=== PATIENT | female | born 1980 | race Caucasian/White ===

== ENCOUNTER 2016-05-14 08:01 | Emergency (ER) | payer OTHER ==
[~2016-05-14] VITALS: Ht 165.1 cm; Wt 149.6 kg
[~2016-05-14 08:01] MED LIST: ALBU18HF INH; ALBU8.5H2 INHALATION; BENZ-12 PO; CEPH500C PO; DIHY1SPR NS; DILT60TA PO; FLEC100T2 PO; HYDR25TA4 PO; IBUP800T28 PO; LEVO88TA4 PO; LORA-303 PO; LURA60TA PO; MULT-1018 PO; NYST1POW23 TOPICAL; OXYC1TAB24 PO; POTA20TA16 PO; SOMA350 PO; VERA180T5 PO
[2016-05-14 08:08] VITALS: BP 139/98; PULSE 81; RESP 20; O2SAT 99
[2016-05-14 08:58] VITALS: BP 120/67; PULSE 84; RESP 22; O2SAT 97
--- NOTE | 2016-05-14 09:03 | ED.REPORT ---
HPI-Chest Pain 40 and Over Date of Service May 14, 2016 ED Provider: Eriberto Cooper MD History of Present Illness: There is no template for palpitations, so this template was used 36 year old female with a history of Afib on Flecainide and Diltiazem, HTN and SVT who presents to the ED due to a sudden onset of palpitations this morning at 0600 when she woke up. With the palpitations she reports associated chest heaviness, SOB, dizziness, lightheadedness, mild headache and diaphoresis. She has a home pulse ox which showed a heart rate of 138. Her heart rate improved after taking her normal dose of Flecainide this morning after her symptoms lasted for approximately 1 hour. Pt denies taking any recent stimulant including caffeine, alcohol and drug use. Pt is currently on Prednisone for bronchitis. She is not on anticoagulants. Pt denies edema. 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 Baltazar Nursing Notes Stated Complaint: HIGH HR/SOB Chief Complaint: Dysrhythmia/Cardiac Nursing Notes Reviewed: Yes ([employer] not reconciled) Allergies: Coded Allergies: azithromycin (Verified Allergy, Severe, causes a-fib, 07/14/15) White (Verified Allergy, Intermediate, Rash, 10/24/14) citric acid (Verified Allergy, Intermediate, Rash, 10/24/14) hydrocodone bitartrate (Verified Allergy, Mild, GI, 10/24/14) Scheduled Albuterol HFA (Proair HFA) 8.5 Gm Hfa.aer.ad 2 PUFFS INHALATION Q4H Cephalexin (Cephalexin) 500 Mg Capsule 500 MG PO QID Flecainide Acetate (Flecainide Acetate) 100 Mg Tablet 100 MG PO BID Hydrochlorothiazide (Hydrochlorothiazide) 25 Mg Tablet 25 MG PO DAILY Levothyroxine (Levothyroxine) 88 Mcg Tablet 88 MCG PO DAILY Lurasidone (Latuda) 60 Mg Tablet 60 MG PO HS Multivitamin (Multi Vitamin Daily) 1 Each Tablet 1 EACH PO DAILY Nystatin (Nystatin) 1 Each Powder.ea. 1 EACH TOPICAL BID Potassium Chloride (Potassium Chloride) 20 Meq Tab.er.prt 20 MEQ PO DAILY TAKE WITH FOOD Verapamil ER (Verapamil ER) 180 Mg Tablet.er 180 MG PO DAILY Scheduled PRN Albuterol Sulfate (Ventolin HFA Inhaler) 200 Puff/18 Gm Inhaler 1-2 PUFF INH Q4 PRN PRN shortness of breath Benzonatate (Tessalon Perle) 100 Mg Capsule 100 MG PO TID PRN PRN For Cough Carisoprodol (Carisoprodol) 350 Mg Tab 350 MG PO TID PRN PRN muscle spasms Diltiazem (Cardizem) 60 Mg Tablet 60 MG PO PRN PRN PRN a-fib Ibuprofen (Ibuprofen) 800 Mg Tablet 800 MG PO TID PRN PRN For Pain Lorazepam (Ativan) 1 Mg Tablet 1 MG PO TID PRN PRN For Anxiety oxyCODONE-Acetaminophen 5-325 mg (oxyCODONE-Acetaminophen 5-325 mg) 1 Each Tablet 1 TAB PO Q6H PRN PRN For Pain oxyCODONE-Acetaminophen 5-325 mg (oxyCODONE-Acetaminophen 5-325 mg) 1 Each Tablet 1-2 TAB PO Q6H PRN PRN For Pain Miscellaneous Medications Dihydroergotamine Mesylate (Migranal) 1 Ml [place].pump 1 ML NS General Time Seen by MD: 08:55 Chief Complaint Chest pressure, Other (palpitations) Hx Obtained From: Patient, Spouse Arrived By: Walk-in Sudden in Onset?: Yes Onset Occurred: 1 - 4 hours ago Symptom Duration: 1 - 4 hours Location: : Substernal Quality: Painful Radiation: : Does not radiate Severity: Current: No pain currently Severity: Maximum: Mild Associated with: Reports: Diaphoresis, Palpitations, Shortness of Breath Relieved by: Prescription meds Similar Sx Previous: Yes Risk Factors )( CAD Risk Stratification Risk factors reviewed )( TAD Risk Stratification Risk factors reviewed )( PE Risk Stratification Risk factors reviewed Past Medical History Past Medical History Notes: Med list PCP May 2016: Abilify 35 mg daily Ativan 1 mg 3 times a day. Benadryl 25 mg 1-2 tabs when necessary Celebrex 200 mg 1 tablet daily Depo-Provera IM Diltiazem 30 mg 1 tab when necessary and daily Duloxetine 30 mg delayed release 1 tab 2 times a day Flecainide 100 mg tabs 1 tab twice a day Flomax 0.4 mg daily Gabapentin 600 mg 3 times a day Hydrochlorothiazide 25 mg daily Neurontin 600 mg twice a day Pantoprazole 40 mg daily Percocet 09/05/2024 one tab every 6 hours as needed Potassium 20 mEq 2x daily Soma 350 mg 1 tablet 3 times a day when necessary Sumatriptan 100 mg for migraine. Synthroid 88 g 1 tab daily Trazodone 100 mg 1 tab 2 times a day Verapamil extended release 180 mg tab daily Past Medical History Fibromyalgia Bipolar Anxiety Kidney Stones History of esophageal stricture requiring dilation 10+ years ago Chronic back pain Hypothyroid Asthma Paroxysmal Afib 05/2013 - on daily flecainide, not anticoagulated History of SVT May 2010 Reports: Cancer, Hypertension Past Surgical History Abscess removed from uterus Adenoidectomy Ear tubes Reports: , Cholecystectomy, Tonsillectomy Family History History of heart disease (grandfather, quadruple bypass) Smoking History Former Smoker Social History Alcohol Use: Denies alcohol use Drug Use: In recovery Other Social History: Good social support, Ambulatory Status Independent Review of Systems Basic Review of Systems Eyes: Vision NL, No discharge ENT: Hearing NL, No pain, No nasal congestion, No pharyngeal pain Constitutional: Denies: Fever Respiratory: Reports: Shortness of breath, Denies: Non-productive cough Cardiovascular: Reports: Chest pain, Palpitations, Denies: Edema GI: Denies: Abdominal pain, Diarrhea, Nausea, Vomiting Musculoskeletal: Denies: Back pain, Extremity pain Skin: Reports Diaphoresis, Denies Rash Neurologic: Reports: Dizziness, Headache, Lightheaded, Denies: Change LOC Complete sys rev & neg: except as marked. Physical Exam Initial Vital Signs Vital Signs (First) Date Time Temp Pulse Resp B/P Pulse Ox O2 Delivery O2 Flow Rate FiO2 05/14/16 08:08 36.1 81 20 139/98 99 05/14/16 08:58 Room Air Initial VS: Reviewed, Vital signs normal Head / Eyes: Atraumatic, Normocephalic, PERRL ENT: Mucous membranes moist, Conjunctiva normal, No scleral icterus Neck: Supple, Non-tender, Full range of motion Extremities: Vascular intact, Neuro intact, No swelling, No tenderness Skin: Warm, Dry, No cyanosis Neurologic: Alert, Oriented, Nonfocal Psychiatric: Mood/affect normal, Behavior normal, Normal thought content General/Constitutional: Awake, Alert Appearance / Presentation: Positive: Obese Respiratory / Chest: Breath sounds NL, Breath sounds = bilat, No respiratory distress, No rales, No rhonchi, No wheezing, No stridor, No chest tenderness Cardiovascular: Heart rate NL, Regular rhythm, Heart sounds NL, No murmurs, Peripheral circulation NL Abdomen: Soft, Non-tender Interpretation & Diagnostics Lab Results Interpretation Result Diagram: 05/14/16 0945 05/14/16 0945 Test 05/14/16 09:45 White Blood Count 15.2th/mm3 (3.8-10.1) Red Blood Count 5.03mil/mm3 (3.90-5.20) Hemoglobin 14.0g/dL (12.0-15.6) Hematocrit 42.2% (35.0-46.0) Mean Corpuscular Volume 83.9fL (81-100) Mean Corpuscular Hemoglobin 27.8pg (27.0-35.0) Mean Corpuscular Hemoglobin Concent 33.2% (32.0-37.0) Red Cell Distribution Width 13.6% (12.3-15.4) Platelet Count 220bil/L (150-400) Neutrophils (%) (Auto) 66.0% (40-74) Lymphocytes (%) (Auto) 21.8% (14-46) Monocytes (%) (Auto) 9.3% (4-12) Eosinophils (%) (Auto) 0.7% (0-5) Basophils (%) (Auto) 0.3% (0-3) Sodium Level 139mEq/L (134-144) Potassium Level 3.5mEq/L (3.5-5.2) Chloride Level 105mEq/L (97-108) Carbon Dioxide Level 21mmol/L (18-29) Blood Urea Nitrogen 9mg/dL (6-20) Creatinine 0.65mg/dL (0.57-1.00) Estimat Glomerular Filtration Rate 148mL/min (>59) Glucose Level 88mg/dL (60-99) Calcium Level 8.8mg/dL (8.5-10.1) Magnesium Level 2.3mg/dL (1.6-2.6) Total Bilirubin 0.2mg/dL (0.0-1.2) Aspartate Amino Transf (AST/SGOT) 12U/L (0-50) Alanine Aminotransferase (ALT/SGPT) 21U/L (0-32) Alkaline Phosphatase 124U/L (25-150) Troponin T < 0.010ug/L (0.0-0.011) Total Protein 6.2g/dL (6.4-8.4) Albumin 3.8g/dL (3.4-5.0) Thyroid Stimulating Hormone (TSH) 3.090uIU/mL (0.450-4.500) Hold Rahman Top Tube Received (Received) Lab Results Interpretation: CBC leukocytosis (no clinical findings of infection are present, patient on prednisone) CMP normal TSH normal General Lab Results Interp 1: Labs reviewed ECG Interpretation ECG Interpretation: No QRS widening. Normal Qt. No worsening from previous 07/14/15. Time: 08:44 Interpreted by: ED physician Normal ECG Interpretation: Normal rate (78), Normal sinus rhythm X-Ray Chest Interpretation Chest Xray Interpretation: IMPRESSION: Low lung volumes with mild patchy atelectasis. Dictated by: Anselmo Gomez M.D. on 05/14/2016 at 11:28 View: Portable, 1 view Interpretation / Wet Read by: Interpret - Radiologist Re-Eval/Medical Decision Med Decision/Clinical Course This is a 36-year-old female with a history of paroxysmal atrial fibrillation and SVT on daily flecainide and verapamil presents with an episode of severe palpitations and a measured heart rate of 138 at home. Symptoms last about an hour she had near syncopal these are similar to what she has had a prior atrophic relation. She has taken her normal dose of flecainide, she has taken her normal dose of verapamil-she is also been on prednisone for a mild bronchitis recently, but has not taken the extra dose of diltiazem she has been told to take if she has symptoms as he was not sure if she should or should not in the setting of her prednisone use. She feels better on arrival to ED, and had converted to a sinus rhythm just before she arrived, although she still felt fatigued. She is not febrile, she is not toxic, her vitals are normal. She had no dysrhythmic events during her ED. She is obese but otherwise has a normal exam. No pneumonia or congestive heart failure was appreciated on a chest x- ray. Blood work is normal. Ptosis, but this would be expected on steroids-and there is no evidence of pneumonia or othe other similarly severe pathology. Patient to go ahead and receive her extra dose of diltiazem as a preventative. No dysrhythmic events. Symptoms resolved while in the ED. The patient is being discharged with routine instructions and precautions. No indications for change in her medications at this time, but have advised to go and take the extra dose of diltiazem tomorrow very stiff. Follow-up PCP, just cardiology appointment in another month and a half, and a single episode of atrial fibrillation (which seems most likely here) and not finding indication that pain are an expedited appointment as necessary this time. Patient is discharged much improved condition Source of Hx: Old records Time of Eval: 10:01 Re-Evaluation/Progress Note: Pt resting comfortably. She has taken her verapamil today. Time of Eval: 11:00 Re-Evaluation/Progress Note: Pt remains in NSR throughout stay in ED. Updated pt of labs, ECG and imaging results. Discussed plan for discharge and follow up. All questions addressed. Counseled Regarding: Diagnosis, Lab results, Need for follow-up, When/why to return to ED Discharge & Departure Primary Impression: Dysrhythmia Arrhythmia type: unspecified cardiac arrhythmia Qualified Code: I49.9 - Cardiac arrhythmia, unspecified Disposition: Home Discharge Condition All VS Reviewed: Yes Condition: Improved 1. Your symptoms and description are certainly suspicious for an episode of atrial fibrillation today. 2. You are back in normal sinus rhythm in the ED. 3. Your blood tests were normal. 4. Continue your flecainide. 5. Continue your daily verapamil. 6. You received your extra dose of diltiazem in the ED today, and I recommend taking one more dose tomorrow to try and prevent a recurrance. 7. Activities as tolerated 8. Return if new or worsening symptoms Referrals: Tre Baltazar MD (PCP) Galileo Voss MD Scribe Attestation Portions of this note were transcribed by Lakeisha Perez. I, (Dr. Cooper) personally performed the history, physical exam and medical decision-making; I reviewed and confirmed the accuracy of the information in the transcribed note. Signed by: Lakeisha Perez. 05/14/2016, 1134 copies to: Tre Baltazar MD; Galileo Voss MD, Matthew F MD May 14, 2016 09:02 Lakeisha Perez May 14, 2016 09:33
[2016-05-14 10:01] LABS: BASOPHILS % (AUTO) 0.3 % (0-3); EOSINOPHILS % (AUTO) 0.7 % (0-5); MONOCYTES % (AUTO) 9.3 % (4-12); Mean Corpuscular Hemoglobin 27.8 pg (27.0-35.0); Mean Corpuscular Volume 83.9 fL (81-100); Platelet Count 220 bil/L (150-400)
[2016-05-14 10:31] LABS: Magnesium 2.3 mg/dL (1.6-2.6)
[2016-05-14 10:35] LABS: TROPONIN T < 0.010 ug/L (0.0-0.011)
[2016-05-14 11:28] VITALS: BP 127/81; PULSE 77; RESP 18; O2SAT 99
--- NOTE | 2016-05-14 11:30 | DRSVH ---
PROCEDURE: X-RAY CHEST ONE VIEW, PORTABLE ([id number]) INDICATIONS: CP TECHNIQUE: One view of the chest was acquired. COMPARISON: [facility], CR, XR CHEST 2VW, 07/14/2015, 14:05. FINDINGS: Surgical changes and devices: None. Lungs and pleura: No pleural effusions or pneumothorax. Mild patchy atelectasis in the lung bases. L ow lung volumes. Mediastinum: Mediastinal contours appear normal. Heart size is normal. Bones and chest wall: No suspicious bony lesions. Overlying soft tissues appear unremarkable. IMPRESSION: Low lung volumes with mild patchy atelectasis. Dictated by: Anselmo Gomez M.D. on 05/14/2016 at 11:28 Approved by: Anselmo Gomez M.D. on 05/14/2016 at 11:28
== END 2016-05-14 11:30 | disposition home or self-care (01) ==
LOC: SED 08:01
DX: I48.0 Paroxysmal atrial fibrillation (principal); R51 Headache; R61 Generalized hyperhidrosis; J45.909 Unspecified asthma, uncomplicated; I10 Essential (primary) hypertension; M79.7 Fibromyalgia; E03.9 Hypothyroidism, unspecified; F31.9 Bipolar disorder, unspecified; Z87.891 Personal history of nicotine dependence; Z88.1 Allergy status to other antibiotic agents; Z88.2 Allergy status to sulfonamides; Z91.018 Allergy to other foods; Z91.09 Other allergy status, other than to drugs and biological substances

== ENCOUNTER 2016-07-18 21:28 | Emergency (ER) | payer OTHER ==
[~2016-07-18] VITALS: Ht 165.1 cm; Wt 161.8 kg
[2016-07-18 21:38] VITALS: BP 131/74; PULSE 84; RESP 24; O2SAT 97
--- NOTE | 2016-07-18 22:04 | ED.REPORT ---
HPI-Abd Pain F Under 40 Date of Service Jul 18, 2016 ED Provider: Eleanor Wallace MD Patient is a 36 year old female with a history of kidney stones, atrial fibrillation, hypertension, and SVT who presents to the ED complaining of bilateral flank pain that began 4 days ago. Patient reports a "pulling sensation " in her kidney when she urinates, but she denies any burning with urination. Patient was seen at Urgent Care last night, with a normal urinalysis. She was referred to the ED but returned home instead after she encountered a 3 hour wait for the ED. Patient states that today she developed nausea and upper abdominal pain. Her pain feels like biliary cholic, but she is s/p cholecystectomy. Patient last had a CT scan over a year ago, which did show left nephrolithiasis. She also admits to decreased appetite and increased thirst. Her urine has been cloudy and dark but she denies decreased urination. The patient denies a history of diabetes mellitus, but reports a positive family history. The patient recently gained 25lbs after several medication changes. Patient denies hematuria or fever Nursing Notes Stated Complaint: BILATERAL SIDE PAIN Chief Complaint: Female Abdominal Pain Nursing Notes Reviewed: Yes Allergies: Coded Allergies: azithromycin (Verified Allergy, Severe, causes a-fib, 07/14/15) White (Verified Allergy, Intermediate, Rash, 10/24/14) citric acid (Verified Allergy, Intermediate, Rash, 10/24/14) hydrocodone bitartrate (Verified Allergy, Mild, GI, 10/24/14) Scheduled Albuterol HFA (Proair HFA) 8.5 Gm Hfa.aer.ad 2 PUFFS INHALATION Q4H Cephalexin (Cephalexin) 500 Mg Capsule 500 MG PO QID Flecainide Acetate (Flecainide Acetate) 100 Mg Tablet 100 MG PO BID Hydrochlorothiazide (Hydrochlorothiazide) 25 Mg Tablet 25 MG PO DAILY Levothyroxine (Levothyroxine) 88 Mcg Tablet 88 MCG PO DAILY Lurasidone (Latuda) 60 Mg Tablet 60 MG PO HS Multivitamin (Multi Vitamin Daily) 1 Each Tablet 1 EACH PO DAILY Nystatin (Nystatin) 1 Each Powder.ea. 1 EACH TOPICAL BID Potassium Chloride (Potassium Chloride) 20 Meq Tab.er.prt 20 MEQ PO DAILY TAKE WITH FOOD Verapamil ER (Verapamil ER) 180 Mg Tablet.er 180 MG PO DAILY Scheduled PRN Albuterol Sulfate (Ventolin HFA Inhaler) 200 Puff/18 Gm Inhaler 1-2 PUFF INH Q4 PRN PRN shortness of breath Benzonatate (Tessalon Perle) 100 Mg Capsule 100 MG PO TID PRN PRN For Cough Carisoprodol (Carisoprodol) 350 Mg Tab 350 MG PO TID PRN PRN muscle spasms Diltiazem (Cardizem) 60 Mg Tablet 60 MG PO PRN PRN PRN a-fib Hyoscyamine SL (Levsin SL) 0.125 Mg Tab.subl 0.125 MG SL TID PRN PRN For Pain Ibuprofen (Ibuprofen) 800 Mg Tablet 800 MG PO TID PRN PRN For Pain Lorazepam (Ativan) 1 Mg Tablet 1 MG PO TID PRN PRN For Anxiety oxyCODONE-Acetaminophen 5-325 mg (oxyCODONE-Acetaminophen 5-325 mg) 1 Each Tablet 1 TAB PO Q6H PRN PRN For Pain oxyCODONE-Acetaminophen 5-325 mg (oxyCODONE-Acetaminophen 5-325 mg) 1 Each Tablet 1-2 TAB PO Q6H PRN PRN For Pain Miscellaneous Medications Dihydroergotamine Mesylate (Migranal) 1 Ml [place].pump 1 ML NS General Time Seen by MD: 21:59 Chief Complaint Flank pain right, Flank pain left Hx Obtained From: Patient Arrived By: Walk-in Sudden in Onset?: No Onset Occurred: 4 days ago Symptom Duration: Since onset Progression since Onset: Gradually worsening Location: : Flank left: Flank right Quality: Painful Radiation: : Abdomen upper Severity: Current: Moderate Severity: Maximum: Severe Recent Healthcare: Recent doctor visit Similar Sx Previous: Yes Past Medical History Past Medical History Fibromyalgia Bipolar Anxiety Kidney Stones History of esophageal stricture requiring dilation 10+ years ago Chronic back pain Hypothyroid Asthma Paroxysmal Afib 05/2013 - on daily flecainide, not anticoagulated History of SVT May 2010 Reports: Cancer, Hypertension Past Surgical History Abscess removed from uterus Adenoidectomy Ear tubes Reports: , Cholecystectomy, Tonsillectomy Family History History of heart disease (grandfather, quadruple bypass) Smoking History Former Smoker Social History Alcohol Use: Denies alcohol use Drug Use: In recovery Other Social History: Good social support, , Local resident Ambulatory Status Independent Review of Systems Review of Systems Note: + decreased appetite, increased thirst, weight gain Constitutional: Denies: Fever GI: Reports: Abdominal pain, Nausea, Denies: Vomiting Female: Reports: Dysuria (but denies burning), Flank pain, Denies: Hematuria, Urination decreased Complete sys rev & neg: except as marked. Physical Exam Initial Vital Signs Vital Signs (First) Date Time Temp Pulse Resp B/P Pulse Ox O2 Delivery O2 Flow Rate FiO2 07/18/16 21:38 36.5 84 24 131/74 97 Room Air Initial VS: Reviewed Head / Eyes: Atraumatic, Normocephalic, PERRL ENT: Conjunctiva normal, No scleral icterus Neck: Supple, Full range of motion Extremities: Vascular intact, Neuro intact, No swelling Skin: Warm, Dry, No cyanosis Neurologic: Alert, Oriented, Nonfocal Psychiatric: Mood/affect normal, Behavior normal, Normal thought content General/Constitutional: Awake, Alert Appearance / Presentation: Positive: Obese, morbidly Respiratory / Chest: Breath sounds NL, Breath sounds = bilat, No respiratory distress, No rales, No rhonchi, No wheezing Cardiovascular: Heart rate NL, Regular rhythm, Heart sounds NL, No murmurs Abdomen: Soft, No guarding, No rebound Tenderness/Guarding/Rebound: Positive: Tender diffuse (mild) Back: No midline vertebral tend Flank / Spine / Paraspinal: Positive: Flank tender L, Flank tender R Interpretation & Diagnostics Lab Results Interpretation Result Diagram: 07/18/16222807/18/162228 Test 07/18/16 22:15 07/18/16 22:17 07/18/16 22:29 Hold Urine Received (Received) Urine Color Yellow (YELLOW) Urine Appearance Clear (CLEAR,HAZY) Urine pH 6.0 (5.0-8.0) Urine Specific [place] 1.030 (1.003-1.035) Urine Protein Negativemg/dL (NEG,TRACE) Urine Glucose (UA) Negativemg/dL (NEGATIVE) Urine Ketones Negativemg/dL (NEGATIVE) Urine Occult Blood Negative (NEGATIVE) Urine Nitrite Negative (NEGATIVE) Urine Bilirubin Negative (NEGATIVE) Urine Urobilinogen Normalmg/dL (NORMAL) Urine Leukocyte Esterase Negative (NEGATIVE) Urine RBC 0-2/hpf (0-2) Urine WBC 0-5/hpf (0-5) Urine Epithelial Cells Moderate/hpf (NONE-MOD) Urine Crystals Amorphous urates (NONE Urine Bacteria Few/hpf (NONE-FEW) Urine Hyaline Casts None/lpf (NONE) Urine Granular Casts None seen (NONE SEEN) Urine Waxy Casts None seen (NONE SEEN) Urine Red Blood Cell Casts None seen (NONE SEEN) Urine White Blood Cell Casts None seen (NONE SEEN) Urine Mucus Present (None Seen) Urine Trichomonas None seen (NONE SEEN) Urine Yeast None (NONE SEEN) Urinalysis Comment None Urine Culture Reflexed Not indicated White Blood Count 8.0th/mm3 (3.8-10.1) Red Blood Count 4.77mil/mm3 (3.90-5.20) Hemoglobin 13.1g/dL (12.0-15.6) Hematocrit 40.1% (35.0-46.0) Mean Corpuscular Volume 84.1fL (81-100) Mean Corpuscular Hemoglobin 27.5pg (27.0-35.0) Mean Corpuscular Hemoglobin Concent 32.7% (32.0-37.0) Red Cell Distribution Width 13.8% (12.3-15.4) Platelet Count 208bil/L (150-400) Neutrophils (%) (Auto) 48.6% (40-74) Lymphocytes (%) (Auto) 34.1% (14-46) Monocytes (%) (Auto) 11.4% (4-12) Eosinophils (%) (Auto) 3.8% (0-5) Basophils (%) (Auto) 0.5% (0-3) Sodium Level 143mEq/L (134-144) Potassium Level 3.9mEq/L (3.5-5.2) Chloride Level 108mEq/L (97-108) Carbon Dioxide Level 20mmol/L (18-29) Blood Urea Nitrogen 12mg/dL (6-20) Creatinine 0.68mg/dL (0.57-1.00) Estimat Glomerular Filtration Rate 140mL/min (>59) Glucose Level 91mg/dL (60-99) Calcium Level 8.7mg/dL (8.5-10.1) Magnesium Level 2.2mg/dL (1.6-2.6) Total Bilirubin 0.2mg/dL (0.0-1.2) Aspartate Amino Transf (AST/SGOT) 20U/L (0-50) Alanine Aminotransferase (ALT/SGPT) 27U/L (0-32) Alkaline Phosphatase 124U/L (25-150) Total Protein 6.6g/dL (6.4-8.4) Albumin 4.0g/dL (3.4-5.0) Lipase 45U/L (13-60) Hold Rahman Top Tube Received (Received) CT Abd / Pelvis Interpretation CONCLUSION: Left nephrolithiasis without evidence of hydronephrosis. There is a 1 mm calcification in the left hemipelvis towards its uncertain whether this is mrely phlebolith or a distal ureteral calculus but there is no hydronephrosis. Radiologist: Chris Harman MD 07/18/2016 - 10:53:23 PM PDT Study type: Abdominal CT no contrast Interpretation / Wet Read by: Interpret - Radiologist Re-Eval/Medical Decision Med Decision/Clinical Course 36-year-old female with past medical history of hypertension, fibromyalgia, chronic back pain here with flank pain radiating to her groin. Differential diagnosis includes but is not limited to pyelonephritis versus nephrolithiasis versus urinary tract infection versus musculoskeletal pain. CBC, CMP, urinalysis are all unremarkable. CT abdomen and pelvis shows left nephrolithiasis without any evidence of obstruction. Patient was able to tolerate by mouth in the emergency department, was feeling much better, and was discharged with [place] and Zofran to go home with. She is aware and amenable to discharge at this time with very strict return precautions. Source of Hx: Old records Re-Evaluation/Progress : Time of Eval: 00:15 Patient Status: Condition improved Re-Evaluation/Progress Note: Rechecked the patient, to discuss the results of her CT scan. It appears that she has a kidney stone that is about to pass. Patient confirms that her allergy to Vicodin is nausea and vomiting, not a true allergic reaction. Patient understands and agrees with the plan to be discharged home. Discharge instructions and follow-up discussed. All questions were addressed. Return to the ED warnings given. Counseled Regarding: Diagnosis, Lab results, Need for follow-up, When/why to return to ED Discharge & Departure Primary Impression: Left ureteral calculus Additional Impression: Renal colic Disposition: Home Discharge Condition All VS Reviewed: Yes Condition: Stable Patient Instructions: Renal Colic (ED) Additional Instructions: Your CT scan showed that you have a kidney stone that is in the process of passing out of your kidney and into your ureter. Take [place] as directed for pain. Do not drink alcohol, drive, or take acetaminophen while on this medication. Take Zofran as needed for nausea. Take Levsin as directed for cramping pain Follow-up with your doctor in the next week. Return to the emergency department if your experience worsening pain, fever, shortness of breath, chest pain, or any other concerning symptoms. Your blood pressure was elevated today in the emergency department. Please be sure to follow up with your primary care physician to have this rechecked, as you may require regular blood pressure medications for management. Referrals: Tre Baltazar MD (PCP) Scribe Attestation Portions of this note were transcribed by Mayra Weiss. Dr. Rodrigo Corea personally performed the history, physical exam and medical decision-making; I reviewed and confirmed the accuracy of the information in the transcribed note. Signed by: Amy Wilcox, 07/19/2016 0032 copies to: Tre Baltazar MD, Rebecca A MD Jul 18, 2016 22:03 Mayra Weiss Jul 18, 2016 22:11 Portions of this note were transcribed by Mayra Weiss. Dr. Rodrigo Corea personally performed the history, physical exam and medical decision-making; I reviewed and confirmed the accuracy of the information in the transcribed note. Signed by: Amy Wilcox, 07/18/2016 2000 copies to: Tre Baltazar MD, Rebecca A MD Jul 18, 2016 22:03 Mayra Weiss Jul 18, 2016 22:11
[2016-07-18] MEDS ORDERED: 0.9% Sodium Chloride 1,000 ML IV ONE (22:12)
[2016-07-18] MEDS ORDERED: Ondansetron 2 mg/mL 2 mL Inj IVPUSH ONE (22:15)
[2016-07-18 22:25] LABS: APPEARANCE,URINE CLEAR (CLEAR,HAZY); COLOR,URINE YELLOW (YELLOW); OCCULT BLOOD,URINE NEGATIVE (NEGATIVE); UROBILINOGEN,URINE NORMAL (NORMAL)
[2016-07-18 22:35] LABS: BASOPHILS % (AUTO) 0.5 % (0-3); EOSINOPHILS % (AUTO) 3.8 % (0-5); MONOCYTES % (AUTO) 11.4 % (4-12); Mean Corpuscular Hemoglobin 27.5 pg (27.0-35.0); Mean Corpuscular Volume 84.1 fL (81-100); NEUTROPHILS % (AUTO) 48.6 % (40-74); Platelet Count 208 bil/L (150-400)
[2016-07-18 23:01] LABS: Magnesium 2.2 mg/dL (1.6-2.6)
[2016-07-18] MEDS ORDERED: MetoCLOpramide 5 mg/mL 2 mL Inj IVPUSH PRN (23:25)
[2016-07-19] MEDS ORDERED: _HYDROcodone/APAP 5-325 mg Tablet PO PRN (00:15)
[2016-07-19] MEDS ORDERED: HYDROcodone-APAP 5-325 mg Tablet PO ONE (00:15)
[2016-07-19] MEDS ORDERED: _Ondansetron ODT 4 mg Tablet PO PRN (00:15)
[2016-07-19] MEDS ORDERED: HYOS0.1281 SL (00:27)
[2016-07-19 00:46] VITALS: BP 157/80; PULSE 89; RESP 22; O2SAT 97
--- NOTE | 2016-07-19 09:28 | DRSVH ---
PROCEDURE: CT KUB ([id number]) INDICATIONS: flank pain TECHNIQUE: Noncontrast 5 mm thick sections acquired from the diaphragms to the symphysis. 5 mm thick coronal an d sagittal reformats were then performed. For radiation dose reduction, the following was used: aut omated exposure control, adjustment of mA and/or kV according to patient size. COMPARISON: Located Within [facility], CT, CT KUB, 11/21/2015, 13:02. Located Within [facility], CT, CT KU B, 08/29/2015, 12:14. Located Within [facility], CT, ABD/PELVIS W/CON (PNL), 11/12/2014, 23:11. [facility], CT, KUB - CT (PNL), 10/27/2014, 9:08. Located Within [facility], CT, ABD/PELVIS W/CON (P NL), 05/26/2014, 11:01. Located Within [facility], CT, KUB - CT (PNL), 02/02/2014, 6:49. [facility], CT, KUB - CT (PNL), 12/11/2013, 5:35. Located Within [facility], CT, KUB - CT (PNL), 07/03/2013, 8:58. Located [facility], CT, KUB - CT (PNL), 05/21/2013, 18:24. Located Within [facility], CR, AB D ACUTE SERIES, 05/16/2013, 19:56. Located Within [facility], CT, KUB - CT (PNL), 04/21/2013, 5:08. CT, ABD/PELVIS W/CON (PNL), 05/23/2010, 2:14. CT, ABD/PELVIS W/CON (PNL), 04/26/2009, 22:15. [facility] , CT, KUB - CT (PNL), 10/13/2008, 12:35. Located Within [facility], CT, CT KUB, 016, 9:37. FINDINGS: Image quality: Excellent. Lung bases: Lung bases are clear. Heart size is normal. Urinary system: Both kidneys are normal in size. 3 x 4 mm nonobstructing left renal stone is noted. No hydronephrosis or perinephric fat stranding. Both ureters appear non-dilated throughout their exp ected courses. 1 mm phlebolith adjacent to the posterior margin of the urinary bladder which is later al to the course of the left ureter. As as expected, the phlebolith is stable compared to prior exami nations. Bladder wall thickness is normal; no calcified bladder stones. Other solid organs: Liver and spleen are normal in size. Gallbladder is surgically absent. Pancrea s is normal in contours. No adrenal nodules. Peritoneum and bowel: Unenhanced bowel loops demonstrate normal wall thickness and caliber. No free fluid or air. The appendix is normal. Nodes and vessels: No retroperitoneal or mesenteric adenopathy by size criteria. Aorta and inferior vena cava are normal in caliber. Abdominal wall: No ventral hernias. Pelvis: No free pelvic fluid. No inguinal hernias or adenopathy. Bones: No suspicious bony lesions. No vertebral body compression fractures. IMPRESSION: 1. 3 x 4 mm nonobstructing left renal stone. 2. No hydronephrosis. 3. Status post cholecystectomy. Dictated by: Sandhya Rolon MD, PhD on 07/19/2016 at 9:17 Approved by: Sandhya Rolon MD, PhD on 07/19/2016 at 9:26
[2016-10-24] MEDS ORDERED: WARF5TAB PO (11:23)
[2016-10-24] MEDS ORDERED: WARF10TA PO (11:23)
== END 2016-07-19 00:47 | disposition home or self-care (01) ==
LOC: SED 21:28
DX: N20.1 Calculus of ureter (principal); N23 Unspecified renal colic; R11.0 Nausea; I11.9 Hypertensive heart disease without heart failure; I48.0 Paroxysmal atrial fibrillation; J45.909 Unspecified asthma, uncomplicated; M79.7 Fibromyalgia; F31.9 Bipolar disorder, unspecified; E03.9 Hypothyroidism, unspecified; Z87.891 Personal history of nicotine dependence; Z88.1 Allergy status to other antibiotic agents; Z88.5 Allergy status to narcotic agent; Z88.8 Allergy status to other drugs, medicaments and biological substances; Z91.018 Allergy to other foods
CPT/HCPCS: 36415; 74176; 80053; 81000; 81025; 83690; 83735; 85025; 96361; 96374; 96375; 99285; J1885; J2405; J2765; J7030

== ENCOUNTER 2016-08-06 22:48 | Emergency (ER) | payer OTHER ==
[~2016-08-06] VITALS: Ht 165.1 cm; Wt 163.8 kg
[~2016-08-06 22:48] MED LIST changes: +HYOS0.1281 SL
[2016-08-06 22:51] VITALS: BP 170/89; PULSE 88; RESP 20; O2SAT 98
--- NOTE | 2016-08-06 23:54 | ED.REPORT ---
HPI-Psychiatric Illness Date of Service Aug 06, 2016 ED Provider: Darinel Enriquez MD Patient is an obese 36 year old female with a history of fibromyalgia, bipolar disorder, depression, and prior psychiatric admissions for suicidal ideations who presents to the ED due to increasing depression for the past 2 weeks, with suicidal ideations for the past week. The patient states that she would take an overdose to commit suicide, which she has attempted previously. The patient denies taking any medications to harm herself tonight. The patient has a psychiatrist that manages her medications. However, her long time counselor retired in April and she has not yet found a new counselor. Patient admits to using CBD oil but denies any illicit drug use. She denies drinking alcohol. Patient was last admitted to [facility] in April 2012 for suicidal ideations and plan for medication overdose. She has previously tried to commit suicide in 2008 by a clonazepam and oxycodone overdose. Patient denies any homicidal ideations or hallucinations. Patient reports pain associated with her chronic back pain. Nursing Notes Stated Complaint: SUICIDAL THOUGHTS Chief Complaint: Psychiatric Complaint Nursing Notes Reviewed: Yes Allergies: Coded Allergies: azithromycin (Verified Allergy, Severe, causes a-fib, 08/06/16) White (Verified Allergy, Intermediate, Rash, 08/06/16) citric acid (Verified Allergy, Intermediate, Rash, 08/06/16) hydrocodone bitartrate (Verified Allergy, Mild, GI, 08/06/16) Scheduled Albuterol HFA (Proair HFA) 8.5 Gm Hfa.aer.ad 2 PUFFS INHALATION Q4H Cephalexin (Cephalexin) 500 Mg Capsule 500 MG PO QID Flecainide Acetate (Flecainide Acetate) 100 Mg Tablet 100 MG PO BID Hydrochlorothiazide (Hydrochlorothiazide) 25 Mg Tablet 25 MG PO DAILY Levothyroxine (Levothyroxine) 88 Mcg Tablet 88 MCG PO DAILY Lurasidone (Latuda) 60 Mg Tablet 60 MG PO HS Multivitamin (Multi Vitamin Daily) 1 Each Tablet 1 EACH PO DAILY Nystatin (Nystatin) 1 Each Powder.ea. 1 EACH TOPICAL BID Potassium Chloride (Potassium Chloride) 20 Meq Tab.er.prt 20 MEQ PO DAILY TAKE WITH FOOD Verapamil ER (Verapamil ER) 180 Mg Tablet.er 180 MG PO DAILY Scheduled PRN Albuterol Sulfate (Ventolin HFA Inhaler) 200 Puff/18 Gm Inhaler 1-2 PUFF INH Q4 PRN PRN shortness of breath Benzonatate (Tessalon Perle) 100 Mg Capsule 100 MG PO TID PRN PRN For Cough Carisoprodol (Carisoprodol) 350 Mg Tab 350 MG PO TID PRN PRN muscle spasms Diltiazem (Cardizem) 60 Mg Tablet 60 MG PO PRN PRN PRN a-fib Hydroxyzine HCl (HydrOXYzine Hcl) 50 Mg Tablet 50 MG PO HS PRN PRN sleep Hyoscyamine SL (Levsin SL) 0.125 Mg Tab.subl 0.125 MG SL TID PRN PRN For Pain Ibuprofen (Ibuprofen) 800 Mg Tablet 800 MG PO TID PRN PRN For Pain Lorazepam (Ativan) 1 Mg Tablet 1 MG PO TID PRN PRN For Anxiety oxyCODONE-Acetaminophen 5-325 mg (oxyCODONE-Acetaminophen 5-325 mg) 1 Each Tablet 1 TAB PO Q6H PRN PRN For Pain oxyCODONE-Acetaminophen 5-325 mg (oxyCODONE-Acetaminophen 5-325 mg) 1 Each Tablet 1-2 TAB PO Q6H PRN PRN For Pain Miscellaneous Medications Dihydroergotamine Mesylate (Migranal) 1 Ml [place].pump 1 ML NS General Time Seen by MD: 23:52 Chief Complaint Depressed, Suicidal ideation Hx Obtained From: Patient Arrived By: Walk-in Onset Occurred: 1 week ago Symptom Duration: Since onset Progression Since Onset: Gradually worsening Severity: Current: No pain currently Severity: Maximum: No pain Recent Healthcare: No recent doctor visit, No recent hospitalization Similar Sx Previous: Yes Risk-Psychiatric Illness Suicide Risk Stratification Suicide Risk Factors - Adult: : Previous attempt: Prior psych admissionNo: Alcohol use, Substance abuse RF Statements: Risk factors reviewed Past Medical History Past Medical History Fibromyalgia Bipolar Depression Prior psychiatric admissions for suicidal ideations and prior medication overdose Anxiety Kidney Stones History of esophageal stricture requiring dilation 10+ years ago Chronic back pain Hypothyroid Asthma Paroxysmal Afib 05/2013 - on daily flecainide, not anticoagulated History of SVT May 2010 Reports: Cancer, Hypertension Past Surgical History Abscess removed from uterus Adenoidectomy Ear tubes Reports: , Cholecystectomy, Tonsillectomy Family History History of heart disease (grandfather, quadruple bypass) Smoking History Former Smoker Social History Alcohol Use: Denies alcohol use Drug Use: In recovery Other Social History: Good social support, , Local resident Ambulatory Status Independent Review of Systems Psychiatric: Reports: Depression, Suicidal ideation, Denies: Hallucinations, auditory, Hallucinations, visual, Homicidal ideation Complete sys rev & neg: except as marked. Musculoskeletal: Reports: Back pain, Denies: Extremity pain Physical Exam Initial Vital Signs Vital Signs (First) Date Time Temp Pulse Resp B/P Pulse Ox O2 Delivery O2 Flow Rate FiO2 08/06/16 22:51 36.3 88 20 170/89 98 Room Air Initial VS: Reviewed Head / Eyes: Atraumatic, Normocephalic, PERRL ENT: Conjunctiva normal, No scleral icterus Neck: Supple, Full range of motion Respiratory: Breath sounds normal, Clear to auscultation, No respiratory distress Cardiovascular: Regular rate & rhythm, Heart sounds normal Extremities: Vascular intact, Neuro intact, No swelling Skin: Warm, Dry, No cyanosis General/Constitutional: Awake, Alert, No acute distress Appearance / Presentation: Positive: Obese, morbidly Neurologic: Oriented X3, Speech NL, No motor deficits, No sensory deficits Psychiatric: No hallucinations Abnormal Mood/Affect: Positive: Depressed, Fearful Abnormal Thinking / Perception: Positive: Suicidal, with plan Abdomen: Soft (obese), Non-tender, No guarding, No rebound Back: No midline vertebral tend Flank / Spine / Paraspinal: Positive: Lumbar paraspinal tend... Interpretation & Diagnostics Lab Results Interpretation Result Diagram: 08/07/16 0040 08/07/16 0040 Test 08/07/16 00:00 08/07/16 00:40 Urine Color Yellow (YELLOW) Urine Appearance Cloudy (CLEAR,HAZY) Urine pH 7.0 (5.0-8.0) Urine Specific [place] 1.015 (1.003-1.035) Urine Protein Negativemg/dL (NEG,TRACE) Urine Glucose (UA) Negativemg/dL (NEGATIVE) Urine Ketones Negativemg/dL (NEGATIVE) Urine Occult Blood Negative (NEGATIVE) Urine Nitrite Negative (NEGATIVE) Urine Bilirubin Negative (NEGATIVE) Urine Urobilinogen Normalmg/dL (NORMAL) Urine Leukocyte Esterase Negative (NEGATIVE) Urine RBC 0-2/hpf (0-2) Urine WBC 0-5/hpf (0-5) Urine Epithelial Cells Occasional/hpf (NONE-MOD) Urine Crystals None seen (NONE SEEN) Urine Bacteria Few/hpf (NONE-FEW) Urine Hyaline Casts None/lpf (NONE) Urine Granular Casts None seen (NONE SEEN) Urine Waxy Casts None seen (NONE SEEN) Urine Red Blood Cell Casts None seen (NONE SEEN) Urine White Blood Cell Casts None seen (NONE SEEN) Urine Mucus None seen (None Seen) Urine Trichomonas None seen (NONE SEEN) Urine Yeast None (NONE SEEN) Urinalysis Comment Amorphous sediment Urine Culture Reflexed Not indicated White Blood Count 8.7th/mm3 (3.8-10.1) Red Blood Count 4.70mil/mm3 (3.90-5.20) Hemoglobin 12.8g/dL (12.0-15.6) Hematocrit 39.0% (35.0-46.0) Mean Corpuscular Volume 83.0fL (81-100) Mean Corpuscular Hemoglobin 27.2pg (27.0-35.0) Mean Corpuscular Hemoglobin Concent 32.8% (32.0-37.0) Red Cell Distribution Width 14.0% (12.3-15.4) Platelet Count 203bil/L (150-400) Neutrophils (%) (Auto) 51.4% (40-74) Lymphocytes (%) (Auto) 31.6% (14-46) Monocytes (%) (Auto) 11.4% (4-12) Eosinophils (%) (Auto) 4.2% (0-5) Basophils (%) (Auto) 0.6% (0-3) Sodium Level 142mEq/L (134-144) Potassium Level 3.5mEq/L (3.5-5.2) Chloride Level 107mEq/L (97-108) Carbon Dioxide Level 20mmol/L (18-29) Blood Urea Nitrogen 16mg/dL (6-20) Creatinine 0.75mg/dL (0.57-1.00) Estimat Glomerular Filtration Rate 125mL/min (>59) Glucose Level 111mg/dL (60-99) Calcium Level 9.0mg/dL (8.5-10.1) Total Bilirubin 0.2mg/dL (0.0-1.2) Aspartate Amino Transf (AST/SGOT) 13U/L (0-50) Alanine Aminotransferase (ALT/SGPT) 16U/L (0-32) Alkaline Phosphatase 113U/L (25-150) Total Protein 6.6g/dL (6.4-8.4) Albumin 3.9g/dL (3.4-5.0) Thyroid Stimulating Hormone (TSH) 6.230uIU/mL (0.450-4.500) Re-Eval/Medical Decision Med Decision/Clinical Course 36-year-old with chronic depression presents with suicidal ideation, worsening over the past two weeks. No indication for involuntary hospitalization and no possibility of voluntary hospitalization presently. She is agreeable to remain safe tonight and to seek reevaluation if feeling suicidal this morning. Discharged in stable condition. Hydroxyzine provided for sleep. Source of Hx: Old records Re-Evaluation/Progress : Time of Eval: 01:21 Patient Status: Condition improved Re-Evaluation/Progress Note: Rechecked the patient. Discussed the results of her labs. Patient was informed that she will not be evaluated until the morning, as there is no night INHALATION THERAPIST. Patient states that she will to stay safe if discharged home and that she would return in the morning for addiction social worker. She will be discharged with medication to help her sleep. Her is comfortable with this plan and will make sure that the patient stays safe until tomorrow. She can return to the ED tomorrow morning for INHALATION THERAPIST evaluation. Patient understands and agrees with the plan to be discharged home. Discharge instructions and follow-up discussed. All questions were addressed. Return to the ED warnings given. Counseled Regarding: Diagnosis, Lab results, Need for follow-up, When/why to return to ED Discharge & Departure Impression: Primary Impression: Depression Depression Type: major depressive disorder Major depression recurrence: recurrent Active/Remission status: currently active Major depression episode severity: moderate Qualified Code: F33.1 - Major depressive disorder, recurrent, moderate Additional Impression: Suicidal ideations )( Condition at Discharge: No danger to self, No danger to others, No suicidal ideation, No homicidal ideation Disposition: Home Discharge Condition All VS Reviewed: Yes Condition: Stable Patient Instructions: Major Depression (DC) Additional Instructions: You have promised to remain safe tonight. Return tomorrow at about nine for further evaluation and social service availability. Follow-up also with your prescriber. Follow-up also with your doctor. Return if any immediate issues, particularly if you are feeling unsafe, or other new issues arise. Referrals: Tre Baltazar MD (PCP) Scribe Attestation Portions of this note were transcribed by Mayra Weiss. I, Dr. Enriquez personally performed the history, physical exam and medical decision-making; I reviewed and confirmed the accuracy of the information in the transcribed note. Signed by: Amy Wilcox, 08/07/2016 0150 copies to: Tre Baltazar MD, Christopher W MD Aug 06, 2016 23:54 Mayra Weiss Aug 07, 2016 00:03
[2016-08-07 00:48] LABS: APPEARANCE,URINE CLOUDY (CLEAR,HAZY); COLOR,URINE YELLOW (YELLOW); OCCULT BLOOD,URINE NEGATIVE (NEGATIVE); UROBILINOGEN,URINE NORMAL (NORMAL)
[2016-08-07 00:57] LABS: BASOPHILS % (AUTO) 0.6 % (0-3); EOSINOPHILS % (AUTO) 4.2 % (0-5); MONOCYTES % (AUTO) 11.4 % (4-12); Mean Corpuscular Hemoglobin 27.2 pg (27.0-35.0); NEUTROPHILS % (AUTO) 51.4 % (40-74); Platelet Count 203 bil/L (150-400)
[2016-08-07] MEDS ORDERED: HYDR50TA76 PO (01:25)
[2016-08-07 01:53] VITALS: BP 115/68; PULSE 76; RESP 18; O2SAT 97
[2016-08-07] MEDS ORDERED: HYDR-656 PO ×2 (19:14→19:16)
[2016-10-24] MEDS ORDERED: WARF10TA PO (11:23)
[2016-10-24] MEDS ORDERED: WARF5TAB PO (11:23)
== END 2016-08-07 01:58 | disposition home or self-care (01) ==
LOC: SED 22:48
DX: F33.1 Major depressive disorder, recurrent, moderate (principal); R45.851 Suicidal ideations; I11.9 Hypertensive heart disease without heart failure; I48.0 Paroxysmal atrial fibrillation; F31.9 Bipolar disorder, unspecified; M79.7 Fibromyalgia; J45.909 Unspecified asthma, uncomplicated; E03.9 Hypothyroidism, unspecified; Z87.891 Personal history of nicotine dependence; Z88.1 Allergy status to other antibiotic agents; Z88.5 Allergy status to narcotic agent; Z88.8 Allergy status to other drugs, medicaments and biological substances; Z91.018 Allergy to other foods
CPT/HCPCS: 36415; 80053; 81000; 81002; 81025; 82075; 84443; 85025; 99284; Q0177

== ENCOUNTER 2016-08-07 15:41 | Emergency (ER) | payer OTHER ==
[~2016-08-07] VITALS: Ht 165.1 cm; Wt 163.5 kg
[~2016-08-07 15:41] MED LIST changes: +HYDR50TA76 PO
[2016-08-07 15:58] VITALS: BP 125/80; PULSE 75; RESP 20; O2SAT 96
--- NOTE | 2016-08-07 16:41 | ED.REPORT ---
HPI-Psychiatric Illness Date of Service Aug 07, 2016 ED Provider: Myron Campos PA-C 89 female with a history of bipolar disorder, depression and psychiatric admissions presents with chief complaint of suicidal ideation. She wishes to be connected with services. She states this is been present for approximately one week. She can not identify a precipitating event. Her plan would be to overdose on pills, which she has done before. She states that she has had " more attempts that I can count, hands and feet." Denies drug and alcohol use. Patient reports that her therapist retired in April and she has been unable to find a replacement therapist that she is happy with. She also has a M.D. who prescribes her medications was been out of town for the last 2 and half weeks. She states that she currently has access to her medications and has been taking them. She was seen in this department last night, however there was no NAILER OPERATOR available to consult with. She was discharged to home with a safety plan and asked to return today. Ports that today she feels slightly better than she did yesterday. She rates her suicidality 7 or 8 out of 10. She states that yesterday it was 9 out of 10. She presents with her . Nursing Notes Stated Complaint: SELF HARM Chief Complaint: Psychiatric Complaint Nursing Notes Reviewed: Yes Allergies: Coded Allergies: azithromycin (Verified Allergy, Severe, causes a-fib, 08/06/16) White (Verified Allergy, Intermediate, Rash, 08/06/16) citric acid (Verified Allergy, Intermediate, Rash, 08/06/16) hydrocodone bitartrate (Verified Allergy, Mild, GI, 08/06/16) Scheduled Albuterol HFA (Proair HFA) 8.5 Gm Hfa.aer.ad 2 PUFFS INHALATION Q4H Cephalexin (Cephalexin) 500 Mg Capsule 500 MG PO QID Flecainide Acetate (Flecainide Acetate) 100 Mg Tablet 100 MG PO BID Hydrochlorothiazide (Hydrochlorothiazide) 25 Mg Tablet 25 MG PO DAILY Levothyroxine (Levothyroxine) 88 Mcg Tablet 88 MCG PO DAILY Lurasidone (Latuda) 60 Mg Tablet 60 MG PO HS Multivitamin (Multi Vitamin Daily) 1 Each Tablet 1 EACH PO DAILY Nystatin (Nystatin) 1 Each Powder.ea. 1 EACH TOPICAL BID Potassium Chloride (Potassium Chloride) 20 Meq Tab.er.prt 20 MEQ PO DAILY TAKE WITH FOOD Verapamil ER (Verapamil ER) 180 Mg Tablet.er 180 MG PO DAILY Scheduled PRN Albuterol Sulfate (Ventolin HFA Inhaler) 200 Puff/18 Gm Inhaler 1-2 PUFF INH Q4 PRN PRN shortness of breath Benzonatate (Tessalon Perle) 100 Mg Capsule 100 MG PO TID PRN PRN For Cough Carisoprodol (Carisoprodol) 350 Mg Tab 350 MG PO TID PRN PRN muscle spasms Diltiazem (Cardizem) 60 Mg Tablet 60 MG PO PRN PRN PRN a-fib Hyoscyamine SL (Levsin SL) 0.125 Mg Tab.subl 0.125 MG SL TID PRN PRN For Pain Ibuprofen (Ibuprofen) 800 Mg Tablet 800 MG PO TID PRN PRN For Pain Lorazepam (Ativan) 1 Mg Tablet 1 MG PO TID PRN PRN For Anxiety hydrOXYzine Hcl (HydrOXYzine Hcl) 25 Mg Tablet 25-50 MG PO HS PRN PRN For Insomnia oxyCODONE-Acetaminophen 5-325 mg (oxyCODONE-Acetaminophen 5-325 mg) 1 Each Tablet 1 TAB PO Q6H PRN PRN For Pain oxyCODONE-Acetaminophen 5-325 mg (oxyCODONE-Acetaminophen 5-325 mg) 1 Each Tablet 1-2 TAB PO Q6H PRN PRN For Pain Miscellaneous Medications Dihydroergotamine Mesylate (Migranal) 1 Ml [place].pump 1 ML NS General Time Seen by MD: 16:19 Chief Complaint Suicidal ideation Risk-Psychiatric Illness Suicide Risk Stratification Suicide Risk Factors - Adult: : Previous attempt: Prior psych admissionNo: Alcohol use, Substance abuse RF Statements: Risk factors reviewed Past Medical History Past Medical History Fibromyalgia Bipolar Depression Prior psychiatric admissions for suicidal ideations and prior medication overdose Anxiety Kidney Stones History of esophageal stricture requiring dilation 10+ years ago Chronic back pain Hypothyroid Asthma Paroxysmal Afib 05/2013 - on daily flecainide, not anticoagulated History of SVT May 2010 Reports: Cancer, Hypertension Past Surgical History Abscess removed from uterus Adenoidectomy Ear tubes Reports: , Cholecystectomy, Tonsillectomy Family History History of heart disease (grandfather, quadruple bypass) Smoking History Former Smoker Social History Alcohol Use: Denies alcohol use Drug Use: In recovery Other Social History: Good social support, , Local resident Ambulatory Status Independent Review of Systems General: Denies fever, chills, malaise. HEENT: Denies congestion, headache, sore throat. Respiratory: Denies dyspnea, cough, shortness of breath, wheezing. Cardiovascular: Denies chest pain, palpitations. Gastrointestinal: Denies vomiting, diarrhea, abdominal pain. Genitourinary: Denies frequency, urgency, dysuria, hematuria. Otherwise as noted in HPI. Physical Exam General: Well appearing, well developed, obese, mild distress. Tearful. Head: Atraumatic, normocephalic. Eyes: No scleral icterus or injection. No discharge. Vision grossly intact. ENT: Voice clear, hearing grossly intact. Respiratory: Regular rate and rhythm. Breath sounds present, clear to auscultation and equal bilaterally. No respiratory distress. No increased work of breathing, speaks in complete sentences. Cardiovascular: Regular rate and rhythm, without murmur, gallop or rub. No pedal edema. Gastrointestinal: Abdomen flat and non-tender without guarding or rebound. Bowel sounds normoactive. Skin: Warm and dry. Neurological: Grossly nonfocal. Psychological: Alert and oriented. Speech appropriate, linear and logical. Initial Vital Signs Vital Signs (First) Date Time Temp Pulse Resp B/P Pulse Ox O2 Delivery O2 Flow Rate FiO2 08/07/16 15:58 36.2 75 20 125/80 96 Room Air Initial VS: Vital signs normal Interpretation & Diagnostics Lab Results Interpretation Test 08/07/16 16:20 Hold Urine Received (Received) Re-Eval/Medical Decision Med Decision/Clinical Course 36-year-old female struggling with depression since she lost the services of her therapist several months ago presents with suicidal ideation. She reports having a plan, history of suicide attempts (the most recent 6 years ago) and history of hospitalizations. She is here with her . She was seen in this department last night seeking services, unfortunately there is no NAILER OPERATOR for her speak with. She was discharged to home with a safety plan and returns tonight hoping to speak to social work. She reports that her suicidal ideation actually improved since yesterday. She credits getting good sleep and the Vistaril she was given in the department. Physical examination reveals no medical instability. She has a meeting with him Juan José Fortune, who develops a safety plan with her, contacts [facility] on her behalf and connects her with crisis care. She has an appointment to be seen by her psychiatrist on Saturday. All involved to believe she is stable and safe to be discharged home. Patient and her understand and agree with the plan. Discharged home with prescription for Vistaril, instructions for psychiatry follow-up, and she return precautions. Discharge & Departure Impression: Primary Impression: Suicidal ideations Additional Impression: Depression Depression Type: unspecified Qualified Code: F32.9 - Major depressive disorder, single episode, unspecified )( Condition at Discharge: No danger to self, No danger to others, No homicidal ideation Disposition: Home Discharge Condition All VS Reviewed: Yes Condition: Stable Additional Instructions: Evaluation for suicidal ideation in the emergency department. This sounds as though he has developed an appropriate plan with ENT, our executive secretary social welfare. He has contacted [facility] on your behalf. He also provided you with contact information for crisis assistance. Please not hesitate to use the resources. I will write a prescription for hydroxyzine (Vistaril) 25 mg to assist you with sleep, but to a lesser degree than last night. Follow-up with your prescribing physician on Saturday as planned. Returns to the emergency department at any time if you feel unsafe, or a compulsion to act upon suicidal ideation or thoughts of harming yourself. Referrals: Tre Baltazar MD (PCP) EDSupervising Provider for APC: Geoffrey Marquis DO copies to: Tre Baltazar MD, Seth PA-C Aug 07, 2016 16:41
[2016-08-07] MEDS ORDERED: HYDR-656 PO ×2 (19:14→19:16)
[2016-08-07 20:06] VITALS: BP 117/68; PULSE 73; RESP 20; O2SAT 96
[2016-08-07 20:09] VITALS: BP 117/68; PULSE 73; RESP 20; O2SAT 96
[2016-10-24] MEDS ORDERED: WARF10TA PO (11:23)
[2016-10-24] MEDS ORDERED: WARF5TAB PO (11:23)
== END 2016-08-07 20:10 | disposition home or self-care (01) ==
LOC: SED 15:41
DX: R45.851 Suicidal ideations (principal); F32.9 Major depressive disorder, single episode, unspecified; I11.9 Hypertensive heart disease without heart failure; I48.0 Paroxysmal atrial fibrillation; J45.909 Unspecified asthma, uncomplicated; M79.7 Fibromyalgia; F31.9 Bipolar disorder, unspecified; E03.9 Hypothyroidism, unspecified; Z87.891 Personal history of nicotine dependence; Z88.1 Allergy status to other antibiotic agents; Z88.5 Allergy status to narcotic agent; Z88.8 Allergy status to other drugs, medicaments and biological substances; Z91.018 Allergy to other foods

== ENCOUNTER 2016-08-21 22:10 | Emergency (ER) | payer OTHER ==
[~2016-08-21] VITALS: Ht 165.1 cm; Wt 165.0 kg
[~2016-08-21 22:10] MED LIST changes: +HYDR-656 PO; -HYDR50TA76 PO
[2016-08-21 22:23] VITALS: BP 138/86; PULSE 86; RESP 28; O2SAT 97
--- NOTE | 2016-08-21 22:32 | ED.REPORT ---
HPI-General Illness Date of Service Aug 21, 2016 ED Provider: Dr. Darinel Enriquez M.D. A 36 year old female with a medical history including asthma, paroxysmal atrial fibrillation, hypertension, and anxiety presents to the ED with shortness of breath onset one week ago, without an identifiable precipitating event. Associated symptoms include wheezing and cough. The patient denies other symptoms. She has been using her inhaler regularly, which has provided relief until today. The patient also used her nebulizer x2 today, with short-term relief. Nursing Notes Stated Complaint: SHORT OF BREATH Chief Complaint: Respiratory Complaints Nursing Notes Reviewed: Yes Allergies: Coded Allergies: azithromycin (Verified Allergy, Severe, causes a-fib, 08/06/16) White (Verified Allergy, Intermediate, Rash, 08/06/16) citric acid (Verified Allergy, Intermediate, Rash, 08/06/16) hydrocodone bitartrate (Verified Allergy, Mild, GI, 08/06/16) Scheduled Albuterol HFA (Proair HFA) 8.5 Gm Hfa.aer.ad 2 PUFFS INHALATION Q4H Cephalexin (Cephalexin) 500 Mg Capsule 500 MG PO QID Flecainide Acetate (Flecainide Acetate) 100 Mg Tablet 100 MG PO BID Hydrochlorothiazide (Hydrochlorothiazide) 25 Mg Tablet 25 MG PO DAILY Levothyroxine (Levothyroxine) 88 Mcg Tablet 88 MCG PO DAILY Lurasidone (Latuda) 60 Mg Tablet 60 MG PO HS Multivitamin (Multi Vitamin Daily) 1 Each Tablet 1 EACH PO DAILY Nystatin (Nystatin) 1 Each Powder.ea. 1 EACH TOPICAL BID Potassium Chloride (Potassium Chloride) 20 Meq Tab.er.prt 20 MEQ PO DAILY TAKE WITH FOOD Prednisone (PredniSONE) 20 Mg Tablet 60 MG PO DAILY Verapamil ER (Verapamil ER) 180 Mg Tablet.er 180 MG PO DAILY Scheduled PRN Albuterol Neb Soln (Albuterol Neb Soln) 2.5 Mg/3 Ml Vial.neb 2.5 MG INHALATION Q4H PRN PRN wheeze Albuterol Sulfate (Ventolin HFA Inhaler) 200 Puff/18 Gm Inhaler 1-2 PUFF INH Q4 PRN PRN shortness of breath Benzonatate (Tessalon Perle) 100 Mg Capsule 100 MG PO TID PRN PRN For Cough Carisoprodol (Carisoprodol) 350 Mg Tab 350 MG PO TID PRN PRN muscle spasms Diltiazem (Cardizem) 60 Mg Tablet 60 MG PO PRN PRN PRN a-fib Hyoscyamine SL (Levsin SL) 0.125 Mg Tab.subl 0.125 MG SL TID PRN PRN For Pain Ibuprofen (Ibuprofen) 800 Mg Tablet 800 MG PO TID PRN PRN For Pain Lorazepam (Ativan) 1 Mg Tablet 1 MG PO TID PRN PRN For Anxiety hydrOXYzine Hcl (HydrOXYzine Hcl) 25 Mg Tablet 25-50 MG PO HS PRN PRN For Insomnia oxyCODONE-Acetaminophen 5-325 mg (oxyCODONE-Acetaminophen 5-325 mg) 1 Each Tablet 1 TAB PO Q6H PRN PRN For Pain oxyCODONE-Acetaminophen 5-325 mg (oxyCODONE-Acetaminophen 5-325 mg) 1 Each Tablet 1-2 TAB PO Q6H PRN PRN For Pain Miscellaneous Medications Dihydroergotamine Mesylate (Migranal) 1 Ml [place].pump 1 ML NS General Time Seen by MD: 22:31 Chief Complaint Breathing problem Hx Obtained From: Patient Arrived By: Walk-in Sudden in Onset?: No Onset Occurred: 1 week ago Symptom Duration: Since onset Severity: Current: No pain currently Severity: Maximum: No pain Associated with: Reports: Cough Additional Notes: Wheeze Pertinent Negative: Pt denies other symptoms Relieved by: Prescription meds (Short-term) Context Related History: Reports Asthma, Reports Depression, Reports Psychiatric history Recent Healthcare: No recent doctor visit Similar Sx Previous: Yes Past Medical History Past Medical History Fibromyalgia Bipolar Depression Prior psychiatric admissions for suicidal ideations and prior medication overdose Anxiety Kidney Stones History of esophageal stricture requiring dilation 10+ years ago Chronic back pain Hypothyroid Asthma Paroxysmal Afib 05/2013 - on daily flecainide, not anticoagulated History of SVT May 2010 Reports: Cancer, Hypertension Past Surgical History Abscess removed from uterus Adenoidectomy Ear tubes Reports: , Cholecystectomy, Tonsillectomy Family History History of heart disease (grandfather, quadruple bypass) Smoking History Former Smoker Social History Alcohol Use: Denies alcohol use Drug Use: In recovery Other Social History: Good social support, , Local resident Ambulatory Status Independent Review of Systems Full Review of Systems Constitutional: Denies: Fever Respiratory: Reports: Non-productive cough, Shortness of breath, Wheezing GI: Denies: Diarrhea, Vomiting Complete sys rev & neg: except as marked. Physical Exam Vital Signs Vital Signs Date Time Temp Pulse Resp B/P Pulse Ox O2 Delivery O2 Flow Rate FiO2 08/22/16 02:09 93 25 129/41 96 Room Air 08/22/16 01:41 91 22 141/62 96 Room Air 08/22/16 00:39 91 22 98 Room Air 08/21/16 22:57 84 24 94 Room Air 08/21/16 22:23 36.9 86 28 138/86 97 Room Air Initial VS: Reviewed Head / Eyes: Atraumatic, Normocephalic ENT: Conjunctiva normal, No scleral icterus Extremities: Vascular intact, Neuro intact, No swelling Skin: Warm, Dry, No cyanosis Neurologic: Alert, Oriented, Nonfocal Psychiatric: Mood/affect normal, Behavior normal, Normal thought content General/Constitutional: Awake, Alert Appearance / Presentation: Positive: Obese, morbidly Wheezing / Retractions: Positive: Wheezing moderate (Diffuse) Driven bronchospastic cough Cardiovascular: Heart rate NL, Regular rhythm, Heart sounds NL Abdomen: Soft, Non-tender Interpretation & Diagnostics Lab Results Interpretation Result Diagram: 08/21/16 2350 08/21/16 2350 Test 08/21/16 23:50 White Blood Count 8.5th/mm3 (3.8-10.1) Red Blood Count 4.76mil/mm3 (3.90-5.20) Hemoglobin 12.9g/dL (12.0-15.6) Hematocrit 40.3% (35.0-46.0) Mean Corpuscular Volume 84.7fL (81-100) Mean Corpuscular Hemoglobin 27.1pg (27.0-35.0) Mean Corpuscular Hemoglobin Concent 32.0% (32.0-37.0) Red Cell Distribution Width 14.5% (12.3-15.4) Platelet Count 193bil/L (150-400) Neutrophils (%) (Auto) 43.5% (40-74) Lymphocytes (%) (Auto) 38.9% (14-46) Monocytes (%) (Auto) 12.2% (4-12) Eosinophils (%) (Auto) 4.0% (0-5) Basophils (%) (Auto) 0.5% (0-3) Prothrombin Time 10.1sec (8.1-12.5) Prothromb Time International Ratio 0.95ratio Activated Partial Thromboplast Time 24.7sec (22.8-33.0) Sodium Level 142mEq/L (134-144) Potassium Level 3.1mEq/L (3.5-5.2) Chloride Level 105mEq/L (97-108) Carbon Dioxide Level 18mmol/L (18-29) Blood Urea Nitrogen 12mg/dL (6-20) Creatinine 0.81mg/dL (0.57-1.00) Estimat Glomerular Filtration Rate 115mL/min (>59) Glucose Level 152mg/dL (60-99) Calcium Level 9.0mg/dL (8.5-10.1) Magnesium Level 2.1mg/dL (1.6-2.6) Total Bilirubin 0.2mg/dL (0.0-1.2) Aspartate Amino Transf (AST/SGOT) 17U/L (0-50) Alanine Aminotransferase (ALT/SGPT) 17U/L (0-32) Alkaline Phosphatase 114U/L (25-150) Pro-B-Type Natriuretic Peptide 74.56pg/mL (0-130) Total Protein 6.8g/dL (6.4-8.4) Albumin 3.8g/dL (3.4-5.0) Procalcitonin 0.04ng/mL (0.00-0.08) Hold Rahman Top Tube Received (Received) X-Ray Chest Interpretation Chest Xray Interpretation: Extra markings due to body habitus Nothing acute View: Portable, 1 view Interpretation / Wet Read by: Wet read ED physician Re-Eval/Medical Decision Med Decision/Clinical Course 36-year-old female with a known history of asthma presents with exacerbation. Trigger may just be seasonal allergies. Improved here after multiple nebs and IV steroids. Home with prednisone, continue nebs, and plan for follow-up with PCP. X-ray shows no evidence of pneumonia, and no indication for antibiotics. Source of Hx: Old records Time of Eval: 01:02 Patient Status: Condition improved Re-Evaluation/Progress Note: Patient is feeling jittery from the medication but her breathing has improved. Time of Eval: 01:56 Patient Status: Condition improved Re-Evaluation/Progress Note: Discussed with patient x-ray and lab results, diagnosis, and plan for discharge. Follow-up and return to the ER instructions given. Patient agrees with plan for care and all questions were addressed. Counseled Regarding: Diagnosis, Lab results, Need for follow-up, When/why to return to ED Discharge & Departure Shift Change Sign-Out Response to Therapy: Improved Primary Impression: Asthma Asthma severity: moderate persistent Asthma complication type: with acute exacerbation Qualified Code: J45.41 - Moderate persistent asthma with (acute) exacerbation Disposition: Home Discharge Condition All VS Reviewed: Yes Condition: Improved Patient Instructions: Asthma (ED) Additional Instructions: Again prednisone three tablets daily for five days. Follow-up with your doctor in the office. Continue your nebulizer every 3-4 hours as needed. Return if worsening despite treatment. Referrals: Tre Baltazar MD (PCP) Scribe Attestation Portions of this note were transcribed by Elma Francis. I, Dr. Enriquez, personally performed the history, physical exam, and medical decision-making; I reviewed and confirmed the accuracy of the information in the transcribed note. Signed by: Amy Lawton, 08/22/2016, 03:30 copies to: Tre Baltazar MD, Christopher W MD Aug 21, 2016 22:32 ELMA FRANCIS Aug 21, 2016 22:43
[2016-08-21] MEDS ORDERED: 0.9% Sodium Chloride 1,000 ML IV ONE (22:39)
[2016-08-21] MEDS ORDERED: Albuterol-Ipratropium 3 mL Inhalation Solution NEB ONE (22:40)
[2016-08-21] MEDS ORDERED: MethylprednisoLONE Sodium Succinate 62.5 mg/mL 2 mL Inj IVPUSH ONE (22:40)
[2016-08-21] MEDS ORDERED: Albuterol 2.5 mg/3 mL Inhalation Solution NEB ONE (22:40)
[2016-08-21 22:57] VITALS: PULSE 84; RESP 24; O2SAT 94
[2016-08-22 00:03] LABS: BASOPHILS % (AUTO) 0.5 % (0-3); MONOCYTES % (AUTO) 12.2 % (4-12); Mean Corpuscular Hemoglobin 27.1 pg (27.0-35.0); Mean Corpuscular Volume 84.7 fL (81-100); NEUTROPHILS % (AUTO) 43.5 % (40-74); Platelet Count 193 bil/L (150-400)
[2016-08-22] MEDS ORDERED: Albuterol 2.5 mg/3 mL Inhalation Solution NEB ONE (00:20)
[2016-08-22] MEDS ORDERED: Albuterol-Ipratropium 3 mL Inhalation Solution NEB ONE (00:20)
[2016-08-22 00:23] LABS: INR 0.95 ratio
[2016-08-22 00:39] VITALS: PULSE 91; RESP 22; O2SAT 98
[2016-08-22 00:59] LABS: Magnesium 2.1 mg/dL (1.6-2.6)
[2016-08-22 01:41] VITALS: BP 141/62; PULSE 91; RESP 22; O2SAT 96
[2016-08-22] MEDS ORDERED: PRE20 PO (01:55)
[2016-08-22] MEDS ORDERED: ALBU2.5V4 INHALATION (01:59)
[2016-08-22 02:09] VITALS: BP 129/41; PULSE 93; RESP 25; O2SAT 96
--- NOTE | 2016-08-22 08:33 | DRSVH ---
PROCEDURE: X-RAY CHEST ONE VIEW, PORTABLE ([id number]) INDICATIONS: sob, cough TECHNIQUE: One view of the chest was acquired. COMPARISON: [facility], CR, XR CHEST 1VW (PORTABLE), 05/14/2016, 9:31. [facility], CR, XR CHEST 2VW, 07/14/2015, 14:05. FINDINGS: Surgical changes and devices: None. Lungs and pleura: No pleural effusions or pneumothorax. Lungs are clear considering reduced inspira tory volume and large body habitus. Mediastinum: Mediastinal contours appear normal. Heart size is at the upper limits of normal. Bones and chest wall: No suspicious bony lesions. Overlying soft tissues appear unremarkable. IMPRESSION: Reduced inspiration, large body habitus, no definite acute disease. A deep inspiratory P A and lateral chest plain film would be helpful for more accurate assessment of the lungs if clinical ly warranted. Dictated by: Denny Diez M.D. on 08/22/2016 at 8:30 Approved by: Denny Diez M.D. on 08/22/2016 at 8:32
[2016-08-23] MEDS ORDERED: GABA-504 PO (02:32)
[2016-08-23] MEDS ORDERED: proair HFA INHALATION (02:32)
[2016-08-23] MEDS ORDERED: BACL10TA PO (02:32)
[2016-08-23] MEDS ORDERED: SUMA100T2 PO (02:32)
[2016-08-23] MEDS ORDERED: POTA20TA16 PO (02:32)
[2016-08-23] MEDS ORDERED: TOPI200T7 PO (02:32)
[2016-08-23] MEDS ORDERED: GABA800T2 PO (02:32)
[2016-08-23] MEDS ORDERED: VERAPAMIL HCL PO (02:32)
[2016-08-23] MEDS ORDERED: depo (02:32)
[2016-08-23] MEDS ORDERED: FLEC100T2 PO (02:32)
[2016-08-23] MEDS ORDERED: Pantoprazole Sodium PO (02:32)
[2016-08-23] MEDS ORDERED: ONDA-54 PO (02:32)
[2016-08-23] MEDS ORDERED: LURA80TA3 PO (02:32)
[2016-08-23] MEDS ORDERED: HYDR25TA4 PO (02:32)
[2016-08-23] MEDS ORDERED: nystop (02:32)
[2016-08-23] MEDS ORDERED: LEVO88TA63 PO (02:32)
[2016-08-23] MEDS ORDERED: NAPR220C11 PO (02:39)
[2016-08-23] MEDS ORDERED: cannabis oil (02:39)
[2016-08-23] MEDS ORDERED: ASPI-973 PO (02:39)
[2016-08-23] MEDS ORDERED: hydroxyzine PO ×2 (02:39)
[2016-08-23] MEDS ORDERED: DIPH25CA6 PO (02:39)
[2016-08-23] MEDS ORDERED: KLO1T PO (02:47)
[2016-08-23] MEDS ORDERED: OXYC1TAB24 PO (02:47)
[2016-08-23] MEDS ORDERED: PRE20 PO ×2 (02:51→13:59)
[2016-08-23] MEDS ORDERED: DIHY1SPR NS (02:51)
[2016-08-23] MEDS ORDERED: VERA240T97 PO (08:37)
[2016-08-23] MEDS ORDERED: HYDR50TA76 PO (08:37)
[2016-08-23] MEDS ORDERED: ALBU8.5H2 INHALATION (08:37)
[2016-08-23] MEDS ORDERED: MEDR150D9 IM (08:37)
[2016-08-23] MEDS ORDERED: HYDR-656 PO (08:37)
[2016-08-23] MEDS ORDERED: PANT20TA2 PO (08:40)
[2016-08-23] MEDS ORDERED: NYST1POW23 TOP (08:42)
[2016-08-23] MEDS ORDERED: GABA600T2 PO (13:59)
[2016-08-23] MEDS ORDERED: ALBU2.5V4 INHALATION (13:59)
[2016-08-23] MEDS ORDERED: SOMA350 PO (14:11)
[2016-08-23] MEDS ORDERED: RISP1TAB3 PO (14:12)
[2016-08-23] MEDS ORDERED: RISP2TAB3 PO (14:12)
[2016-08-23] MEDS ORDERED: ZONI100C6 PO (14:18)
[2016-10-24] MEDS ORDERED: WARF10TA PO (11:23)
[2016-10-24] MEDS ORDERED: WARF5TAB PO (11:23)
== END 2016-08-22 02:09 | disposition home or self-care (01) ==
LOC: SED 22:10
DX: J45.41 Moderate persistent asthma with (acute) exacerbation (principal); I10 Essential (primary) hypertension; E03.9 Hypothyroidism, unspecified; G89.29 Other chronic pain; Z87.891 Personal history of nicotine dependence; Z88.1 Allergy status to other antibiotic agents; Z88.5 Allergy status to narcotic agent; Z91.018 Allergy to other foods
CPT/HCPCS: 36415; 71010; 80053; 83735; 83880; 84145; 85025; 85610; 85730; 94644; 94645; 96361; 96374; 99285; J2930; J7030; J7613; J7620

== ENCOUNTER 2016-08-22 19:34 | Inpatient (IN) | payer OTHER ==
[~2016-08-22] VITALS: Ht 165.1 cm; Wt 168.4 kg
[~2016-08-22 19:34] MED LIST changes: +ALBU2.5V4 INHALATION; +PRE20 PO
[2016-08-22 19:44] VITALS: BP 153/90; PULSE 102; RESP 20; O2SAT 95
[2016-08-22 20:30] LABS: BASOPHILS % (AUTO) 0.1 % (0-3); EOSINOPHILS % (AUTO) 0 % (0-5); Mean Corpuscular Hemoglobin 27.3 pg (27.0-35.0); Mean Corpuscular Volume 84.8 fL (81-100); NEUTROPHILS % (AUTO) 77.2 % (40-74); Platelet Count 209 bil/L (150-400)
[2016-08-22 21:02] VITALS: BP 112/61; PULSE 95; O2SAT 97
--- NOTE | 2016-08-22 21:11 | ED.REPORT ---
HPI-General Illness Date of Service Aug 22, 2016 ED Provider: Geoffrey Marquis DO 36 y/o female with a hx of atrial fibrillation, hyperthyroidism, HTN, asthma, endometriosis, depression, anxiety and suicide ideation presents to the ED complaining of wheezing, onset this morning. Associated sx include, SOB, dizziness and lightheadedness. PT reports these sx are similar to the asthma attacks she has had before. She used a nebulizer and then measured her oxygen, which was 91. She reports feeling better since arriving at the ED. She also reported to the ED last night for SOB and was given prednisone, which seemed to improve her sx. Nursing Notes Stated Complaint: LOW BLOOD PRESSURE,TROUBLE BREATHING Chief Complaint: General Complaint Nursing Notes Reviewed: Yes Allergies: Coded Allergies: azithromycin (Verified Allergy, Severe, causes a-fib, 08/22/16) White (Verified Allergy, Intermediate, Rash, 08/22/16) citric acid (Verified Allergy, Intermediate, Rash, 08/22/16) hydrocodone bitartrate (Verified Allergy, Mild, GI, 08/22/16) Scheduled Albuterol HFA (Proair HFA) 8.5 Gm Hfa.aer.ad 2 PUFFS INHALATION Q4H Cephalexin (Cephalexin) 500 Mg Capsule 500 MG PO QID Flecainide Acetate (Flecainide Acetate) 100 Mg Tablet 100 MG PO BID Hydrochlorothiazide (Hydrochlorothiazide) 25 Mg Tablet 25 MG PO DAILY Levothyroxine (Levothyroxine) 88 Mcg Tablet 88 MCG PO DAILY Lurasidone (Latuda) 60 Mg Tablet 60 MG PO HS Multivitamin (Multi Vitamin Daily) 1 Each Tablet 1 EACH PO DAILY Nystatin (Nystatin) 1 Each Powder.ea. 1 EACH TOPICAL BID Potassium Chloride (Potassium Chloride) 20 Meq Tab.er.prt 20 MEQ PO DAILY TAKE WITH FOOD Prednisone (PredniSONE) 20 Mg Tablet 60 MG PO DAILY Verapamil ER (Verapamil ER) 180 Mg Tablet.er 180 MG PO DAILY Scheduled PRN Albuterol Neb Soln (Albuterol Neb Soln) 2.5 Mg/3 Ml Vial.neb 2.5 MG INHALATION Q4H PRN PRN wheeze Albuterol Sulfate (Ventolin HFA Inhaler) 200 Puff/18 Gm Inhaler 1-2 PUFF INH Q4 PRN PRN shortness of breath Benzonatate (Tessalon Perle) 100 Mg Capsule 100 MG PO TID PRN PRN For Cough Carisoprodol (Carisoprodol) 350 Mg Tab 350 MG PO TID PRN PRN muscle spasms Diltiazem (Cardizem) 60 Mg Tablet 60 MG PO PRN PRN PRN a-fib Hyoscyamine SL (Levsin SL) 0.125 Mg Tab.subl 0.125 MG SL TID PRN PRN For Pain Ibuprofen (Ibuprofen) 800 Mg Tablet 800 MG PO TID PRN PRN For Pain Lorazepam (Ativan) 1 Mg Tablet 1 MG PO TID PRN PRN For Anxiety hydrOXYzine Hcl (HydrOXYzine Hcl) 25 Mg Tablet 25-50 MG PO HS PRN PRN For Insomnia oxyCODONE-Acetaminophen 5-325 mg (oxyCODONE-Acetaminophen 5-325 mg) 1 Each Tablet 1 TAB PO Q6H PRN PRN For Pain oxyCODONE-Acetaminophen 5-325 mg (oxyCODONE-Acetaminophen 5-325 mg) 1 Each Tablet 1-2 TAB PO Q6H PRN PRN For Pain Miscellaneous Medications Dihydroergotamine Mesylate (Migranal) 1 Ml [place].pump 1 ML NS General Time Seen by MD: 21:09 Chief Complaint Breathing problem Hx Obtained From: Patient Arrived By: Walk-in Sudden in Onset?: Yes Onset Occurred: 21 - 23 hours ago Symptom Duration: Since onset Severity: Current: No pain currently Severity: Maximum: No pain Recent Healthcare: Recent doctor visit Similar Sx Previous: Yes Past Medical History Past Medical History Fibromyalgia Bipolar Depression Prior psychiatric admissions for suicidal ideations and prior medication overdose Anxiety Kidney Stones History of esophageal stricture requiring dilation 10+ years ago Chronic back pain Hypothyroid Asthma Paroxysmal Afib 05/2013 - on daily flecainide, not anticoagulated History of SVT May 2010 Reports: Cancer, Hypertension Past Surgical History Abscess removed from uterus Adenoidectomy Ear tubes Reports: , Cholecystectomy, Tonsillectomy Family History History of heart disease (grandfather, quadruple bypass) Smoking History Former Smoker Social History Alcohol Use: Denies alcohol use Drug Use: In recovery Other Social History: Good social support, , Local resident Ambulatory Status Independent Review of Systems Full Review of Systems Respiratory: Reports: Shortness of breath, Wheezing Cardiovascular: Denies: Chest pain Neurologic: Reports: Dizziness, Lightheaded Complete sys rev & neg: except as marked. Physical Exam Vital Signs Vital Signs Date Time Temp Pulse Resp B/P Pulse Ox O2 Delivery O2 Flow Rate FiO2 08/22/16 22:44 92 117/65 95 Room Air 08/22/16 21:02 95 112/61 97 Room Air 08/22/16 19:44 36.4 102 20 153/90 95 Room Air Initial VS: Reviewed, Vital signs normal Head / Eyes: Atraumatic, Normocephalic ENT: Mucous membranes moist, Conjunctiva normal, No scleral icterus Neck: Supple, Full range of motion Cardiovascular: Regular rate & rhythm, Heart sounds normal, Intact distal pulses Abdomen / GI: Soft Extremities: Vascular intact, Neuro intact, No swelling, No tenderness Skin: Warm, Dry, No cyanosis Neurologic: Alert, Oriented, Nonfocal Psychiatric: Mood/affect normal, Behavior normal, Normal thought content General/Constitutional: Awake, Alert, Cooperative, Not toxic appearing Distress / Hydration: Positive: Distress mild Appearance / Presentation: Positive: Obese Respiratory / Chest: Atraumatic, Breath sounds NL, Breath sounds = bilat, No respiratory distress, No rales, No rhonchi, No wheezing, No retractions Back: Atraumatic, Full range of motion Interpretation & Diagnostics Lab Results Interpretation Result Diagram: 08/22/16202008/22/162020 Test 08/22/16 20:21 08/22/16 21:21 08/22/16 21:46 White Blood Count 16.3th/mm3 (3.8-10.1) Red Blood Count 4.79mil/mm3 (3.90-5.20) Hemoglobin 13.1g/dL (12.0-15.6) Hematocrit 40.6% (35.0-46.0) Mean Corpuscular Volume 84.8fL (81-100) Mean Corpuscular Hemoglobin 27.3pg (27.0-35.0) Mean Corpuscular Hemoglobin Concent 32.3% (32.0-37.0) Red Cell Distribution Width 14.5% (12.3-15.4) Platelet Count 209bil/L (150-400) Neutrophils (%) (Auto) 77.2% (40-74) Lymphocytes (%) (Auto) 11.2% (14-46) Monocytes (%) (Auto) 10.0% (4-12) Eosinophils (%) (Auto) 0% (0-5) Basophils (%) (Auto) 0.1% (0-3) D-Dimer 1.95mg/L FEU (<0.50) Sodium Level 138mEq/L (134-144) Potassium Level 3.8mEq/L (3.5-5.2) Chloride Level 104mEq/L (97-108) Carbon Dioxide Level 15mmol/L (18-29) Blood Urea Nitrogen 11mg/dL (6-20) Creatinine 0.85mg/dL (0.57-1.00) Estimat Glomerular Filtration Rate 108mL/min (>59) Glucose Level 243mg/dL (60-99) Calcium Level 9.5mg/dL (8.5-10.1) Total Bilirubin 0.2mg/dL (0.0-1.2) Aspartate Amino Transf (AST/SGOT) 17U/L (0-50) Alanine Aminotransferase (ALT/SGPT) 17U/L (0-32) Alkaline Phosphatase 118U/L (25-150) Troponin T 0.010ug/L (0.0-0.011) Total Protein 7.4g/dL (6.4-8.4) Albumin 4.2g/dL (3.4-5.0) Hold Rahman Top Tube Received (Received) Hold Urine Received (Received) ECG Interpretation ECG Interpretation: Non specific ST changes Time: 21:27 Interpreted by: ED physician Normal ECG Interpretation: Normal rate (94) Re-Eval/Medical Decision Med Decision/Clinical Course Dyspnea on exertion of unclear etiology currently awaiting results of CT pulmonary angiogram. Care transferred to Dr. Enriquez Source of Hx: Old records Counseled Regarding: Diagnosis, Lab results Discharge & Departure Shift Change Sign-Out Patient Care Transferred: Yes Discussed Complaint(s): Yes Laboratory Evaluation: Lab evaluation discussed Imaging Studies: Done, await radiologist Primary Impression: Asthma Referrals: Tre Baltazar MD (PCP) Care Transferred to: Dr. Enriquez. Care Transferred at: 23:55 Scribe Attestation Portions of this note were transcribed by Milly King and Lakeisha Perez. I, personally performed the history, physical exam and medical decision-making;I reviewed and confirmed the accuracy of the information in the transcribed note. Signed by Milly King and Amy Artis. 08/22/16 [id number] copies to: Tre Baltazar MD, Timothy S DO Aug 22, 2016 21:11 Milly King Aug 22, 2016 21:28
[2016-08-22 22:44] VITALS: BP 117/65; PULSE 92; O2SAT 95
[2016-08-22] MEDS ORDERED: 0.9% Sodium Chloride 1,000 ML IV ONE (22:55)
[2016-08-22] MEDS ORDERED: Albuterol-Ipratropium 3 mL Inhalation Solution NEB ONE (23:50)
[2016-08-23] VITALS (12 sets, daily range): BP systolic 117–136; BP diastolic 60–75; PULSE 71–92; RESP 16–26; O2SAT 94–99
[2016-08-23] MEDS ORDERED: Heparin 25K Unit/500mL 0.45 NS 25,000 UNIT in IV Premix 1 EACH IV ONE (00:05)
[2016-08-23] MEDS ORDERED: Heparin 5,000 Unit/mL Inj IVPUSH ONE (00:05)
[2016-08-23] MEDS ORDERED: Alum-Mag Hydrox-Simeth 30 mL Suspension PO PRN (00:25)
[2016-08-23] MEDS ORDERED: Ondansetron 2 mg/mL 2 mL Inj IVPUSH PRN (00:25)
[2016-08-23] MEDS ORDERED: Polyethylene Glycol (PEG) 17 Gm Powder PO PRN (00:25)
[2016-08-23] MEDS ORDERED: LURA80TA3 PO (02:32)
[2016-08-23] MEDS ORDERED: LEVO88TA63 PO (02:32)
[2016-08-23] MEDS ORDERED: GABA800T2 PO (02:32)
[2016-08-23] MEDS ORDERED: TOPI200T7 PO (02:32)
[2016-08-23] MEDS ORDERED: FLEC100T2 PO (02:32)
[2016-08-23] MEDS ORDERED: proair HFA INHALATION (02:32)
[2016-08-23] MEDS ORDERED: POTA20TA16 PO (02:32)
[2016-08-23] MEDS ORDERED: HYDR25TA4 PO (02:32)
[2016-08-23] MEDS ORDERED: Pantoprazole Sodium PO (02:32)
[2016-08-23] MEDS ORDERED: GABA-504 PO (02:32)
[2016-08-23] MEDS ORDERED: SUMA100T2 PO (02:32)
[2016-08-23] MEDS ORDERED: VERAPAMIL HCL PO (02:32)
[2016-08-23] MEDS ORDERED: depo (02:32)
[2016-08-23] MEDS ORDERED: BACL10TA PO (02:32)
[2016-08-23] MEDS ORDERED: nystop (02:32)
[2016-08-23] MEDS ORDERED: ONDA-54 PO (02:32)
[2016-08-23] MEDS ORDERED: DIPH25CA6 PO (02:39)
[2016-08-23] MEDS ORDERED: ASPI-973 PO (02:39)
[2016-08-23] MEDS ORDERED: NAPR220C11 PO (02:39)
[2016-08-23] MEDS ORDERED: cannabis oil (02:39)
[2016-08-23] MEDS ORDERED: hydroxyzine PO ×2 (02:39)
[2016-08-23] MEDS ORDERED: OXYC1TAB24 PO (02:47)
[2016-08-23] MEDS ORDERED: KLO1T PO (02:47)
[2016-08-23] MEDS ORDERED: DIHY1SPR NS (02:51)
[2016-08-23] MEDS ORDERED: PRE20 PO ×2 (02:51→13:59)
[2016-08-23] MEDS ORDERED: HYDROXYZINE 50 MG PO PRN (03:30)
[2016-08-23] MEDS ORDERED: Heparin 1,000 Units/mL 10 mL DVT/PE Bolus Inj IVPUSH PRN (03:30)
[2016-08-23] MEDS ORDERED: Heparin 25K Unit/500mL 0.45 NS 25,000 UNIT in IV Premix 1 EACH IV SCH (03:30)
[2016-08-23] MEDS ORDERED: diphenhydrAMINE 25 mg Capsule PO PRN (03:30)
[2016-08-23] MEDS ORDERED: HYDROXYZINE 25 MG PO PRN (03:30)
--- NOTE | 2016-08-23 03:54 | PCM.HPMED ---
Subjective Date of Service Aug 23, 2016 Primary Provider: Admitting Physician: Indy Borjas DO Primary Care Physician: Tre Baltazar MD Attending Physician: Indy Borjas DO Admit Status: From the Emergency Department Chief Complaint: Shortness of breath History of Present Illness: Mrs. Cynthia Brown is a 36 year old woman with a complex medication history of numerous diagnoses including atrial fibrillation not on long-term anticoagulation, fibromyalgia, bipolar depression with history of suicidal ideation and attempts via overdose, history of tobacco use, hypothyroidism, HTN , and morbid obesity, that presented to [facility] with a one day history of increasing shortness of breath that had been present over recent week leading to admission, with associated dizziness, and lightheadedness. She was admitted for evaluation and treatment of bilateral pulmonary emboli of bilateral lower lobes. Hospital day one. She was seen in the ED 08/21 for suspected asthma exacerbation, with sx of SOB , and her sx were reported to be improved following steroid administration and nebulizer treatments. She reports she returned home, and throughout the day of admission, she became progressively short of breath, and unable to ambulate without developing severe dyspnea. Associated symptoms include bilateral lower extremity swelling, with the right leg more so than the left, but she is unsure if any erythema had developed she is unable to visualize her legs. She reports extreme difficulty ambulating even short distances as little as 5 feet secondary to her acute respiratory failure. She shares that she has been short of breath over the most recent month, but has been able to function without difficulty until the day prior to and the day of admission. She reports intermittent tobacco use, is not on long-term anticoagulation for atrial fibrillation, she denies any recent surgeries, but has been more stationary since development of her shortness of breath approximately one month ago. She denies any history of DVT or PE, admits to Depo-Provera as control use, and denies any personal or family history of autoimmune disorders. She denies any family history of clotting disorders. In the ED, temperature 36.4, pulse 102, respiratory rate 20, blood pressure 153/ 90, 95% on room air. Initial lab revealed white count 16.3, hemoglobin 13.1, platelets 209; glucose 243, troponin 0.010, pro calcitonin 0.04. CTA revealed pulmonary emboli in the bilateral lower lobar pulmonary arterial branches. PE protocol heparin drip was initiated and continued upon transfer to the floor. Patient was transferred to [facility] in stable condition. Review of Systems: Complete ROS obtained; pertinent positives and negatives as noted in HPI Allergies Coded Allergies: azithromycin (Verified Allergy, Severe, causes a-fib, 08/22/16) White (Verified Allergy, Intermediate, Rash, 08/22/16) citric acid (Verified Allergy, Intermediate, Rash, 08/22/16) hydrocodone bitartrate (Verified Allergy, Mild, GI, 08/22/16) Home Medications Extensive list obtained by ED documentation Scheduled Albuterol HFA (Proair HFA) 8.5 Gm Hfa.aer.ad 2 PUFFS INHALATION Q4H Cephalexin (Cephalexin) 500 Mg Capsule 500 MG PO QID Flecainide Acetate (Flecainide Acetate) 100 Mg Tablet 100 MG PO BID Hydrochlorothiazide (Hydrochlorothiazide) 25 Mg Tablet 25 MG PO DAILY Levothyroxine (Levothyroxine) 88 Mcg Tablet 88 MCG PO DAILY Lurasidone (Latuda) 60 Mg Tablet 60 MG PO HS Multivitamin (Multi Vitamin Daily) 1 Each Tablet 1 EACH PO DAILY Nystatin (Nystatin) 1 Each Powder.ea. 1 EACH TOPICAL BID Potassium Chloride (Potassium Chloride) 20 Meq Tab.er.prt 20 MEQ PO DAILY TAKE WITH FOOD Prednisone (PredniSONE) 20 Mg Tablet 60 MG PO DAILY Verapamil ER (Verapamil ER) 180 Mg Tablet.er 180 MG PO DAILY Scheduled PRN Albuterol Neb Soln (Albuterol Neb Soln) 2.5 Mg/3 Ml Vial.neb 2.5 MG INHALATION Q4H PRN PRN wheeze Albuterol Sulfate (Ventolin HFA Inhaler) 200 Puff/18 Gm Inhaler 1-2 PUFF INH Q4 PRN PRN shortness of breath Benzonatate (Tessalon Perle) 100 Mg Capsule 100 MG PO TID PRN PRN For Cough Carisoprodol (Carisoprodol) 350 Mg Tab 350 MG PO TID PRN PRN muscle spasms Diltiazem (Cardizem) 60 Mg Tablet 60 MG PO PRN PRN PRN a-fib Hyoscyamine SL (Levsin SL) 0.125 Mg Tab.subl 0.125 MG SL TID PRN PRN For Pain Ibuprofen (Ibuprofen) 800 Mg Tablet 800 MG PO TID PRN PRN For Pain Lorazepam (Ativan) 1 Mg Tablet 1 MG PO TID PRN PRN For Anxiety hydrOXYzine Hcl (HydrOXYzine Hcl) 25 Mg Tablet 25-50 MG PO HS PRN PRN For Insomnia oxyCODONE-Acetaminophen 5-325 mg (oxyCODONE-Acetaminophen 5-325 mg) 1 Each Tablet 1 TAB PO Q6H PRN PRN For Pain oxyCODONE-Acetaminophen 5-325 mg (oxyCODONE-Acetaminophen 5-325 mg) 1 Each Tablet 1-2 TAB PO Q6H PRN PRN For Pain The time of admission, patient requesting Latuda. PMH Fibromyalgia Bipolar Depression Prior psychiatric admissions for suicidal ideations and prior medication overdose of clonazepam and oxycodone Anxiety Kidney Stones History of esophageal stricture requiring dilation 10+ years ago Chronic back pain Hypothyroid Asthma Paroxysmal Afib 05/2013 - on daily flecainide, not anticoagulated History of SVT May 2010 Reports: Cancer, Hypertension Surgical History -Cholecystectomy 2004 - section -Abscess removal from uterus Family History Reports: Diabetes father; denies any family history of cardiac disease, pulmonary disease, autoimmune disorders, or clotting disorders Social History Occupation: disabled Hx Alcohol Use: Yes (VERY OCCAISIONAL ) Hx Substance Use: No Hx Tobacco Use: No Smoking Status: Former Smoker (quit approximately 3 months ago; previously 1 pack per day) Living Arrangement: with Family (; local) Exam Vital Signs Vital Sign - Last Date Time Temp Pulse Resp B/P Pulse Ox O2 Delivery O2 Flow Rate FiO2 08/23/16 02:12 83 24 135/69 97 Room Air 08/22/16 19:44 36.4 Intake and Output 08/22/16 08/22/16 08/23/16 Cumulative From/Thru 15:00 23:00 07:00 08/22/16 19:44 - 08/23/16 02:13 Intake Total 1000 ml 1000 ml Balance 1000 ml 1000 ml Intake IV Total 1000 ml 1000 ml Exam General: AAOx3; pleasant and cooperative; no acute distress HEENT: Atraumatic, sclerae anicteric, EOMI, mucous membranes moist Neck: Full range of motion, including tender chest, without pain Cardiac: Regular rate and rhythm at time of examination, no fibrillation or murmurs appreciated Resp: Adequate airflow all kaur, decreased sounds at bases secondary to body habitus, no wheeze appreciated Abdomen: Obese, soft, nontender Extremities: Bilateral lower extremities with mild dependent edema, mild tenderness R>L; no erythema noted Skin: Warm and dry MSK: Able to mobilize all 4 extremities against gravity Neuro: Cranial nerves II through XII grossly intact, facial expressions symmetric, speech without slur Psych: Appropriate mood, affect, and responses to questioning Lab and Diagnostics Result Diagram: 08/22/16202008/22/162020 Assessment & Plan Mrs. Cynthia Brown is a 36 year old woman with a complex medication history of numerous diagnoses including atrial fibrillation not on long-term anticoagulation, fibromyalgia, bipolar depression with history of suicidal ideation and attempts via overdose, hypothyroidism, history of tobacco use, HTN , and morbid obesity, that presented to [facility] with a one day history of increasing shortness of breath that had been present over recent week leading to admission, with associated dizziness, and lightheadedness. She was admitted for evaluation and treatment of bilateral pulmonary emboli of bilateral lower lobes. Hospital day one. Bilateral lower lobar pulmonary artery emboli, acute, present on admission. Under therapy -CTA 08/22/16 revealed pulmonary emboli in the bilateral lower lobar pulmonary artery branches; final report is pending -Reports recent decreased mobility secondary to shortness of breath, intermittent tobacco use, use of Depo-Provera; denies any history of DVT/PE; denies any family history of autoimmune disorders or clotting disorders; denies any recent surgeries -Heparin drip initiated in ED; continued -Saturating well on room air -ECHO in am BLLE swelling and pain, acute, present on admission. Under evaluation -Patient reports right greater than left lower extremity swelling and tenderness -DDx: Development of heart failure, DVT, dependent edema from decreased mobility -Bilateral lower extremity venous ultrasound to be completed -Complete echo to evaluate for heart failure History of suicidal ideation in the setting of severe depression and bipolar disorder, chornic. Presumed stable -No current symptoms; patient is reported to be stable -Mental health evaluation completed 08/07/16 described a severely depressed patient with suicidal thoughts, with plan to overdose, but without intent and contracts for safety. -Per previous documentation, patient had suicide attempt approximately 6 years ago -PLATFORM ATTENDANT consultation for follow-up has been placed -Resume home psych meds when med rec completed Atrial fibrillation, likely paroxysmal, chronic. Presumed stable -Not on terminal superintendent anticoagulation at time of admission -Tele -Continue home medications when med rec completed -Discuss options for senior living anticoagulation Morbid obesity, chronic. Ongoing -Dietary consultation -Specialized bed -Continued counseling Hypothyroidism, chronic. Presumed stable -If inadequately medicated, may attribute to heart arrhythmias which can make her prone to clot development -Continue home thyroid medication at this time -Free T4 and TSH in a.m. Back pain, chronic. Presumed stable -Likely secondary to extreme body habitus -Continue home meds when verified -PT eval for gait stability Please verify which pharmacy is utilized by the patient in the morning. Pharmacy contacted night team and was unable to verify many of the prescriptions. Prescriptions were placed on hold, with the exception of Latuda , which was given at the patient's request. - DVT: PE protocol heparin gtt - Diet: Heart healthy - GI: Not indicated - PRN fever/pain/antiemetic/bowel - Code status: FULL CODE Patient status: Due to severity of presenting symptoms, risk of adverse events, and likely course of care, anticipated LOS > 2 midnights; pt admitted as INPT to [facility] Pain Evaluation: Adequate Pain Control GI Prophylaxis: Not indicated VTE Prophylaxis: Other (PE heparin gtt) Resuscitation Status: CPR: Attempt Resuscitation Attending Statement The patient was seen and examined together with house staff on 08/23/16 and I agree with the history, exam and plan as outlined in the note above. Eloise Bueno DO Aug 23, 2016 02:49 Indy Borjas DO Aug 23, 2016 05:10
--- NOTE | 2016-08-23 04:22 | NUR ---
Admit: Pt admitted to [facility]. health history completed via pt interview. Med rec completed from pt home med list. Vitals stable. Sp02 90s on Ra, No s/s of resp distress at rest- pt does have dyspnea/ wheezing on exertion. Pt placed on SOCIAL SERVICE COORDINATOR to monitor sp02 ( hx of SRI with non compliance CPAP) Heparin gtt infusing per DVT/ PE protocol. next ptt ordered for 0600. Care ongoing.
[2016-08-23 05:47] LABS: BASOPHILS % (AUTO) 0.3 % (0-3); EOSINOPHILS % (AUTO) 0.2 % (0-5); MONOCYTES % (AUTO) 9.8 % (4-12); Mean Corpuscular Hemoglobin 27.2 pg (27.0-35.0); Mean Corpuscular Volume 85.8 fL (81-100); NEUTROPHILS % (AUTO) 57.8 % (40-74); Platelet Count 180 bil/L (150-400)
[2016-08-23 06:18] LABS: Magnesium 2.1 mg/dL (1.6-2.6); Phosphorus 3.5 mg/dL (2.5-4.9)
[2016-08-23] MEDS: Pantoprazole 20 mg ER24 Tablet PO SCH ×2 (07:46→20:09)
[2016-08-23] MEDS ORDERED: VERAPAMIL HCL 240 MG PO SCH (08:30)
--- NOTE | 2016-08-23 08:35 | DRSVH ---
PROCEDURE: X-RAY CHEST, TWO VIEWS ([id number]) INDICATIONS: cough, wheezes TECHNIQUE: 2 views of the chest were acquired. COMPARISON: [facility], CR, XR CHEST 2VW, 07/14/2015, 14:05. FINDINGS: Surgical changes and devices: None. Lungs and pleura: No pleural effusions or pneumothorax. There is mild pulmonary edema redemonstrate d. No focal consolidation. Mediastinum: Mediastinal contours are unchanged. Heart size is enlarged. Bones and chest wall: No suspicious bony abnormalities. Soft tissues appear unremarkable. IMPRESSION: 1. Mild pulmonary edema redemonstrated without focal consolidation. Dictated by: Ammon Llanos M.D. on 08/23/2016 at 8:31 Approved by: Ammon Llanos M.D. on 08/23/2016 at 8:33
[2016-08-23] MEDS ORDERED: MEDR150D9 IM (08:37)
[2016-08-23] MEDS ORDERED: HYDR-656 PO (08:37)
[2016-08-23] MEDS ORDERED: VERA240T97 PO (08:37)
[2016-08-23] MEDS ORDERED: HYDR50TA76 PO (08:37)
[2016-08-23] MEDS ORDERED: ALBU8.5H2 INHALATION (08:37)
--- NOTE | 2016-08-23 08:38 | DRSVH ---
PROCEDURE: CT ANGIO CHEST PULMONARY EMBOLISM ([id number]) INDICATIONS: dyspnea elevated ddimer TECHNIQUE: After the administration of intravenous contrast, 2 mm thick sections acquired from the pulmonary api jose elias to the posterior costophrenic angles. 3-dimensional maximum intensity projection (MIP) coronal a nd sagittal reformats were then acquired through the thorax. For radiation dose reduction, the follo wing was used: automated exposure control, adjustment of mA and/or kV according to patient size. COMPARISON: None. FINDINGS: Image quality: Suboptimal opacification of central pulmonary arteries. Pulmonary arteries: Pulmonary arteries are normal in size. There are filling defects in upper and lo wer lobe lobar arteries and segmental arteries consistent with pulmonary embolism. Lungs and pleura: Lungs are clear. No pleural effusions or pneumothorax. Central and peripheral ai rways are patent. Mediastinum: Heart size is normal, without pericardial effusion. No mediastinal or hilar adenopathy . Thoracic aorta is normal in caliber and enhancement. Esophagus is normal in caliber, without hiat al hernia. Bones and chest wall: No suspicious bony lesions. Ribs and thoracic spine appear intact throughout. Thyroid gland is normal. No axillary or supraclavicular adenopathy. Abdomen: The gallbladder is surgically absent. Visualized upper abdominal solid organs appear normal in the early arterial phase of enhancement. IMPRESSION: Bilateral central pulmonary emboli. No significant discrepancy with the retail shift supervisor radiology preliminary report. Dictated by: Yobani Holland M.D. on 08/23/2016 at 8:33 Approved by: Yobani Holland M.D. on 08/23/2016 at 8:36
[2016-08-23] MEDS ORDERED: PANT20TA2 PO (08:40)
[2016-08-23] MEDS ORDERED: NYST1POW23 TOP (08:42)
--- NOTE | 2016-08-23 10:17 | NUR ---
Social Work: Initial Assessment D: Per EMR review, pt is a 36 year old female admitted for bilateral PE. Pt is [facility] insurance with no LTC or VA benefits. PCP is Tre Baltazar MD. NOK is Shmuel Brown, spouse, . Advanced directives not completed- declined info from KITCHEN STEWARDESS. Readmit score not entered at this time. KITCHEN STEWARDESS met with pt and spouse at bedside, per Case Management consult from admissions MD. Sw role explained. Pt was in the ER for suicidal thoughts on 08/07/2016 and was discharged home with an outpatient follow up appointment/resources. Pt states to this KITCHEN STEWARDESS that she has not been having suicidal thoughts since her discharge and has been seeing a therapist named Talita Su at [facility]. Pt intends to continue seeing her therapist after discharge as her services have been very helpful. Pt and spouse both deny any needs at discharge and willingly participated in further assessment. Pt and spouse live at home in [place] with their adolecent children. pt is I with ADLs at baseline, drives and has never had or Skilled rehab. Pt lives in a two story home with several steps to enter and a flight of internal stairs. Pt has no concerns about navigating stairs. Pt's spouse will transport home. A: Pt who is I at baseline. P: Anticipate pt to discharge home with her spouse to transport; no sw needs identified. Pt will continue to see her outpatient therapist and declined any current suicidal ideation. COY Seo Addendum: 08/23/16 at 1024 by MIKALA JEAN Amended: Links added.
--- NOTE | 2016-08-23 10:36 | PCM.PNMED ---
Subjective Date of Service Aug 23, 2016 Subjective 36 year old woman with atrial fibrillation, fibromyalgia, bipolar depression, hypothyroidism, HTN, and morbid obesity, presentedwith a one day history of increasing shortness of breath due to bilateral pulmonary emboli She reports less dyspnea today. He would ambulate to bathroom. No chest pain. She frustrated by not receiving her other complex chronic medication schedule at time of admission. Exam Vital Signs Vital Sign - Last Date Time Temp Pulse Resp B/P Pulse Ox O2 Delivery O2 Flow Rate FiO2 08/23/16 07:36 37.1 80 24 129/74 99 Room Air Intake and Output 08/22/16 08/22/16 08/23/16 Cumulative From/Thru 15:00 23:00 07:00 08/22/16 19:44 - 08/23/16 05:10 Intake Total 1690 ml 1690 ml Output Total 250 ml 250 ml Balance 1440 ml 1440 ml Intake Oral 440 ml 440 ml IV Total 1250 ml 1250 ml Output Urine Total 250 ml 250 ml Exam General: Morbidly obese woman in no acute distress HEENT: sclerae anicteric, oral mucosa moist Neck: No nodes difficult to assess JVD Chest: clear to auscultation Cardiac: S1S2, no murmur Abdomen: BS normal, non-tender Extremities: No edema Neuro: A&O, cranial nerves symmetric, motor strength 5/5, coordination normal IVs and Medications Medications Reviewed: Medications were reviewed in detail Lab and Diagnostics Result Diagram: 08/23/16 0508/23/16 0540 X-Rays, CTs and MRIs PROCEDURE: CT ANGIO CHEST PULMONARY EMBOLISM ([id number]) IMPRESSION: Bilateral central pulmonary emboli. No significant discrepancy with the central sterile supply technician radiology preliminary report. Dictated by: Yobani Holland M.D. on 08/23/2016 at 8:33 PROCEDURE: US VENOUS LEG DUPLEX BILATERAL IMPRESSION: No deep venous thrombosis in the lower extremities Dictatedy: Yobani Holland M.D. on 08/23/2016 at 10:41 . Cardiac Echo Impressions Echocardiogram Report Name: ELVIA FERGUSON Study Date: 08/23/2016 H Interpretation Summary Normal both left and right ventricle size and function. Mild mitral regurgitation. Mild tricuspid regurgitation. The right ventricular systolic pressure is estimated at 44 mmHg assuming a right atrial pressure of 15 mm Hg. Comparison is made with the echocardiogram of 08-07-2011, the pulmonary artery pressure has increased. . Assessment & Plan # Bilateral lower lobar pulmonary artery emboli, acute, present on admission. CTA 08/22/16 revealed pulmonary emboli in the bilateral lower lobar pulmonary artery branches. Reports recent decreased mobility secondary to shortness of breath, intermittent tobacco use, use of Depo-Provera; denies any family history of autoimmune disorders or clotting disorders; denies any recent surgeries - Heparin drip initiated in ED; switch to therapeutic Lovenox - Saturating well on room air - Continue therapeutic Lovenox plan to bridge with home Lovenox therapy - Explore insurance coverage for [facility] in a.m. # BLLE swelling and pain, acute, present on admission. - No DVT current study # History of suicidal ideation in the setting of severe depression and bipolar disorder, chornic. Presumed stable -No current symptoms; patient is reported to be stable -Mental health evaluation completed 08/07/16 described a severely depressed patient with suicidal thoughts, with plan to overdose, but without intent and contracts for safety. -Per previous documentation, patient had suicide attempt approximately 6 years ago -TRANSMISSION REPAIRER consultation for follow-up has been placed -Resume home psych meds when med rec completed # Atrial fibrillation, likely paroxysmal, chronic. Presumed stable -Continue flecainide -Discuss options for laborer marine terminal anticoagulation #Morbid obesity, chronic. Ongoing -Dietary consultation - Bariatric nursing care # Hypothyroidism, chronic. TSH is normal -Continue home thyroid medication at this time #. Back pain, chronic. Presumed stable -Continue home meds when verified -PT eval for gait stability - DVT: Therapeutic treatment - Diet: Heart healthy - GI: Not indicated - PRN fever/pain/antiemetic/bowel - Code status: FULL CODE Patient status: Due to severity of presenting symptoms, risk of adverse events, and likely course of care, anticipated LOS > 2 midnights; pt admitted as INPT to [facility] GI Prophylaxis: Not indicated VTE Prophylaxis: Other (PE heparin gtt) Resuscitation Status: CPR: Attempt Resuscitation Time spent 40 min Cliff Garrett MD Aug 23, 2016 10:36
--- NOTE | 2016-08-23 10:43 | DRSVH ---
PROCEDURE: US VENOUS LEG DUPLEX BILATERAL INDICATIONS: inc swelling and pain R > L leg TECHNIQUE: Real-time imaging, as well as color and pulse Doppler interrogation, were performed of the deep veins of both legs from the inguinal ligament to the popliteal fossa. COMPARISON: [facility], CT, CT ANGIO CHEST PE, 08/22/2016, 23:37. FINDINGS: The deep veins are normally compressible, and free of intraluminal thrombus. Color and pu lse Doppler demonstrate normal phasic intravascular flow. There is normal augmentation response to d istal compression maneuver. IMPRESSION: No deep venous thrombosis in the lower extremities. Dictated by: Yobani Holland M.D. on 08/23/2016 at 10:41 Approved by: Yobani Holland M.D. on 08/23/2016 at 10:42
[2016-08-23 11:05] LABS: INR 1.07 ratio
--- NOTE | 2016-08-23 11:18 | PCM.CONPHA ---
Subjective Date of Service: Aug 23, 2016 Shortness of breath Reason for Pharmacy Consult: Anticoagulation Management Objective Vital Signs Date Time Temp Pulse Resp B/P Pulse Ox O2 Delivery O2 Flow Rate FiO2 08/23/16 07:36 37.1 80 24 129/74 99 Room Air 08/23/16 07:30 84 08/23/16 05:31 84 08/23/16 02:12 83 24 135/69 97 Room Air 08/23/16 01:54 87 26 126/60 94 Room Air 08/23/16 00:17 92 24 128/63 95 Room Air 08/23/16 00:01 72 16 96 Room Air 08/22/16 22:44 92 117/65 95 Room Air 08/22/16 21:02 95 112/61 97 Room Air 08/22/16 19:44 36.4 102 20 153/90 95 Room Air Weight (Kilograms): 168.400 Height (Feet): 5 Height (Inches): 5.00 Test 08/22/16 20:21 08/22/16 21:21 08/22/16 21:46 08/23/16 05:40 D-Dimer 1.95mg/L FEU (<0.50) Troponin T 0.010ug/L (0.0-0.011) Hold Rahman Top Tube Received (Received) Hold Urine Received (Received) White Blood Count 13.6th/mm3 (3.8-10.1) Red Blood Count 4.37mil/mm3 (3.90-5.20) Hemoglobin 11.9g/dL (12.0-15.6) Hematocrit 37.5% (35.0-46.0) Mean Corpuscular Volume 85.8fL (81-100) Mean Corpuscular Hemoglobin 27.2pg (27.0-35.0) Mean Corpuscular Hemoglobin Concent 31.7% (32.0-37.0) Red Cell Distribution Width 14.5% (12.3-15.4) Platelet Count 180bil/L (150-400) Neutrophils (%) (Auto) 57.8% (40-74) Lymphocytes (%) (Auto) 30.6% (14-46) Monocytes (%) (Auto) 9.8% (4-12) Eosinophils (%) (Auto) 0.2% (0-5) Basophils (%) (Auto) 0.3% (0-3) Activated Partial Thromboplast Time 143.1sec (22.8-33.0) Sodium Level 145mEq/L (134-144) Potassium Level 3.6mEq/L (3.5-5.2) Chloride Level 112mEq/L (97-108) Carbon Dioxide Level 17mmol/L (18-29) Blood Urea Nitrogen 10mg/dL (6-20) Creatinine 0.65mg/dL (0.57-1.00) Estimat Glomerular Filtration Rate 148mL/min (>59) Glucose Level 132mg/dL (60-99) Calcium Level 8.7mg/dL (8.5-10.1) Phosphorus Level 3.5mg/dL (2.5-4.9) Magnesium Level 2.1mg/dL (1.6-2.6) Total Bilirubin 0.2mg/dL (0.0-1.2) Aspartate Amino Transf (AST/SGOT) 12U/L (0-50) Alanine Aminotransferase (ALT/SGPT) 15U/L (0-32) Alkaline Phosphatase 96U/L (25-150) Total Protein 6.4g/dL (6.4-8.4) Albumin 3.6g/dL (3.4-5.0) Thyroid Stimulating Hormone (TSH) 1.570uIU/mL (0.450-4.500) Free Thyroxine 0.84ng/dL (0.82-1.77) Assessment/Plan Assessment/Plan Warfarin dosing per pharmacy Indication: new onset DVT INR goal: 2-3 Home warfarin dose: not applicable Pertinent information: - Currently anticoagulated on heparin drip. To discontinue 30 min prior to first dose of Lovenox. - To receive Lovenox 160 mg (divided into 2 syringes) Q12hrs. 1 mg/kg for therapeutic anticoagulation with no dose capping for weight. Start with warfarin 10 mg PO once today at 1700. Serial INRs have been ordered x7. Pharmacy to continue to monitor and dose warfarin daily. Thank you, Crystal Loyola Pharmacist Crystal Loyola Aug 23, 2016 11:18
--- NOTE | 2016-08-23 11:48 | DRSVH ---
[facility] [address] [place] [address] Echocardiogram Report Name: ELVIA FERGUSON KStudy Date: 08/23/2016 Height : 65 in Hospital Exam Location: [facility] Weight : 371 lb Gender: Female BSA: 2 .6 m2 : 1980 Age: 36 yrs BP: 12 9/74 mmHg Reason For Study: LEG SWELLING Ordering Physician: HOSPITALIST [facility] Performed By: Kendal Wiseman Referring Physician: DR. MOORE, DR. Megan ZENDEJAS Interpretation Summary Normal both left and right ventricle size and function. Mild mitral regurgitation. Mild tricuspid regurgitation. The right ventricular systolic pressure is estimated at 44 mmHg assuming a right atrial pressure of 15 mm Hg. Comparison is made with the echocardiogram of 08-07-2011, the pulmonary artery pressure has increased. Procedure: A two-dimensional transthoracic echocardiogram with color flow and Doppler was performed. The study quality was technically adequate. Comparison is made with the echocardiogram of 08-07-2011. The patient was in normal sinus rhythm during the exam. Left Ventricle: The left ventricle is normal in size, wall thickness, and systolic function without any focal wall motion abnormalities. The ejection fraction is estimated to be 60-65%. Spectral Doppler of the mitral valve shows a normal E/A wave ratio. Right Ventricle: The right ventricle is normal in size and function. Atria: Both atria are normal in size. There is no Doppler evidence for an atrial septal defect. Mitral Valve: The mitral valve is grossly normal. There is mild mitral regurgitation. Aortic Valve: The aortic valve is not well visualized. The aortic valve opens well. No aortic regurgitation is present. Tricuspid Valve: The tricuspid valve leaflets are thin and pliable. There is mild tricuspid regurgitation. The right ventricular systolic pressure is estimated at 44 mmHg assuming a right atrial pressure of 15 mm Hg. Pulmonic Valve: The pulmonic valve is not well seen, but is grossly normal. There is a trace or physiologic amount of pulmonic regurgitation. Great Vessels: The aortic root is normal size. The dimensions of the ascending aorta are normal. The pulmonary artery is not well visualized, but is probably normal size. The IVC is dilated (diameter is greater than 2.1 cm) and it collapses less than 50% with a sniff. This suggests a high right atrial pressure of 15 mm Hg. Pericardium/ Pleura There is no pericardial effusion. There is no pleural effusion. MMode/2D Measurements & Calculations LVIDd: 5.3 cm LA dimension: 4.0 cm RA long axis LVOT diam: 2.0 cm LVIDs: 3.6 cm AoV Opening FS: 31.5 % LA A2 area: 17.3 cm RA area EPSS: 0.89 cm LA A4 area: 19.4 cm Ao root diam IVSd: 0.80 cm LA length (vol) : 18.4 cm LVPWd: 0.84 cm RA vol Aortic Jxn LA vol: 51.1 ml : 55.7 ml LA vol index RA asc Aorta Diam : 21.7 mm/ RVDd major Ao Arch Diam IVC diam: 2.4 cm : 6.3 cm (distal): 2.6 cm LV amaya. diameter/BSA LV sys. diameter/BSA (cm/m^2): 2.0 (cm/m^2): 1.4 Doppler Measurements & Calculations Ao V2 max MV E max henrik MV E/A: 1.8 TR max henrik : 163.6 cm/sec : 170.0 cm/sec Med Peak E' Henrik : 268.9 cm/sec Ao max PG MV A max henrik TR max P.9 mmHg : 10.7 mmHg : 94.4 cm/sec E/E' med: 16.3 PA V2 max Ao mean PG MV P1/2t Lat Peak E' Henrik : 106.8 cm/sec : 74.7 msec PA mean P.5 mmHg LVOT Max Henrik E/E' lat: 11.0 PA Accel Time : 135.3 cm/sec MVA(VTI): 1.9 cm E/e' average: 13.6 : 0.11 sec MR ERO: 0.27 cm2 Pulm A Revs Dur ROSE MARY(I,D): 2.4 cm sev ratio MV A dur: 0.13 sec MV V2 mean MV P1/2t max henrik Ao V2 mean LV V1 max PG : 106.5 cm/sec : 117.2 cm/sec MV mean PG MVA(P1/2t) Ao V2 VTI: 32.5 cm LV V1 VTI: 25.2 cm : 2.9 cm2 ROSE MARY(V,D): 2.5 cm2 MV V2 VTI MV dec time : 0.25 sec MR flow rate PA V2 mean ROSE MARY indexed to BSA Pulm A Revs Dur - MV : 135.5 cm3/sec : 75.8 cm/sec (cm^2/m^2): 0.92 A Dur: -0.02 msec MR PISA radius Electronically signed by: Vicenta Whiting on Reading Physician:08/23/2016 11:47 AM
--- NOTE | 2016-08-23 13:39 | NUR ---
Evaluation completed. Please go to "Notes" then click on "Assessments and Notes" (bottom left corner of screen). Then select appropriate discipline tab on top of screen.
[2016-08-23] MEDS ORDERED: ALBU2.5V4 INHALATION (13:59)
[2016-08-23] MEDS ORDERED: GABA600T2 PO (13:59)
[2016-08-23] MEDS ORDERED: SOMA350 PO (14:11)
[2016-08-23] MEDS ORDERED: RISP2TAB3 PO (14:12)
[2016-08-23] MEDS ORDERED: RISP1TAB3 PO (14:12)
[2016-08-23] MEDS ORDERED: ZONI100C6 PO (14:18)
[2016-08-23] MEDS: oxyCODONE-Acetamin 5-325 mg Tablet PO PRN (15:39)
[2016-08-23] MEDS ORDERED: hydrOXYzine Pamoate 25 mg Capsule PO PRN (15:50)
[2016-08-23] MEDS: Verapamil SR 240 mg ER12 Tablet PO SCH (17:49)
--- NOTE | 2016-08-23 17:54 | NUR ---
Resp/Pain/Activity Patient a/o x 3, c/o back and right leg pain, meds x1 given with good effect. Patient oob to bathroom with sba humberto fair. Dyspnea at rest and with activity. Patient taking diet well. VSS, tele SR. Echo and venous doppler done this shift. Family at bedside to assist with ADL's. Patient requesting home meds be restarted, paged and meds ordered. Heparin gtt @ 14 unit/kg/hr. Next PTT at 1830. Coumadin info, Lovenox info and subcut injection given to patient. Verbal teaching started on Coumadin and first dose given. Will cont poc.
[2016-08-23] MEDS: diphenhydrAMINE 25 mg Capsule PO PRN (20:07)
[2016-08-23] MEDS: ENOXAPARIN SUBQ SCH ×2 (20:13)
[2016-08-23] MEDS ORDERED: risperiDONE 2 mg Tablet PO SCH (21:00)
[2016-08-24] MEDS: diphenhydrAMINE 25 mg Capsule PO PRN ×2 (02:00→13:36)
[2016-08-24] MEDS: oxyCODONE-Acetamin 5-325 mg Tablet PO PRN ×2 (02:00→13:36)
[2016-08-24 03:14] VITALS: BP 128/71; PULSE 73; RESP 20; O2SAT 96
[2016-08-24 03:31] VITALS: PULSE 70
--- NOTE | 2016-08-24 04:39 | NUR ---
Lovenox teaching/ pain/ respiratory: Heparin gtt d/c 30 mins prior to Lovenox administration. Reviewed with pt medication, Pt states she already received a information packet on medication. Demonstrated to pt and how to administer Lovenox. Pt c/o 11/12 generalized back pain. PRN oxycodone given in addition to Benadryl per pt request. Pt sleeping throughout majority of the night VSS. Sp02 maintained on RA( monitored via OUTPATIENT CLERK)
[2016-08-24 06:46] LABS: INR 1.03 ratio
[2016-08-24 08:00] VITALS: PULSE 69
[2016-08-24 08:44] VITALS: BP 119/68; PULSE 71; RESP 18; O2SAT 98
[2016-08-24] MEDS: Verapamil SR 240 mg ER12 Tablet PO SCH (08:49)
[2016-08-24] MEDS: Pantoprazole 20 mg ER24 Tablet PO SCH (08:49)
[2016-08-24] MEDS: ENOXAPARIN SUBQ SCH ×2 (08:51)
--- NOTE | 2016-08-24 11:08 | NUR ---
Social Work: Discharge D: Pt discussed in am rounds. Clinically pt is ready for discharge pending the status of her insurance coverage for an anticoagulant. provided FABRICATION DEPARTMENT SUPERVISOR with three prescriptions to run for coverage (Lovenoz, Eliquis, and Pradaxa). FABRICATION DEPARTMENT SUPERVISOR faxed these to the pt's preferred pharmacy, [facility] in [place] along with her insurance information/facesheet. FABRICATION DEPARTMENT SUPERVISOR spoke with [facility] who ran these prescriptions; the pt has no copay for any of them. FABRICATION DEPARTMENT SUPERVISOR updated MD to this. A: Pt who is I at baseline. P: Anticipate pt to discharge home with spouse to transport once orders are finalized. COY Seo
[2016-08-24] MEDS ORDERED: APIX5TAB PO (12:58)
--- NOTE | 2016-08-24 13:06 | PCM.DIMED ---
Discharge Instructions Date of Service Aug 24, 2016 Dates of Hospitalization Aug 23, 2016 at 00:49 Discharge Diagnosis Discharge Diagnosis bilateral pulmonary embolism, unprovoked; acute dyspnea; leg swelling Medication Instructions The blood thinning medicine apixaban (Eliquis) has been transmitted to your pharmacy. Diet No restrictions Activity Other (as tolerated while shortness of breath improves gradually) Patient Instructions You have had a history of some bleeding in her stools, and are now on a blood thinning medicine. Signs of GI bleeding including jet black colored stools as well as red blood with bowel movements. If you experience black stool or copious red blood, you should be evaluated in the emergency room. We recommend that you remain on the blood thinner for at least 3 months before an interruption to proceed with colonoscopy, if possible. The interruption of blood thinner should be as brief as possible. You should contact the office of Dr. Vilchis at [facility] and inform them of your new medication, and discus a possible delay in your planned colonoscopy. Follow-up plan Home Follow-up Provider: Tre Baltazar MD Follow-up with PCP in: 1 week (posthospitalization follow-up appointment) Cliff Garrett MD Aug 24, 2016 13:06
[2016-08-24 13:15] VITALS: BP 154/70; PULSE 82; RESP 17; O2SAT 98
--- NOTE | 2016-08-24 15:29 | NUR ---
Discharge Patient left via IMCU NURSE in a wheelchair and in a stable condition. IV DC'd intact, tele removed, all personal belongings with patient. New medication of Eliquis discussed -- 2 tablets, BID for one week followed by one tablet BID, patient verbalized understanding. Patient received lovenox sub Q this AM, consulted pharmacy -- patient needs to only take evening dose (2 tablets) and start the two tablets BID tomorrow -- patient and verbalized understanding. All other medications continued with next due doses written and discussed -- patient and verbalized understanding. Follow up with PCP scheduled for 09/07.
--- NOTE | 2016-08-25 18:39 | PCM.DC.MED ---
Discharge Summary Date of Service Aug 24, 2016 Dates of Hospitalization Date of Hospital Admission Aug 23, 2016 at 00:49 Date of Discharge: Aug 24, 2016 Providers: Admitting Physician: Indy Borjas DO Primary Care Physician: Tre Baltazar MD Attending Physician: Indy Borjas DO Diagnosis at Time of Discharge Diagnosis at Time of Discharge bilateral pulmonary embolism, unprovoked; acute dyspnea; leg swelling Procedures XRay, CTs & MRIs PROCEDURE: CT ANGIO CHEST PULMONARY EMBOLISM ([id number]) IMPRESSION: Bilateral central pulmonary emboli. No significant discrepancy with the patternmaker apprentice wood radiology preliminary report. Dictated by: Yobani Holland M.D. on 08/23/2016 at 8:33 PROCEDURE: US VENOUS LEG DUPLEX BILATERAL IMPRESSION: No deep venous thrombosis in the lower extremities Dictatedy: Yobani Holland M.D. on 08/23/2016 at 10:41 . Cardiac Echo Impression Echocardiogram Report Name: CYNTHIA FERGUSON Study Date: 0 08/23/2016 H Interpretation Summary Normal both left and right ventricle size and function. Mild mitral regurgitation. Mild tricuspid regurgitation. The right ventricular systolic pressure is estimated at 44 mmHg assuming a right atrial pressure of 15 mm Hg. Comparison is made with the echocardiogram of 08-07-2011, the pulmonary artery pressure has increased. . Brief History History of Present Illness (per admission note): Mrs. Cynthia Freguson is a 36 year old woman with a complex medication history of numerous diagnoses including atrial fibrillation not on long-term anticoagulation, fibromyalgia, bipolar depression with history of suicidal ideation and attempts via overdose, history of tobacco use, hypothyroidism, HTN , and morbid obesity, that presented to [facility] with a one day history of increasing shortness of breath that had been present over recent week leading to admission, with associated dizziness, and lightheadedness. She was admitted for evaluation and treatment of bilateral pulmonary emboli of bilateral lower lobes. Hospital day one. She was seen in the ED 08/21 for suspected asthma exacerbation, with sx of SOB , and her sx were reported to be improved following steroid administration and nebulizer treatments. She reports she returned home, and throughout the day of admission, she became progressively short of breath, and unable to ambulate without developing severe dyspnea. Associated symptoms include bilateral lower extremity swelling, with the right leg more so than the left, but she is unsure if any erythema had developed she is unable to visualize her legs. She reports extreme difficulty ambulating even short distances as little as 5 feet secondary to her acute respiratory failure. She shares that she has been short of breath over the most recent month, but has been able to function without difficulty until the day prior to and the day of admission. . Hospital Course # Bilateral lower lobar pulmonary artery emboli, acute, present on admission. CTA 08/22/16 revealed pulmonary emboli in the bilateral lower lobar pulmonary artery branches. Reports recent decreased mobility secondary to shortness of breath, intermittent tobacco use, use of Depo-Provera; denies any family history of autoimmune disorders or clotting disorders; denies any recent surgeries. Heparin drip initiated in ED; switch to therapeutic Lovenox. No evidence of hypoxia or right heart strain. She has exertional dyspnea, likely related to pulmonary embolism. - Insurance coverage for apixaban (Eliquis) - does not require 5 days of antithrombin therapy - okay to start home # BLLE swelling and pain, acute, present on admission. - No DVT on current study # History of suicidal ideation in the setting of severe depression and bipolar disorder, chornic. Presumed stable -No current symptoms; patient is reported to be stable # Atrial fibrillation, likely paroxysmal, chronic. Presumed stable. -Continue flecainide - [id number] has now increased to 4 #Morbid obesity, chronic. Ongoing # Hypothyroidism, chronic. TSH is normal -Continue home thyroid medication at this time #. Back pain, chronic. Presumed stable -Continue home meds . . Exam Vital Signs (Last) Date Time Temp Pulse Resp B/P Pulse Ox O2 Delivery O2 Flow Rate FiO2 08/24/16 08:44 36.8 71 18 119/68 98 Room Air Exam General: Morbidly obese woman in no acute distress HEENT: sclerae anicteric, oral mucosa moist Neck: No nodes difficult to assess JVD Chest: clear to auscultation Cardiac: S1S2, no murmur Abdomen: BS normal, non-tender Extremities: No edema Neuro: A&O, cranial nerves symmetric, motor strength 5/5, coordination normal Test 08/22/16 20:21 08/22/16 21:21 08/22/16 21:46 08/23/16 05:40 D-Dimer 1.95mg/L FEU (<0.50) Troponin T 0.010ug/L (0.0-0.011) Hold Rahman Top Tube Received (Received) Hold Urine Received (Received) White Blood Count 13.6th/mm3 (3.8-10.1) Red Blood Count 4.37mil/mm3 (3.90-5.20) Mean Corpuscular Volume 85.8fL (81-100) Mean Corpuscular Hemoglobin 27.2pg (27.0-35.0) Mean Corpuscular Hemoglobin Concent 31.7% (32.0-37.0) Red Cell Distribution Width 14.5% (12.3-15.4) Platelet Count 180bil/L (150-400) Neutrophils (%) (Auto) 57.8% (40-74) Lymphocytes (%) (Auto) 30.6% (14-46) Monocytes (%) (Auto) 9.8% (4-12) Eosinophils (%) (Auto) 0.2% (0-5) Basophils (%) (Auto) 0.3% (0-3) Sodium Level 145mEq/L (134-144) Potassium Level 3.6mEq/L (3.5-5.2) Chloride Level 112mEq/L (97-108) Carbon Dioxide Level 17mmol/L (18-29) Blood Urea Nitrogen 10mg/dL (6-20) Creatinine 0.65mg/dL (0.57-1.00) Estimat Glomerular Filtration Rate 148mL/min (>59) Glucose Level 132mg/dL (60-99) Calcium Level 8.7mg/dL (8.5-10.1) Phosphorus Level 3.5mg/dL (2.5-4.9) Magnesium Level 2.1mg/dL (1.6-2.6) Total Bilirubin 0.2mg/dL (0.0-1.2) Aspartate Amino Transf (AST/SGOT) 12U/L (0-50) Alanine Aminotransferase (ALT/SGPT) 15U/L (0-32) Alkaline Phosphatase 96U/L (25-150) Total Protein 6.4g/dL (6.4-8.4) Albumin 3.6g/dL (3.4-5.0) Thyroid Stimulating Hormone (TSH) 1.570uIU/mL (0.450-4.500) Free Thyroxine 0.84ng/dL (0.82-1.77) Test 08/24/16 05:45 08/24/16 12:05 Hemoglobin 12.7g/dL (12.0-15.6) Hematocrit 40.0% (35.0-46.0) Prothrombin Time 11.0sec (8.1-12.5) Prothromb Time International Ratio 1.03ratio Discharge Medications Discharge Medications Albuterol HFA (Proair HFA) 8.5 Gm Hfa.aer.ad 2 PUFFS INHALATION Q4H (Reported) Aspirin (Aspirin) 81 Mg Tablet 81 MG PO DAILY (Reported) Baclofen (Baclofen) 10 Mg Tablet 10-20 MG PO TID (Reported) Flecainide Acetate (Flecainide Acetate) 100 Mg Tablet 100 MG PO Q12H (Reported) Gabapentin (Gabapentin) 600 Mg Tablet 1,200 MG PO TID (Reported) Hydrochlorothiazide (Hydrochlorothiazide) 25 Mg Tablet 25 MG PO DAILY (Reported ) Hydroxyzine HCl (HydrOXYzine Hcl) 50 Mg Tablet 50 MG PO HS (Reported) Levothyroxine Sodium (Levo-T) 88 Mcg Tablet 88 MCG PO DAILY (Reported) Lurasidone (Latuda) 80 Mg Tablet 80 MG PO HS (Reported) Medroxyprogesterone Acetate (Depo-Provera) 150 Mg/1 Ml Syringe 150 MG IM [id number] (Reported) Nystatin (Nystatin) 1 Each Powder.ea. 1 APPLIC TOP BID (Reported) Pantoprazole DR (Pantoprazole DR) 20 Mg Tablet.dr 20 MG PO DAILY (Reported) Potassium Chloride (Potassium Chloride) 20 Meq Tab.er.prt 20 MEQ PO BID ( Reported) TAKE WITH FOOD Prednisone (PredniSONE) 20 Mg Tablet 60 MG PO DAILY (Reported) take x5 days Topiramate (Topiramate) 200 Mg Tablet 200 MG PO BID (Reported) Verapamil ER (Verapamil ER) 240 Mg Tber 240 MG PO DAILY (Reported) As needed Albuterol Neb Soln (Albuterol Neb Soln) 2.5 Mg/3 Ml Vial.neb 2.5 MG INHALATION Q4H PRN PRN For Wheezing (Reported) Apixaban (Eliquis) 5 Mg Tablet 5 MG PO DIRECTED PRN PRN pulmonary embolism 2 pills twice per day for 7 days, then 1 pill twice per day Prescribed by: RICARDO BECKFORD MD Clonazepam (Clonazepam) 1 Mg Tablet 1-2 MG PO DAILY PRN PRN For Anxiety or Agitation (Reported) Dihydroergotamine Mesylate (Migranal) 1 Ml Sweet Briar.pump 1 ML NS q15 mins x2 BID PRN PRN mirgane (Reported) Naproxen Sodium (Aleve) 220 Mg Capsule 220 MG PO PRN "as needed" (Reported) Ondansetron (Ondansetron) 8 Mg Tablet 8 MG PO TID PRN PRN For Nausea (Reported) Sumatriptan Succinate (Sumatriptan Succinate) 100 Mg Tablet 100 MG PO DIRECTED PRN PRN migrane (Reported) one tablet with onset of migrane, may repeat in 2 hrs. max dose 2 tabs in 24hrs diphenhydrAMINE HCl (Benadryl) 25 Mg Capsule 25-50 MG PO PRN "as needed" ( Reported) hydrOXYzine Hcl (HydrOXYzine Hcl) 25 Mg Tablet 25 MG PO Q6H PRN PRN For Anxiety or Agitation (Reported) oxyCODONE-Acetaminophen 5-325 mg (oxyCODONE-Acetaminophen 5-325 mg) 1 Each Tablet 1 TAB PO Q4H PRN PRN For Pain (Reported) Miscellaneous Medications ([cannabis oil]) 10 MG (Reported) Additional med instructions The blood thinning medicine apixaban (Eliquis) has been transmitted to your pharmacy. Followup Plan Follow-up plan Home Discharge Diet: No restrictions Discharge Activity: Other (as tolerated while shortness of breath improves gradually) Patient Instructions You have had a history of some bleeding in her stools, and are now on a blood thinning medicine. Signs of GI bleeding including jet black colored stools as well as red blood with bowel movements. If you experience black stool or copious red blood, you should be evaluated in the emergency room. We recommend that you remain on the blood thinner for at least 3 months before an interruption to proceed with colonoscopy, if possible. The interruption of blood thinner should be as brief as possible. You should contact the office of Dr. Vilchis at [facility] and inform them of your new medication, and discus a possible delay in your planned colonoscopy. Follow-up Provider: Tre Baltazar MD Follow-up with PCP in: 1 week (posthospitalization follow-up appointment) Time spent 35 minutes copies to: Tre Baltazar MD, Jeffrey W MD Aug 24, 2016 13:07
[2016-10-24] MEDS ORDERED: WARF10TA PO (11:23)
[2016-10-24] MEDS ORDERED: WARF5TAB PO (11:23)
== END 2016-08-24 15:35 | disposition home or self-care (01) | DRG 176 ==
LOC: SED 19:34 → PCC 08-23 00:49
PROVIDERS: ADMIT Internal Medicine; ATTEND Internal Medicine
DX: I26.99 Other pulmonary embolism without acute cor pulmonale (principal); Z68.44 Body mass index [BMI] 60.0-69.9, adult; J45.909 Unspecified asthma, uncomplicated; I10 Essential (primary) hypertension; E03.9 Hypothyroidism, unspecified; I48.0 Paroxysmal atrial fibrillation; F31.9 Bipolar disorder, unspecified; M79.7 Fibromyalgia; G89.29 Other chronic pain; E66.01 Morbid (severe) obesity due to excess calories; Z87.891 Personal history of nicotine dependence; Z91.5 Personal history of self-harm; Z79.51 Long term (current) use of inhaled steroids; Z79.82 Long term (current) use of aspirin

== ENCOUNTER 2016-08-28 14:00 | Emergency (ER) | payer OTHER ==
[~2016-08-28 14:00] MED LIST changes: -ALBU18HF INH; +APIX5TAB PO; +ASPI-973 PO; +BACL10TA PO; -BENZ-12 PO; -CEPH500C PO; -DILT60TA PO; +DIPH25CA6 PO; +GABA600T2 PO; +HYDR50TA76 PO; -HYOS0.1281 SL; -IBUP800T28 PO; +KLO1T PO; -LEVO88TA4 PO; +LEVO88TA63 PO; -LORA-303 PO; -LURA60TA PO; +LURA80TA3 PO; +MEDR150D9 IM; -MULT-1018 PO; +NAPR220C11 PO; +NYST1POW23 TOP; -NYST1POW23 TOPICAL; +ONDA-54 PO; +PANT20TA2 PO; -SOMA350 PO; +SUMA100T2 PO; +TOPI200T7 PO; -VERA180T5 PO; +VERA240T97 PO; +cannabis oil
[2016-08-28 14:03] VITALS: BP 147/74; PULSE 84; RESP 24; O2SAT 95
[2016-08-28 15:22] LABS: BASOPHILS % (AUTO) 0.5 % (0-3); MONOCYTES % (AUTO) 12.1 % (4-12); Mean Corpuscular Volume 83.8 fL (81-100); Platelet Count 187 bil/L (150-400)
--- NOTE | 2016-08-28 15:41 | ED.REPORT ---
HPI- Female Date of Service Aug 28, 2016 ED Provider: Marcello Nicholas MD Patient is a 36-year-old woman with, given medical history, most recently discharged from the hospital for treatment of bilateral pulmonary embolisms. She was heparinized while she was here, transferred onto [facility]. She was discharged 4 days ago, and states today she noticed kelly blood in her urine, and was instructed by her primary care doctor go the ER. She has had sustained lightheadedness and dizziness since her presentation for pulmonary emboli, along with dyspnea, no chest pain, no nausea vomiting or diarrhea, states she is not straining to go to the bathroom, denies that she is having periods and states she is on Depo-Provera. She conveys that she feels like she is going to pass out whenever she bends forward, and due to her abdominal girth has to bend over in order to wipe herself after having bowel movement or urinating. She was having blood on toilet paper prior to the pulmonary embolism events and was scheduled to have a colonoscopy performed, which is subsequently been postponed. She denies any black stools or clots. She additionally mentions that she has been having a cough, and this morning she coughed up a black ball of something that was foul tasting. At home she states she notices that her oxygen saturation decreases particularly when she is walking. On triage they ambulated her while taking her pulse ox and saw that it dropped down to 88%. Nursing Notes Stated Complaint: blood in urine Chief Complaint: General Complaint Nursing Notes Reviewed: Yes Allergies: Coded Allergies: azithromycin (Verified Allergy, Severe, causes a-fib, 08/28/16) White (Verified Allergy, Intermediate, Rash, 08/28/16) citric acid (Verified Allergy, Intermediate, Rash, 08/28/16) hydrocodone bitartrate (Verified Allergy, Mild, GI, 08/28/16) Scheduled Albuterol HFA (Proair HFA) 8.5 Gm Hfa.aer.ad 2 PUFFS INHALATION Q4H Aspirin (Aspirin) 81 Mg Tablet 81 MG PO DAILY Baclofen (Baclofen) 10 Mg Tablet 10-20 MG PO TID Flecainide Acetate (Flecainide Acetate) 100 Mg Tablet 100 MG PO Q12H Gabapentin (Gabapentin) 600 Mg Tablet 1,200 MG PO TID Hydrochlorothiazide (Hydrochlorothiazide) 25 Mg Tablet 25 MG PO DAILY Hydroxyzine HCl (HydrOXYzine Hcl) 50 Mg Tablet 50 MG PO HS Levothyroxine Sodium (Levo-T) 88 Mcg Tablet 88 MCG PO DAILY Lurasidone (Latuda) 80 Mg Tablet 80 MG PO HS Medroxyprogesterone Acetate (Depo-Provera) 150 Mg/1 Ml Syringe 150 MG IM [id number] Nystatin (Nystatin) 1 Each Powder.ea. 1 APPLIC TOP BID Pantoprazole DR (Pantoprazole DR) 20 Mg Tablet.dr 20 MG PO DAILY Potassium Chloride (Potassium Chloride) 20 Meq Tab.er.prt 20 MEQ PO BID TAKE WITH FOOD Topiramate (Topiramate) 200 Mg Tablet 200 MG PO BID Verapamil ER (Verapamil ER) 240 Mg Tber 240 MG PO DAILY Scheduled PRN Albuterol Neb Soln (Albuterol Neb Soln) 2.5 Mg/3 Ml Vial.neb 2.5 MG INHALATION Q4H PRN PRN For Wheezing Apixaban (Eliquis) 5 Mg Tablet 5 MG PO DIRECTED PRN PRN pulmonary embolism 2 pills twice per day for 7 days, then 1 pill twice per day Clonazepam (Clonazepam) 1 Mg Tablet 1-2 MG PO DAILY PRN PRN For Anxiety or Agitation Dihydroergotamine Mesylate (Migranal) 1 Ml [place].pump 1 ML NS q15 mins x2 BID PRN PRN mirgane Naproxen Sodium (Aleve) 220 Mg Capsule 220 MG PO PRN "as needed" Ondansetron (Ondansetron) 8 Mg Tablet 8 MG PO TID PRN PRN For Nausea Sumatriptan Succinate (Sumatriptan Succinate) 100 Mg Tablet 100 MG PO DIRECTED PRN PRN migrane one tablet with onset of migrane, may repeat in 2 hrs. max dose 2 tabs in 24hrs diphenhydrAMINE HCl (Benadryl) 25 Mg Capsule 25-50 MG PO PRN "as needed" hydrOXYzine Hcl (HydrOXYzine Hcl) 25 Mg Tablet 25 MG PO Q6H PRN PRN For Anxiety or Agitation oxyCODONE-Acetaminophen 5-325 mg (oxyCODONE-Acetaminophen 5-325 mg) 1 Each Tablet 1 TAB PO Q4H PRN PRN For Pain Miscellaneous Medications ([cannabis oil]) 10 MG General Time Seen by MD: 14:47 Chief Complaint Blood in urine Sudden in Onset?: Yes Similar Sx Previous: No Past Medical History Past Medical History Fibromyalgia Bipolar Depression Prior psychiatric admissions for suicidal ideations and prior medication overdose Anxiety Kidney Stones History of esophageal stricture requiring dilation 10+ years ago Chronic back pain Hypothyroid Asthma Paroxysmal Afib 05/2013 - on daily flecainide, not anticoagulated History of SVT May 2010 BL PE 08/2016 Reports: Cancer, Hypertension Past Surgical History Abscess removed from uterus Adenoidectomy Ear tubes Reports: , Cholecystectomy, Tonsillectomy Family History History of heart disease (grandfather, quadruple bypass) Smoking History Former Smoker Social History Alcohol Use: Denies alcohol use Drug Use: In recovery Other Social History: Good social support, , Local resident Ambulatory Status Independent Review of Systems Complete sys rev & neg: except as marked. Physical Exam General: Laying in bed, diaphoretic. Morbidly obese. HEENT: Normocephalic, atraumatic, EOMI grossly, mucous membranes moist, halitosis. Cardiovascular: Distant. Regular rate and rhythm, no clicks murmurs rubs, peripheral pulses 2/4 equal bilaterally Pulmonary: Distant. Clear to auscultation bilaterally, no W/R/R. Abdominal: Soft to palpation, Extremities: No edema appreciated. No tenderness, asymmetry. Neuro: Neurologically grossly intact, strength is equal bilaterally upper and lower extremities. MSK: Gait is normal, able to move extremities on their own volition, strength 5 out of 5 equal bilaterally to upper and lower extremities. /GI: Perianal area is unremarkable, do not appreciate any external hemorrhoids , there is no palpable internal hemorrhoids, no asymmetry, no masses on digital rectal exam, Hemoccult had trace blood. Did not appreciate any stridor or residual blood from the vulva. Initial Vital Signs Vital Signs (First) Date Time Temp Pulse Resp B/P Pulse Ox O2 Delivery O2 Flow Rate FiO2 08/28/16 14:03 36.6 84 24 147/74 95 Room Air Initial VS: Reviewed Interpretation & Diagnostics Lab Results Interpretation Result Diagram: 08/28/16 1515 08/28/16 1515 Test 08/28/16 15:15 08/28/16 15:39 White Blood Count 10.1th/mm3 (3.8-10.1) Red Blood Count 4.70mil/mm3 (3.90-5.20) Hemoglobin 12.7g/dL (12.0-15.6) Hematocrit 39.4% (35.0-46.0) Mean Corpuscular Volume 83.8fL (81-100) Mean Corpuscular Hemoglobin 27.0pg (27.0-35.0) Mean Corpuscular Hemoglobin Concent 32.2% (32.0-37.0) Red Cell Distribution Width 14.6% (12.3-15.4) Platelet Count 187bil/L (150-400) Neutrophils (%) (Auto) 56.0% (40-74) Lymphocytes (%) (Auto) 26.3% (14-46) Monocytes (%) (Auto) 12.1% (4-12) Eosinophils (%) (Auto) 4.0% (0-5) Basophils (%) (Auto) 0.5% (0-3) Prothrombin Time 10.7sec (8.1-12.5) Prothromb Time International Ratio 1.00ratio Sodium Level 140mEq/L (134-144) Potassium Level 3.3mEq/L (3.5-5.2) Chloride Level 107mEq/L (97-108) Carbon Dioxide Level 18mmol/L (18-29) Blood Urea Nitrogen 12mg/dL (6-20) Creatinine 0.81mg/dL (0.57-1.00) Estimat Glomerular Filtration Rate 115mL/min (>59) Glucose Level 108mg/dL (60-99) Calcium Level 9.3mg/dL (8.5-10.1) Total Bilirubin 0.2mg/dL (0.0-1.2) Aspartate Amino Transf (AST/SGOT) 16U/L (0-50) Alanine Aminotransferase (ALT/SGPT) 43U/L (0-32) Alkaline Phosphatase 119U/L (25-150) Total Protein 6.7g/dL (6.4-8.4) Albumin 4.1g/dL (3.4-5.0) Hold Rahman Top Tube Received (Received) Urine Color Yellow (YELLOW) Urine Appearance Slightly cloudy Urine pH 6.5 (5.0-8.0) Urine Specific [place] 1.025 (1.003-1.035) Urine Protein Negativemg/dL (NEG,TRACE) Urine Glucose (UA) Negativemg/dL (NEGATIVE) Urine Ketones Negativemg/dL (NEGATIVE) Urine Occult Blood Large (NEGATIVE) Urine Nitrite Negative (NEGATIVE) Urine Bilirubin Negative (NEGATIVE) Urine Urobilinogen Normalmg/dL (NORMAL) Urine Leukocyte Esterase Negative (NEGATIVE) Urine RBC Packed/hpf (0-2) Urine WBC 0-5/hpf (0-5) Urine Epithelial Cells Few/hpf (NONE-MOD) Urine Crystals None seen (NONE SEEN) Urine Bacteria Few/hpf (NONE-FEW) Urine Hyaline Casts None/lpf (NONE) Urine Granular Casts None seen (NONE SEEN) Urine Waxy Casts None seen (NONE SEEN) Urine Red Blood Cell Casts None seen (NONE SEEN) Urine White Blood Cell Casts None seen (NONE SEEN) Urine Mucus None seen (None Seen) Urine Trichomonas None seen (NONE SEEN) Urine Yeast None (NONE SEEN) Urinalysis Comment None Urine Culture Reflexed Not indicated Lab Results Interpretation: Mildly low potassium Elevated blood glucose Hematuria No urinary tract infection Re-Eval/Medical Decision Med Decision/Clinical Course Patient was evaluated for complaint of hematuria, and dyspnea on exertion. Evaluation did not show kelly blood on digital rectal exam, and urine sample was yellow, and showed packed red blood cells, with no signs of infection. Respiratory therapist ambulated the patient around the emergency department, when patient felt she was out of breath "heaviness in my chest, want to sit down " she was at 93% on room air. Discuss with her the risk and benefit of being on the blood thinner. Having blood in the urine is not uncommon, however profusely bleeding from her rectum or bright red blood in her urine is abnormal , not expected, and she should return to the emergency department. She was advised to follow-up with her primary care doctor regarding her recent hospitalization and today's ER visit. Interpretation was discussed with patient , as well as the plan, red flag symptoms and return precautions. Patient stated understanding and agreement. Discharge & Departure Impression: Primary Impression: Hematuria Additional Impression: Dyspnea Dyspnea type: dyspnea on exertion Qualified Code: R06.09 - Other forms of dyspnea Disposition: Home Discharge Condition All VS Reviewed: Yes Condition: Stable Patient Instructions: Acute Hematuria (ED), Pulmonary Embolism (ED) Additional Instructions: Thank you for entrusting us with your care. Today we evaluated for your complaint of blood in your urine. Indeed you are correct there is blood in your urine, however on evaluation it did not appear that you are losing substantial amounts of blood through urine. This is not to be unexpected while on a blood thinner, and it is not uncommon. In regards to your shortness of breath, on evaluation with our respiratory specialist that showed that you maintain your oxygen saturations while walking around our emergency department. I encourage you to keep track of your oxygenation at home , if you do not already have a pulse oximetry device, they can be picked up at just about any drugstore or department store. If your blood oxygen saturation continuously drops below 90%, please contact your doctor, or come to the emergency department if you are very short of breath, or feeling as though you are lightheaded and going to pass out, more so than you are to stating. If you have abrupt worsening shortness of breath, chest pain, worsening lightheadedness and dizziness and feeling as though you are about to pass out, please call 911 or return to the emergency department. Please continue taking Eliquis. The blood clots in your lungs need to continuously be treated for them to resolve and be absorbed properly. This is the risk/balance between being on anticoagulation and having a little blood in your urine and continuing to have blood clots in your lungs. Please follow-up with your primary care doctor in the coming week in regards to your recent hospitalization and this ER visit. Referrals: Tre Baltazar MD (PCP) Attending Statement The patient was seen and examined together with Dr. Street on 08/28/16 and I agree with the history, exam and plan as outlined in the note above. copies to: Tre Baltazar MD, Noah M DO Aug 28, 2016 15:41 Marcello Nicholas MD Aug 28, 2016 18:06
[2016-08-28 15:51] LABS: COLOR,URINE YELLOW (YELLOW)
[2016-08-28 15:52] LABS: APPEARANCE,URINE SLIGHTLY CLOUDY (CLEAR,HAZY); OCCULT BLOOD,URINE LARGE (NEGATIVE); PH,URINE 6.5 (5.0-8.0); UROBILINOGEN,URINE NORMAL (NORMAL)
[2016-08-28 16:46] VITALS: BP 142/68; PULSE 89; RESP 22; O2SAT 97
[2016-08-28 16:48] VITALS: BP 142/68; PULSE 89; RESP 22; O2SAT 97
[2016-10-24] MEDS ORDERED: WARF10TA PO (11:23)
[2016-10-24] MEDS ORDERED: WARF5TAB PO (11:23)
== END 2016-08-28 16:50 | disposition home or self-care (01) ==
LOC: SED 14:00
DX: R31.9 Hematuria, unspecified (principal); R06.09 Other forms of dyspnea; Z79.82 Long term (current) use of aspirin; I10 Essential (primary) hypertension; J45.909 Unspecified asthma, uncomplicated; E03.9 Hypothyroidism, unspecified; G89.29 Other chronic pain; Z87.891 Personal history of nicotine dependence; Z88.5 Allergy status to narcotic agent; Z91.018 Allergy to other foods; Z88.1 Allergy status to other antibiotic agents

== ENCOUNTER 2016-09-23 14:53 | Emergency (ER) | payer OTHER ==
[~2016-09-23] VITALS: Ht 165.1 cm; Wt 166.4 kg
[~2016-09-23 14:53] MED LIST changes: -PRE20 PO
[2016-09-23 14:59] VITALS: BP 146/80; PULSE 81; RESP 17; O2SAT 97
--- NOTE | 2016-09-23 15:59 | ED.REPORT ---
HPI-Extremity Problem Lower Date of Service September 23, 2016 ED Provider: Daniele Stoner MD Pt is a 36 year old female with a hx of PE on Eliquis presenting to the ED complaining of left leg pain onset this morning at rest. Associated symptoms include pain, burning and swelling from the foot to the knee. Denies other symptoms. She reports that this pain feels the same as it did when she had a PE. Pt has been elevating the foot, and denies any injury. She reports that she may have missed her Eliquis medication last night. Nursing Notes Stated Complaint: LEFT LEG PAIN Chief Complaint: Extremity Trauma Nursing Notes Reviewed: Yes Allergies: Coded Allergies: azithromycin (Verified Allergy, Severe, causes a-fib, 09/23/16) White (Verified Allergy, Intermediate, Rash, 09/23/16) citric acid (Verified Allergy, Intermediate, Rash, 09/23/16) hydrocodone bitartrate (Verified Allergy, Mild, GI, 09/23/16) Scheduled Albuterol HFA (Proair HFA) 8.5 Gm Hfa.aer.ad 2 PUFFS INHALATION Q4H Aspirin (Aspirin) 81 Mg Tablet 81 MG PO DAILY Baclofen (Baclofen) 10 Mg Tablet 10-20 MG PO TID Flecainide Acetate (Flecainide Acetate) 100 Mg Tablet 100 MG PO Q12H Gabapentin (Gabapentin) 600 Mg Tablet 1,200 MG PO TID Hydrochlorothiazide (Hydrochlorothiazide) 25 Mg Tablet 25 MG PO DAILY Hydroxyzine HCl (HydrOXYzine Hcl) 50 Mg Tablet 50 MG PO HS Levothyroxine Sodium (Levo-T) 88 Mcg Tablet 88 MCG PO DAILY Lurasidone (Latuda) 80 Mg Tablet 80 MG PO HS Medroxyprogesterone Acetate (Depo-Provera) 150 Mg/1 Ml Syringe 150 MG IM [id number] Nystatin (Nystatin) 1 Each Powder.ea. 1 APPLIC TOP BID Pantoprazole DR (Pantoprazole DR) 20 Mg Tablet.dr 20 MG PO DAILY Potassium Chloride (Potassium Chloride) 20 Meq Tab.er.prt 20 MEQ PO BID TAKE WITH FOOD Topiramate (Topiramate) 200 Mg Tablet 200 MG PO BID Verapamil ER (Verapamil ER) 240 Mg Tber 240 MG PO DAILY Scheduled PRN Albuterol Neb Soln (Albuterol Neb Soln) 2.5 Mg/3 Ml Vial.neb 2.5 MG INHALATION Q4H PRN PRN For Wheezing Apixaban (Eliquis) 5 Mg Tablet 5 MG PO DIRECTED PRN PRN pulmonary embolism 2 pills twice per day for 7 days, then 1 pill twice per day Clonazepam (Clonazepam) 1 Mg Tablet 1-2 MG PO DAILY PRN PRN For Anxiety or Agitation Dihydroergotamine Mesylate (Migranal) 1 Ml [place].pump 1 ML NS q15 mins x2 BID PRN PRN mirgane Naproxen Sodium (Aleve) 220 Mg Capsule 220 MG PO PRN "as needed" Ondansetron (Ondansetron) 8 Mg Tablet 8 MG PO TID PRN PRN For Nausea Sumatriptan Succinate (Sumatriptan Succinate) 100 Mg Tablet 100 MG PO DIRECTED PRN PRN migrane one tablet with onset of migrane, may repeat in 2 hrs. max dose 2 tabs in 24hrs diphenhydrAMINE HCl (Benadryl) 25 Mg Capsule 25-50 MG PO PRN "as needed" hydrOXYzine Hcl (HydrOXYzine Hcl) 25 Mg Tablet 25 MG PO Q6H PRN PRN For Anxiety or Agitation oxyCODONE-Acetaminophen 5-325 mg (oxyCODONE-Acetaminophen 5-325 mg) 1 Each Tablet 1 TAB PO Q4H PRN PRN For Pain Miscellaneous Medications ([cannabis oil]) 10 MG General Time Seen by MD: 15:58 Chief Complaint Other (Left leg pain) Hx Obtained From: Patient Arrived By: Walk-in Onset Occurred: 9 - 12 hours ago Symptom Duration: Since onset Location: : Leg left Quality: Burning, Painful Severity: Current: Moderate Severity: Maximum: Severe Recent Healthcare: No recent doctor visit, No recent hospitalization Similar Sx Previous: Yes Risk-Extremity Prob Lower Well's Criteria for DVT Prev document DVT (1) Well's DVT Score: 1-2 pts (mod risk 33%) Past Medical History Past Medical History Fibromyalgia Bipolar Depression Prior psychiatric admissions for suicidal ideations and prior medication overdose Anxiety Kidney Stones History of esophageal stricture requiring dilation 10+ years ago Chronic back pain Hypothyroid Asthma Paroxysmal Afib 05/2013 - on daily flecainide, not anticoagulated History of SVT May 2010 BL PE 08/2016 Reports: Cancer, Hypertension Past Surgical History Abscess removed from uterus Adenoidectomy Ear tubes Reports: , Cholecystectomy, Tonsillectomy Family History History of heart disease (grandfather, quadruple bypass) Smoking History Former Smoker Social History Alcohol Use: Denies alcohol use Drug Use: In recovery Other Social History: Good social support, , Local resident Ambulatory Status Independent Review of Systems Constitutional: Denies: Fever Musculoskeletal: Reports: Extremity pain, Extremity swelling Complete sys rev & neg: except as marked. Respiratory: Denies: Shortness of breath Physical Exam Initial Vital Signs Vital Signs (First) Date Time Temp Pulse Resp B/P Pulse Ox O2 Delivery O2 Flow Rate FiO2 09/23/16 14:59 36.8 81 17 146/80 97 Room Air Initial VS: Reviewed General/Constitutional: Well-developed, Well-nourished Head / Eyes: Normocephalic ENT: Conjunctiva normal Neck: Supple Abdomen / GI: No distention Upper Extremities: No swelling Skin: Warm, Dry, No cyanosis Neurologic: Alert, Oriented, Nonfocal Psychiatric: Mood/affect normal, Behavior normal, Normal thought content Lower Extremity / Pelvis / MS: Neurologic intact, Vascular intact Left Leg / Calf: Positive: Tenderness present... (Moderate) Don't feel any chords. No warmth. Interpretation & Diagnostics US Soft Tissue/Musculoskeletal US DVT: No DVT visualized. Compressed the leg from the knee down. Exam Performed by: Radiologist Re-Eval/Medical Decision Re-Evaluation/Progress : Time of Eval: 17:46 Patient Status: Condition improved Re-Evaluation/Progress Note: Discussed ultrasound results and plan for discharge. Pt understands and agrees. Counseled Regarding: Diagnosis, Lab results, Need for follow-up, When/why to return to ED Discharge & Departure Impression: Primary Impression: Pain of left calf Disposition: Home Discharge Condition All VS Reviewed: Yes Condition: Improved Additional Instructions: Emergency department evaluation tonight including interview, examination review of past records and ultrasound of the leg. No DVT in the left leg is identified. Continue Elequis as before being sure not to miss any doses. Elevate left leg above the level of the heart and may apply ice, keep ice wrapped in a cloth and removed after 10-15 minutes. You can do this 4-5 times a day. Tylenol as needed for pain. Return emergency Department for increasing pain, follow-up with primary care in 2-3 days. Referrals: Tre Baltazar MD (PCP) Scribe Attestation Portions of this note were transcribed by Elaina Thompson. I, Dr. Stoner personally performed the history, physical exam and medical decision-making; I reviewed and confirmed the accuracy of the information in the transcribed note. Signed by : Amy Bauer, 09/23/16 at 1750. copies to: Tre Baltazar MD, Donald L MD September 23, 2016 15:59 ELAINA THOMPSON September 23, 2016 16:06
--- NOTE | 2016-09-23 18:07 | DRSVH ---
PROCEDURE: US VEINOUS LEG DUPLEX UNILATERAL, LEFT INDICATIONS: L leg swelling, DVT history TECHNIQUE: Real-time imaging, as well as color and pulse Doppler interrogation, were performed of the lower extr emity deep veins from the inguinal ligament to the popliteal fossa. COMPARISON: None. FINDINGS: Image quality limited by patient body habitus. The deep veins are normally compressible, and free of intraluminal thrombus. Color and pulse Doppler demonstrate normal phasic intraluminal fl ow. There is normal augmentation response to distal compression maneuver. IMPRESSION: No evidence of deep vein thrombosis involving the left lower extremity. Dictated by: Sandhya Rolon MD, PhD on 09/23/2016 at 18:05 Approved by: Sandhya Rolon MD, PhD on 09/23/2016 at 18:06
[2016-09-23 18:13] VITALS: BP 137/60; PULSE 72; RESP 16; O2SAT 98
[2016-10-24] MEDS ORDERED: WARF10TA PO (11:23)
[2016-10-24] MEDS ORDERED: WARF5TAB PO (11:23)
== END 2016-09-23 18:15 | disposition home or self-care (01) ==
LOC: SED 14:53
DX: M79.605 Pain in left leg (principal); E03.9 Hypothyroidism, unspecified; J45.909 Unspecified asthma, uncomplicated; I10 Essential (primary) hypertension; Z87.891 Personal history of nicotine dependence; Z86.711 Personal history of pulmonary embolism; Z88.1 Allergy status to other antibiotic agents; Z91.018 Allergy to other foods; Z88.5 Allergy status to narcotic agent; Z79.82 Long term (current) use of aspirin

== ENCOUNTER → 2016-12-17 | Day surgery (SDC) | payer OTHER ==
--- NOTE | 2016-12-11 13:22 | PCM.ANEPRE ---
Anesthesia Pre-Op Review Reason for Review: elevated bmi, recent admission PE- on coumadin Anesthesia Recommendations: Proceed with Procedure Additional Comments 36 yo F with SRI, paroxysmal Atrial fibrillation, BMI 67 with recent unprovoked PE on 08/22/2016 getting cysto/stent on 12/17. Pt had negative hypercoagulability workup and interim TTE showed normal size and function with mild MR, EF 60-65%. Pt has been anticoagulated since PE diagnosis and had SpO2 98% on RA, clear lungs and no signs of respiratory distress at latest clinic visit. Pulmonary function likely optimized if patient remains on anticoagulation and no change in respiratory status before scheduled date. Okay to proceed with low-risk surgery without further outpatient workup pending evaluation by anesthesiologist on day of surgery. Chart Reviewed by: MD Rosemarie Green Eric J MD Dec 11, 2016 13:22
[~2016-12-17] VITALS: Ht 162.6 cm; Wt 171.3 kg
[2016-12-17] VITALS (10 sets, daily range): BP systolic 123–148; BP diastolic 55–88; PULSE 65–81; RESP 15–18; O2SAT 97–100
[~2016-12-17] MED LIST changes: +Albuterol 2.5 mg/3 mL Inhalation Solution NEB PRN; +Atropine 0.4 mg/mL Inj IVPUSH PRN; +CeFAZolin Inj 3 Gm/ D5W 50 mL Bag IV ONE; +EPHEDrine Sulfate 50 mg/mL Inj IVPUSH PRN; +HYDROmorphone 1 mg/mL Inj IVPUSH PRN; +Ketamine 10 mg/mL 20 mL Inj ONE; +LEVO100T6 PO; +LURA120T PO; +Labetalol 5 mg/mL 20 mL Inj IV PRN; +Lactated Ringer's 1,000 ML IV ONE; +Lactated Ringer's 1,000 ML IV SCH; +Lactated Ringer's 500 ML IV PRN; +MetoCLOpramide 5 mg/mL 2 mL Inj IVPUSH PRN; +OXYC-466 PO; +Ondansetron 2 mg/mL 2 mL Inj IVPUSH PRN; +Ondansetron 2 mg/mL 2 mL Inj ONE; +Phenylephrine 10,000 mCg/mL Inj IVPUSH PRN; +Propofol 10,000 mCg/mL 20 mL Inj ONE; +TOPI-31 PO; +WARF5TAB7 PO; +coumadin; +fentaNYL-PF 50 mCg/mL 2 mL Inj IVPUSH PRN; +fentaNYL-PF 50 mCg/mL 2 mL Inj ONE
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
--- NOTE | 2016-12-17 10:33 | DRSVH ---
PROCEDURE: X-RAY KUB ([id number]) INDICATIONS: LEFT RENAL COLIC TECHNIQUE: One view of the abdomen acquired. COMPARISON: Caden Duval, CR, ABDOMEN-1 VIEW/KUB, 10/11/2016, 1:23 PM. [facility], CT, CT KUB, 10/11/2016, 14:06. FINDINGS: Surgical changes and devices: Surgical clips right upper quadrant consistent with cholecystectomy. Bowel: Bowel gas pattern is normal. Soft tissues: No suspicious abdominal calcifications. Visualized solid organ contours appear normal in size. Bones: No suspicious bony lesions. IMPRESSION: Currently no urinary tract stone is seen but the patient body habitus is large and accura te detection of urinary tract stones would be improved by obtaining CT KUB which may be warranted dep ending on the clinical status. Dictated by: Denny Diez M.D. on 12/17/2016 at 10:28 Approved by: Denny Diez M.D. on 12/17/2016 at 10:32
[2016-12-17] MEDS: CeFAZolin Inj 3 GM in Dextrose 5% 50 ML IV ONE ×2 (10:46→10:47)
--- NOTE | 2016-12-17 12:13 | PCM.ANEP1 ---
Post Anesthesia PACU Phase 1 Assessment Date of Service: Dec 17, 2016 Vital Signs Vital Signs Date Time Temp Pulse Resp B/P Pulse Ox O2 Delivery O2 Flow Rate FiO2 12/17/16 11:55 81 15 130/88 98 Room Air 12/17/16 11:50 70 17 148/79 98 Room Air 12/17/16 11:45 69 15 131/79 97 Room Air 12/17/16 11:40 71 15 134/75 100 Room Air 12/17/16 11:35 73 15 123/78 100 Room Air 12/17/16 11:25 36.3 76 15 134/60 100 Simple Mask 8 12/17/16 11:20 77 16 144/70 100 Simple Mask 8 12/17/16 11:17 36.1 75 16 137/55 99 Simple Mask 8 12/17/16 09:57 36.6 77 18 137/60 97 Room Air 12/17/16 09:57 CPAP/BIPAP Anesthetic Administered: GA Level of Alertness: Sleepy, easy to arouse COLEY's with Equal Strength: Yes Pain: Yes Nausea or Vomiting: No CV Function & Hydration Stable: Yes Airway Device: Oxygen Delivery: Simple Mask Lungs: Clear to Auscultation, Clear to Percussion PACU Phase 2 Assessment Complications: No Patient Instructions Provided: N/A Denny Doll MD Dec 17, 2016 12:13
--- NOTE | 2016-12-18 01:37 | OP ---
[address] [address] OPERATIVE REPORT PATIENT: ELVIA FERGUSON : 1980 MR#: [id number] ADMIT: 12/17/2016 JOB ID: [id number] DATE OF SURGERY: PREOPERATIVE DIAGNOSIS(ES): 1. A 5 mm obstructing left proximal ureteral calculus. 2. Intractable left renal colic. 3. Intermittent gross hematuria. 4. Chronic warfarin anticoagulation (at least until May 2017). POSTOPERATIVE DIAGNOSIS(ES): SURGEON: Taurus Kc MD. ANESTHESIOLOGIST: Denny Doll MD. ANESTHESIA: General. FINDINGS: Urethra normal. Bladder urothelium is normal appearing throughout. There is no stone tumor, foreign body or diverticulum seen. Retrograde pyelography was not performed. PROCEDURE SUMMARY: The patient was positioned in supine and was administered general anesthesia. She was then repositioned in semi-lithotomy and lower abdomen, genitalia and groin were prepped and draped in sterile fashion. The 22 panendoscope was then inserted into the lower urinary tract with the findings as described above. Next, a 0.35 Glidewire was advanced into the left collecting system under direct and fluoroscopic guidance. Over this, a 6-[place]oc[place] x 22-32 cm multilength stent was selected and this was advanced over the Glidewire under direct fluoroscopic guidance satisfactorily. NO RETRIEVAL LINE WAS LEFT ATTACHED. The patient was then awakened, repositioned in supine, transferred to a gurney, and transferred to recovery in stable condition.
== END | disposition home or self-care (01) ==
LOC: SAS 08:49
PROVIDERS: ATTEND Specialist
DX: N20.1 Calculus of ureter (principal); N23 Unspecified renal colic; R31.0 Gross hematuria; I26.99 Other pulmonary embolism without acute cor pulmonale; I48.0 Paroxysmal atrial fibrillation; I47.1 Supraventricular tachycardia; G47.30 Sleep apnea, unspecified; J45.909 Unspecified asthma, uncomplicated; E66.01 Morbid (severe) obesity due to excess calories; Z68.44 Body mass index [BMI] 60.0-69.9, adult; Z79.01 Long term (current) use of anticoagulants
CPT/HCPCS: 52332; 74000; 76000; C2617; J0690; J2405; J2704; J3010; J7120

== ENCOUNTER 2016-12-22 17:35 | Emergency (ER) | payer OTHER ==
[~2016-12-22] VITALS: Ht 165.1 cm; Wt 169.1 kg
[~2016-12-22 17:35] MED LIST changes: -ASPI-973 PO; -Albuterol 2.5 mg/3 mL Inhalation Solution NEB PRN; -Atropine 0.4 mg/mL Inj IVPUSH PRN; -CeFAZolin Inj 3 Gm/ D5W 50 mL Bag IV ONE; -EPHEDrine Sulfate 50 mg/mL Inj IVPUSH PRN; -HYDROmorphone 1 mg/mL Inj IVPUSH PRN; -Ketamine 10 mg/mL 20 mL Inj ONE; -LEVO100T6 PO; -LURA120T PO; -Labetalol 5 mg/mL 20 mL Inj IV PRN; -Lactated Ringer's 1,000 ML IV ONE; -Lactated Ringer's 1,000 ML IV SCH; -Lactated Ringer's 500 ML IV PRN; -MetoCLOpramide 5 mg/mL 2 mL Inj IVPUSH PRN; -NAPR220C11 PO; -OXYC-466 PO; -Ondansetron 2 mg/mL 2 mL Inj IVPUSH PRN; -Ondansetron 2 mg/mL 2 mL Inj ONE; -Phenylephrine 10,000 mCg/mL Inj IVPUSH PRN; -Propofol 10,000 mCg/mL 20 mL Inj ONE; -TOPI-31 PO; -WARF5TAB7 PO; -cannabis oil; -fentaNYL-PF 50 mCg/mL 2 mL Inj IVPUSH PRN; -fentaNYL-PF 50 mCg/mL 2 mL Inj ONE
[2016-12-22 17:41] VITALS: BP 141/93; PULSE 95; RESP 20; O2SAT 97
--- NOTE | 2016-12-22 18:10 | ED.REPORT ---
HPI-Dyspnea / Wheezing Date of Service Dec 22, 2016 ED Provider: Edgardo Ireland MD Pt is a 36 year old female anticoagulated on Coumadin with a history of pulmonary embolism, A-fib, asthma, hypertension, bipolar disorder, anxiety, fibromyalgia, and recent nephrolithiasis who presents to the ED c/o intermittent SOB onset August 2016. She states it "hurts and is hard to breathe" , and that her SOB has worsened the past two days. Patient has been using her albuterol inhaler with little relief. Additional symptoms include chest pain, wheezing, fatigue, chills, malaise, nausea, and hematuria secondary to left- sided nephrolithiasis. She denies fever, diarrhea, constipation, focal weakness or any chance of . Pt had a left-sided stent placed for nephrolithiasis on 12/21/16. Medication list include 10 mg of Percocet b.i.d and Flecainide. Her last Percocet was taken 9 hours prior to arrival. Nursing Notes Stated Complaint: SOB, WHEEZING Chief Complaint: Respiratory Distress Nursing Notes Reviewed: Yes Allergies: Coded Allergies: azithromycin (Verified Allergy, Severe, causes a-fib, 09/23/16) White (Verified Allergy, Intermediate, Rash, 09/23/16) citric acid (Verified Allergy, Intermediate, Rash, 09/23/16) hydrocodone bitartrate (Verified Allergy, Mild, GI, 09/23/16) Scheduled ([coumadin]) Unknown Dose DAILY Albuterol HFA (Proair HFA) 8.5 Gm Hfa.aer.ad 2 PUFFS INHALATION Q4H Apixaban (Eliquis) 5 Mg Tablet 5 MG PO DAILY Baclofen (Baclofen) 10 Mg Tablet 10-20 MG PO TID Flecainide Acetate (Flecainide Acetate) 100 Mg Tablet 100 MG PO Q12H Gabapentin (Gabapentin) 600 Mg Tablet 1,200 MG PO TID Hydrochlorothiazide (Hydrochlorothiazide) 25 Mg Tablet 25 MG PO DAILY Hydroxyzine HCl (HydrOXYzine Hcl) 50 Mg Tablet 50 MG PO HS Levothyroxine Sodium (Levo-T) 88 Mcg Tablet 88 MCG PO DAILY Lurasidone (Latuda) 80 Mg Tablet 120 MG PO HS Medroxyprogesterone Acetate (Depo-Provera) 150 Mg/1 Ml Syringe 150 MG IM [id number] Nystatin (Nystatin) 1 Each Powder.ea. 1 APPLIC TOP BID Pantoprazole DR (Pantoprazole DR) 20 Mg Tablet.dr 20 MG PO DAILY Potassium Chloride (Potassium Chloride) 20 Meq Tab.er.prt 20 MEQ PO BID TAKE WITH FOOD Topiramate (Topiramate) 200 Mg Tablet 200 MG PO BID Verapamil ER (Verapamil ER) 240 Mg Tber 240 MG PO DAILY Scheduled PRN Albuterol Neb Soln (Albuterol Neb Soln) 2.5 Mg/3 Ml Vial.neb 2.5 MG INHALATION Q4H PRN PRN For Wheezing Clonazepam (Clonazepam) 1 Mg Tablet 1-2 MG PO DAILY PRN PRN For Anxiety or Agitation Dihydroergotamine Mesylate (Migranal) 1 Ml Valentine.pump 1 ML NS q15 mins x2 BID PRN PRN mirgane Ondansetron (Ondansetron) 8 Mg Tablet 8 MG PO TID PRN PRN For Nausea Sumatriptan Succinate (Sumatriptan Succinate) 100 Mg Tablet 100 MG PO DIRECTED PRN PRN migrane one tablet with onset of migrane, may repeat in 2 hrs. max dose 2 tabs in 24hrs diphenhydrAMINE HCl (Benadryl) 25 Mg Capsule 25-50 MG PO PRN "as needed" hydrOXYzine Hcl (HydrOXYzine Hcl) 25 Mg Tablet 25 MG PO Q6H PRN PRN For Anxiety or Agitation oxyCODONE-Acetaminophen 5-325 mg (oxyCODONE-Acetaminophen 5-325 mg) 1 Each Tablet 1 TAB PO Q4H PRN PRN For Pain General Time Seen by MD: 18:09 Chief Complaint Shortness of breath Hx Obtained From: Patient, Other family... 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 Past Medical History Fibromyalgia Bipolar Depression Prior psychiatric admissions for suicidal ideations and prior medication overdose Anxiety Kidney Stones History of esophageal stricture requiring dilation 10+ years ago Chronic back pain Hypothyroid Asthma Paroxysmal Afib 05/2013 - on daily flecainide, not anticoagulated History of SVT May 2010 BL PE 08/2016 Reports: Cancer, Hypertension Past Surgical History Abscess removed from uterus Adenoidectomy Ear tubes Reports: , Cholecystectomy, Tonsillectomy Family History History of heart disease (grandfather, quadruple bypass) Smoking History Former Smoker Social History Alcohol Use: Denies alcohol use Drug Use: In recovery Other Social History: Good social support, , Local resident Ambulatory Status Independent Review of Systems Constitutional: Reports: Chills, Fatigue, Malaise, Denies: Fever Respiratory: Reports: Shortness of breath, Wheezing Cardiovascular: Reports: Chest pain Complete sys rev & neg: except as marked. GI: Reports: Nausea, Denies: Constipation, Diarrhea Female: Reports: Hematuria (secondary to nephrolithiasis), Denies: Neurologic: Denies: Focal weakness Physical Exam Initial Vital Signs Vital Signs (First) Date Time Temp Pulse Resp B/P Pulse Ox O2 Delivery O2 Flow Rate FiO2 12/22/16 17:41 36.8 95 20 141/93 97 Room Air Initial VS: Reviewed Head / Eyes: Atraumatic, Normocephalic Skin: Warm, Dry, No cyanosis Neurologic: Alert, Oriented, Nonfocal Psychiatric: Mood/affect normal, Behavior normal, Normal thought content General/Constitutional: Awake, Alert Neck: Supple, Full range of motion Respiratory / Chest: Atraumatic Diminished Breath Sounds: Positive: Decreased bilateral Wheezing / Retractions: Positive: Wheezing expiratory (throughout) Decreased air movement in lungs Cardiovascular: Heart rate NL, Regular rhythm Heart Sounds / Murmur: Positive: Systolic murmur present.. (II/ - 2/6 systolic at right upper sternal border) Lower Ext Edema: Positive: Bilateral 1+ Abdomen: Atraumatic, Soft Tenderness/Guarding/Rebound: Positive: Tender LLQ... (Mild LLQ tenderness to palpation) Back: Atraumatic, Full range of motion Left-sided CVAT to percussion Interpretation & Diagnostics Lab Results Interpretation Result Diagram: 12/22/16 1930 12/22/16 193 Test 12/22/16 19:30 12/22/16 21:51 White Blood Count 7.2th/mm3 (3.8-10.1) Red Blood Count 4.48mil/mm3 (3.90-5.20) Hemoglobin 11.9g/dL (12.0-15.6) Hematocrit 37.1% (35.0-46.0) Mean Corpuscular Volume 82.8fL (81-100) Mean Corpuscular Hemoglobin 26.6pg (27.0-35.0) Mean Corpuscular Hemoglobin Concent 32.1% (32.0-37.0) Red Cell Distribution Width 14.8% (12.3-15.4) Platelet Count 197bil/L (150-400) Neutrophils (%) (Auto) 44.5% (40-74) Lymphocytes (%) (Auto) 37.9% (14-46) Monocytes (%) (Auto) 13.8% (4-12) Eosinophils (%) (Auto) 2.9% (0-5) Basophils (%) (Auto) 0.1% (0-3) Prothrombin Time 37.4sec (8.1-12.5) Prothromb Time International Ratio 3.41ratio Sodium Level 138mEq/L (134-144) Potassium Level 3.0mEq/L (3.5-5.2) Chloride Level 102mEq/L (97-108) Carbon Dioxide Level 20mmol/L (18-29) Blood Urea Nitrogen 7mg/dL (6-20) Creatinine 0.78mg/dL (0.57-1.00) Estimat Glomerular Filtration Rate 120mL/min (>59) Glucose Level 112mg/dL (60-99) Calcium Level 8.7mg/dL (8.5-10.1) Magnesium Level 1.9mg/dL (1.6-2.6) Total Bilirubin 0.2mg/dL (0.0-1.2) Aspartate Amino Transf (AST/SGOT) 28U/L (0-50) Alanine Aminotransferase (ALT/SGPT) 24U/L (0-32) Alkaline Phosphatase 132U/L (25-150) Troponin T < 0.010ug/L (0.0-0.011) Pro-B-Type Natriuretic Peptide 48.39pg/mL (0-130) Total Protein 6.6g/dL (6.4-8.4) Albumin 3.7g/dL (3.4-5.0) Procalcitonin 0.06ng/mL (0.00-0.08) Hold Rahman Top Tube Received (Received) Urine Color Straw (YELLOW) Urine Appearance Cloudy (CLEAR,HAZY) Urine pH 6.5 (5.0-8.0) Urine Specific [place] 1.010 (1.003-1.035) Urine Protein 30mg/dL (NEG,TRACE) Urine Glucose (UA) Negativemg/dL (NEGATIVE) Urine Ketones Negativemg/dL (NEGATIVE) Urine Occult Blood Large (NEGATIVE) Urine Nitrite Negative (NEGATIVE) Urine Bilirubin Negative (NEGATIVE) Urine Urobilinogen Normalmg/dL (NORMAL) Urine Leukocyte Esterase Small (NEGATIVE) Urine RBC >50/hpf (0-2) Urine WBC 0-5/hpf (0-5) Urine Epithelial Cells Few/hpf (NONE-MOD) Urine Crystals None seen (NONE SEEN) Urine Bacteria Few/hpf (NONE-FEW) Urine Hyaline Casts None/lpf (NONE) Urine Granular Casts None seen (NONE SEEN) Urine Waxy Casts None seen (NONE SEEN) Urine Red Blood Cell Casts None seen (NONE SEEN) Urine White Blood Cell Casts None seen (NONE SEEN) Urine Mucus Present (None Seen) Urine Trichomonas None seen (NONE SEEN) Urine Yeast None (NONE SEEN) Urinalysis Comment None Urine Culture Reflexed Indicated ECG Interpretation ECG Interpretation: Sinus rhythm, rate 83 Prolonged QT interval No significant change 08/22/16 Time: 06:36 Interpreted by: ED physician X-Ray Chest Interpretation Chest Xray Interpretation: IMPRESSION: Mild acute exacerbation of chronic CHF pattern. Dictated by: Denny Diez M.D. on 12/22/2016 at 19:43 Interpretation / Wet Read by: Interpret - Radiologist X-Ray Abdominal Interpretation IMPRESSION: Stable appearance of a double pigtail left ureteral stent and surgical clips associated with prior cholecystectomy. No intestinal obstruction or perforation found. Dictated by: Denny Diez M.D. on 12/22/2016 at 19:41 Interpretation / Wet Read by: Interpret - Radiologist Re-Eval/Medical Decision Med Decision/Clinical Course 36-year-old female with extensive past medical history presents with wheezing, shortness of breath and left-sided flank pain. She had a ureteral stent placed by Dr. Kc earlier this week and has had significant discomfort since that time. She is in no respiratory distress but has some persistent expiratory wheezing despite nebulizers here. Her chest x-ray is normal. She is not hypoxic. She does have a history of asthma and I suspect that she is having an exacerbation of this asthma. Her pro calcitonin and white blood cell count are negative so infection is unlikely. I treated her with Solu-Medrol here and discharged her home with 5 days of prednisone. I reassured her that she does not have a pulmonary embolus as her INR is appropriately treated, and in fact a little too high. In this regard I advised her to not take her dose of warfarin tonight, but restart at the usual dose tomorrow. Her chest x-ray showed a small amount of fluid in her lungs consistent with mild CHF. She was given Lasix 40 mg IV here and instructed to follow-up with her PCP for an echocardiogram. Her BNP was not elevated and her troponin was not elevated. EKG showed no findings of acute coronary syndrome. She received Zofran and Dilaudid to help with her pain and nausea which helped significantly. I discussed with the patient that she needs to follow-up with her urologist to discuss the discomfort of having the stent in place. It appeared in good position on x-ray today and patient was notified of this. Potassium was also low, and this was replaced with 40 mEq orally. She was advised to continue to take her potassium supplements. I discussed her care at length with her, her mom, and her and they are in agreement with the plan. They will return if there are new or worsening symptoms. Source of Hx: Old records Re-Evaluation/Progress #1: Time of Eval: 21:27 Re-Evaluation/Progress Note: Pt rechecked. Discussed lab results. Pt does not report improvement in her symptoms. Re-Evaluation/Progress #2: Time of Eval: 22:13 Patient Status: Condition improved Re-Evaluation/Progress Note: The patient's breathing has improved upon recheck. She is informed of her current results and the intended treatment plan. All of the patient's questions about her diagnosis and disposition are addressed. She understands and agrees with the plan. Re-Evaluation/Progress #3: Time of Eval: 22:24 Re-Evaluation/Progress Note: Pt requested to talk to doctor to clear additional questions. All new questions addressed at this time. Counseled Regarding: Diagnosis, Lab results, Need for follow-up, When/why to return to ED Discharge & Departure Impression: Primary Impression: Asthma exacerbation Additional Impressions: Renal colic on left side Supratherapeutic INR Shortness of breath Wheezing Hypokalemia Hematuria Ruled Out: Pneumonia, Anemia Disposition: Home Discharge Condition All VS Reviewed: Yes Condition: Stable Patient Instructions: Asthma (ED), Renal Colic (ED) Additional Instructions: Thank you for trusting us with your medical care tonight. There is no dangerous cause for your left sided pain, but I believe it is related to the stent which was recently placed. Please follow-up with Dr. Kc early next week for a reevaluation/recheck. There are no signs of urine infection today. I believe that your shortness of breath and wheezing is related to an exacerbation of her asthma. You were given methylprednisolone here and I am sending you home with a prescription for 5 days of prednisone which will help your lungs. Your labs do not indicate an infection in your lungs and your oxygen levels are normal. Please continue to use your inhalers as directed. Your shortness of breath is not related to a pulmonary embolus as year what is thin enough that you cannot form clots. There was a small amount of fluid seen in your lungs consistent with mild congestive heart failure and you are given an additional water pill in the emergency room. Please follow-up to discuss this further with her primary care provider. Your potassium was mildly low and you were given potassium chloride 40 mEq here in the ER. Please continue your home potassium. Your INR was elevated at 3.4. Please hold your dose of Coumadin today and restart your normal dose tomorrow. Please follow-up with [facility] next week. Please see your primary care provider early next week, return to the ER for new or worsening symptoms. Referrals: Tre Baltazar MD (PCP) Scribe Attestation Portions of this note were transcribed by Zenia Wiggins and Phoenix Cuevas. I, Dr. Altamirano, personally performed the history, physical exam and medical decision-making; I reviewed and confirmed the accuracy of the information in the transcribed note. copies to: Tre Baltazar MD, Gary R DO Dec 22, 2016 18:10 Zenia Wiggins Dec 22, 2016 18:27 PHOEN[place] CUEVAS Dec 22, 2016 20:42
[2016-12-22] MEDS ORDERED: MethylprednisoLONE Sodium Succinate 62.5 mg/mL 2 mL Inj IVPUSH ONE (18:25)
[2016-12-22] MEDS ORDERED: Albuterol 2.5 mg/3 mL Inhalation Solution NEB ONE (18:25)
[2016-12-22] MEDS ORDERED: Albuterol-Ipratropium 3 mL Inhalation Solution NEB ONE (18:25)
[2016-12-22] MEDS: HYDROmorphone 0.5 mg/0.5 mL iSecure Syringe IVPUSH PRN ×2 (19:33→20:51)
[2016-12-22] MEDS: Ondansetron 2 mg/mL 2 mL Inj IVPUSH PRN ×2 (19:36→21:33)
--- NOTE | 2016-12-22 19:44 | DRSVH ---
PROCEDURE: X-RAY ABDOMEN WITH ERECT AND/OR DECUBITUS VIEWS ([id number]) INDICATIONS: L sided abd/cva pain, s/p stent, SOB/wheezing TECHNIQUE: 2 views of the abdomen were acquired. COMPARISON: [facility], CR, XR KUB, 12/21/2016, 15:20. FINDINGS: Surgical changes and devices: Double pigtail ureteral catheter on the left, previously present, stab le over time and surgical clips of cholecystectomy right upper quadrant. Bowel: No pneumoperitoneum. The bowel gas pattern is normal. Soft tissues: No masses; visualized solid organ contours appear normal in size. No suspicious abdom inal calcifications. Bones: No suspicious bony abnormalities. IMPRESSION: Stable appearance of a double pigtail left ureteral stent and surgical clips associated with prior cholecystectomy. No intestinal obstruction or perforation found. Dictated by: Denny Diez M.D. on 12/22/2016 at 19:41 Approved by: Denny Diez M.D. on 12/22/2016 at 19:42
--- NOTE | 2016-12-22 19:45 | DRSVH ---
PROCEDURE: X-RAY CHEST, TWO VIEWS ([id number]) INDICATIONS: SOB/wheezing TECHNIQUE: 2 views of the chest were acquired. COMPARISON: None. FINDINGS: Surgical changes and devices: None. Lungs and pleura: No pleural effusions or pneumothorax. Lungs are increased in density secondary to what appears to be mild pulmonary edema. Mediastinum: Mediastinal contours are normal. Heart size is mildly enlarged, globally. Bones and chest wall: No suspicious bony abnormalities. Soft tissues appear unremarkable. IMPRESSION: Mild acute exacerbation of chronic CHF pattern. Dictated by: Denny Diez M.D. on 12/22/2016 at 19:43 Approved by: Denny Diez M.D. on 12/22/2016 at 19:43
[2016-12-22 19:46] LABS: BASOPHILS % (AUTO) 0.1 % (0-3); EOSINOPHILS % (AUTO) 2.9 % (0-5); MONOCYTES % (AUTO) 13.8 % (4-12); Mean Corpuscular Hemoglobin 26.6 pg (27.0-35.0); Mean Corpuscular Volume 82.8 fL (81-100); NEUTROPHILS % (AUTO) 44.5 % (40-74); Platelet Count 197 bil/L (150-400)
[2016-12-22 20:00] VITALS: PULSE 82; RESP 21; O2SAT 96
[2016-12-22] MEDS ORDERED: Furosemide 10 mg/mL 4 mL Inj IVPUSH ONE (20:00)
[2016-12-22 20:10] LABS: INR 3.41 ratio
[2016-12-22 20:29] LABS: TROPONIN T < 0.010 ug/L (0.0-0.011)
[2016-12-22 20:37] LABS: Magnesium 1.9 mg/dL (1.6-2.6)
[2016-12-22 20:52] VITALS: BP 162/70; PULSE 79; RESP 20; O2SAT 95
[2016-12-22] MEDS ORDERED: Potassium Chloride 20 mEq SR Tablet PO ONE (21:30)
[2016-12-22] MEDS ORDERED: HYDROmorphone 1 mg/mL Inj IVPUSH ONE (21:35)
[2016-12-22 22:08] LABS: APPEARANCE,URINE CLOUDY (CLEAR,HAZY); COLOR,URINE STRAW (YELLOW); PH,URINE 6.5 (5.0-8.0)
[2016-12-22 22:09] LABS: OCCULT BLOOD,URINE LARGE (NEGATIVE); UROBILINOGEN,URINE NORMAL (NORMAL)
[2016-12-22 22:48] VITALS: BP 142/66; PULSE 77; RESP 24; O2SAT 95
[2016-12-23] MEDS ORDERED: LEVO100T6 PO (12:31)
[2016-12-23] MEDS ORDERED: OXYC-466 PO (18:20)
[2016-12-23] MEDS ORDERED: TOPI-31 PO (18:25)
[2016-12-23] MEDS ORDERED: LURA120T PO (18:39)
[2016-12-23] MEDS ORDERED: WARF5TAB7 PO ×3 (18:43)
== END 2016-12-22 22:37 | disposition home or self-care (01) ==
LOC: SED 17:35
DX: J45.901 Unspecified asthma with (acute) exacerbation (principal); N23 Unspecified renal colic; R79.1 Abnormal coagulation profile; E87.6 Hypokalemia; I48.0 Paroxysmal atrial fibrillation; I10 Essential (primary) hypertension; E03.9 Hypothyroidism, unspecified; Z87.891 Personal history of nicotine dependence; Z86.711 Personal history of pulmonary embolism; Z87.39 Personal history of other diseases of the musculoskeletal system and connective tissue; Z87.442 Personal history of urinary calculi; Z90.49 Acquired absence of other specified parts of digestive tract; Z85.9 Personal history of malignant neoplasm, unspecified; Z79.51 Long term (current) use of inhaled steroids; Z88.1 Allergy status to other antibiotic agents; Z88.5 Allergy status to narcotic agent; Z88.8 Allergy status to other drugs, medicaments and biological substances
CPT/HCPCS: 36415; 71020; 74010; 80053; 81000; 83735; 83880; 84145; 84484; 85025; 85610; 87086; 87088; 93005; 96374; 96375; 96376; 99285; J1170; J1200; J1940; J2405; J2930; J7613; J7620

== ENCOUNTER 2016-12-23 12:02 | Inpatient (IN) | payer OTHER ==
[~2016-12-23] VITALS: Ht 165.1 cm; Wt 174.0 kg
[2016-12-23 12:08] VITALS: BP 139/71; PULSE 101; RESP 22; O2SAT 95
[2016-12-23] MEDS ORDERED: LEVO100T6 PO (12:31)
--- NOTE | 2016-12-23 12:52 | ED.REPORT ---
HPI-General Illness Date of Service Dec 23, 2016 ED Provider: Doc,Ed Cynthia is a 36-year-old female history of pulmonary embolism, A. fib, anticoagulation with Coumadin, asthma, hypertension, bipolar, anxiety, fibromyalgia and nephrolithiasis presenting to the emergency department with complaint of continuing shortness of breath, wheezing and left flank pain. Seen in this department last night for similar. She complains of worsening dyspnea on exertion. Associated with nausea, chest pain, heartburn, hematuria, chills, fatigue. She complains of continuing left-sided flank pain that is not responding well to treatment with Percocet. She reports the symptoms then persisted since her procedure for a left ureteral stent 12/21/2016. Denies , fever. Review of records indicate that prior workup included normal troponin, unchanged EKG with prolonged QT interval, urinalysis positive for hematuria but not otherwise suggestive of UTI, unremarkable CBC , CMP notable for hypokalemia with normal magnesium. INR was noted to be supratherapeutic. Chest x-ray consistent with mild acute exacerbation of chronic CHF. Patient was treated with nebulizer, steroids, potassium and discharged with a prescription for prednisone. Advised continue inhalers, follow-up with primary care. She has appointment to follow-up with cardiology January 24 Nursing Notes Stated Complaint: SOB Chief Complaint: Respiratory Distress Nursing Notes Reviewed: Yes Allergies: Coded Allergies: azithromycin (Verified Allergy, Severe, causes a-fib, 09/23/16) White (Verified Allergy, Intermediate, Rash, 09/23/16) citric acid (Verified Allergy, Intermediate, Rash, 09/23/16) hydrocodone bitartrate (Verified Allergy, Mild, GI, 09/23/16) Scheduled Baclofen (Baclofen) 10 Mg Tablet 20 MG PO TID Flecainide Acetate (Flecainide Acetate) 100 Mg Tablet 100 MG PO BIDWM Gabapentin (Gabapentin) 600 Mg Tablet 1,200 MG PO TID Hydrochlorothiazide (Hydrochlorothiazide) 25 Mg Tablet 25 MG PO QAM Levothyroxine (Levothyroxine) 100 Mcg Tablet 100 MCG PO QAM Lurasidone (Latuda) 120 Mg Tablet 120 MG PO HS Medroxyprogesterone Acetate (Depo-Provera) 150 Mg/1 Ml Syringe 150 MG IM [id number] Nystatin (Nystatin) 1 Each Powder.ea. 1 APPLIC TOP BID Pantoprazole (Pantoprazole ) 20 Mg Tablet.dr 20 MG PO QAM Potassium Chloride (Potassium Chloride) 20 Meq Tab.er.prt 20 MEQ PO BIDWM TAKE WITH FOOD Topiramate (Topiramate) 100 Mg Tablet 200 MG PO BID Verapamil ER (Verapamil ER) 240 Mg Tber 240 MG PO QAM Warfarin Sodium (Warfarin Sodium) 5 Mg Tablet 5 MG PO TUESDAYS Warfarin Sodium (Warfarin Sodium) 5 Mg Tablet 12.5 MG PO WEDNESDAYS Warfarin Sodium (Warfarin Sodium) 5 Mg Tablet 10 MG PO DAILY EXCEPT SAT/SAT Scheduled PRN Albuterol HFA (Proair HFA) 8.5 Gm Hfa.aer.ad 2 PUFFS INHALATION Q4H PRN PRN For Shortness of Breath Albuterol Neb Soln (Albuterol Neb Soln) 2.5 Mg/3 Ml Vial.neb 2.5 MG INHALATION Q4H PRN PRN For Wheezing Clonazepam (Clonazepam) 1 Mg Tablet 1-2 MG PO TID PRN PRN For Anxiety or Agitation Dihydroergotamine Mesylate (Migranal) 1 Ml Ripton.pump 1 ML NS q15 mins x2 BID PRN PRN mirgane Ondansetron (Ondansetron) 8 Mg Tablet 8 MG PO TID PRN PRN For Nausea Sumatriptan Succinate (Sumatriptan Succinate) 100 Mg Tablet 100 MG PO DIRECTED PRN PRN migrane one tablet with onset of migrane, may repeat in 2 hrs. 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 Past Medical History Fibromyalgia Bipolar Depression Prior psychiatric admissions for suicidal ideations and prior medication overdose Anxiety Kidney Stones History of esophageal stricture requiring dilation 10+ years ago Chronic back pain Hypothyroid Asthma Paroxysmal Afib 05/2013 - on daily flecainide, not anticoagulated History of SVT May 2010 BL PE 08/2016 Reports: Cancer, Hypertension Past Surgical History Abscess removed from uterus Adenoidectomy Ear tubes Reports: , Cholecystectomy, Tonsillectomy Family History History of heart disease (grandfather, quadruple bypass) Smoking History Former Smoker Social History Alcohol Use: Denies alcohol use Drug Use: In recovery Other Social History: Good social support, , Local resident Ambulatory Status Independent Review of Systems General: Denies fever, malaise. HEENT: Denies congestion, headache, sore throat. Respiratory: Admits dyspnea, cough, shortness of breath, wheezing. Cardiovascular: Admits chest pain, denies palpitations Gastrointestinal: Denies vomiting, diarrhea, abdominal pain. Admits flank pain Genitourinary: Denies frequency, urgency, dysuria, hematuria. Otherwise as noted in HPI. Physical Exam General: Well appearing, well developed, morbidly obese, no acute distress. Head: Atraumatic, normocephalic. Eyes: No scleral icterus or injection. No discharge. Vision grossly intact. ENT: Voice clear, hearing grossly intact. Respiratory: Audible stridor, breath sounds clear and equal bilaterally. Mild to moderate respiratory distress. Speaks in complete sentences. Cardiovascular: Slightly tachycardic with regular rhythm, without murmur, gallop or rub. No pedal edema. Gastrointestinal: Abdomen flat and non-tender without guarding or rebound. Bowel sounds normoactive. Skin: Warm and dry. Neurological: Grossly nonfocal. Alert and oriented 3. Psychological: Alert and oriented. Speech appropriate, linear and logical. Behavior appropriate. Vital Signs Vital Signs Date Time Temp Pulse Resp B/P Pulse Ox O2 Delivery O2 Flow Rate FiO2 12/23/16 16:54 96 18 118/56 94 Room Air 12/23/16 15:03 87 22 95 Room Air 12/23/16 12:08 36.9 101 22 139/71 95 Room Air Tachycardia, tachypnea Interpretation & Diagnostics Lab Results Interpretation Result Diagram: 12/23/16 1344 12/23/16 1344 Test 12/23/16 12:52 12/23/16 13:42 12/23/16 13:44 Hold Purple Top Tube Received (Received) Hold Blue Top Tube Received (Received) Hold [place] Top Tube Received (Received) Hold Rahman Top Tube Received (Received) Hold Urine Received (Received) White Blood Count 10.7th/mm3 (3.8-10.1) Red Blood Count 4.60mil/mm3 (3.90-5.20) Hemoglobin 12.2g/dL (12.0-15.6) Hematocrit 37.9% (35.0-46.0) Mean Corpuscular Volume 82.4fL (81-100) Mean Corpuscular Hemoglobin 26.5pg (27.0-35.0) Mean Corpuscular Hemoglobin Concent 32.2% (32.0-37.0) Red Cell Distribution Width 14.7% (12.3-15.4) Platelet Count 227bil/L (150-400) Neutrophils (%) (Auto) 75.2% (40-74) Lymphocytes (%) (Auto) 12.1% (14-46) Monocytes (%) (Auto) 11.4% (4-12) Eosinophils (%) (Auto) 0% (0-5) Basophils (%) (Auto) 0.2% (0-3) Prothrombin Time 27.4sec (8.1-12.5) Prothromb Time International Ratio 2.51ratio Urine Color Bloody (YELLOW) Urine Appearance Cloudy (CLEAR,HAZY) Urine pH 7.5 (5.0-8.0) Urine Specific [place] 1.020 (1.003-1.035) Urine Protein 100mg/dL (NEG,TRACE) Urine Glucose (UA) Negativemg/dL (NEGATIVE) Urine Ketones Negativemg/dL (NEGATIVE) Urine Occult Blood Moderate (NEGATIVE) Urine Nitrite Negative (NEGATIVE) Urine Bilirubin Negative (NEGATIVE) Urine Urobilinogen Normalmg/dL (NORMAL) Urine Leukocyte Esterase Trace (NEGATIVE) Urine RBC Packed/hpf (0-2) Urine WBC 0-5/hpf (0-5) Urine Epithelial Cells Few/hpf (NONE-MOD) Urine Crystals None seen (NONE SEEN) Urine Bacteria Few/hpf (NONE-FEW) Urine Hyaline Casts None/lpf (NONE) Urine Granular Casts None seen (NONE SEEN) Urine Waxy Casts None seen (NONE SEEN) Urine Red Blood Cell Casts None seen (NONE SEEN) Urine White Blood Cell Casts None seen (NONE SEEN) Urine Mucus None seen (None Seen) Urine Trichomonas None seen (NONE SEEN) Urine Yeast None (NONE SEEN) Urinalysis Comment None Urine Culture Reflexed Indicated Sodium Level 140mEq/L (134-144) Potassium Level 3.3mEq/L (3.5-5.2) Chloride Level 104mEq/L (97-108) Carbon Dioxide Level 18mmol/L (18-29) Blood Urea Nitrogen 8mg/dL (6-20) Creatinine 0.81mg/dL (0.57-1.00) Estimat Glomerular Filtration Rate 115mL/min (>59) Glucose Level 189mg/dL (60-99) Calcium Level 9.2mg/dL (8.5-10.1) Magnesium Level 1.9mg/dL (1.6-2.6) Total Bilirubin 0.2mg/dL (0.0-1.2) Aspartate Amino Transf (AST/SGOT) 25U/L (0-50) Alanine Aminotransferase (ALT/SGPT) 24U/L (0-32) Alkaline Phosphatase 131U/L (25-150) Troponin T < 0.010ug/L (0.0-0.011) Total Protein 7.3g/dL (6.4-8.4) Albumin 4.1g/dL (3.4-5.0) ECG Interpretation ECG Interpretation: Sinus rhythm with a rate of 86 and regular. Prolonged QT interval with QTC equal to 589. Negative for ischemic changes. Time: 14:02 Interpreted by: ED physician (Dr. Parker) Re-Eval/Medical Decision Med Decision/Clinical Course 36-year-old female history of PE, A. fib, asthma, hypertension, bipolar, anxiety , viral myalgia, anticoagulated on Coumadin and recent kidney stone with stent placement presents to department for worsening shortness of breath. States that she "cannot walk 3 steps without getting out of breath" States she was seen here last night for similar symptoms complains of left flank pain additionally. Diagnosis in this department last night with asthma exacerbation, some concern of x-ray for a CHF pattern. However BMP was normal. Discharged with prednisone. Physical examination reveals a morbidly obese patient in mild distress lying on the gurney. Wheezes are audible, but on auscultation lungs appear to be clear wheezing appears to be stridorous. Heart tones are normal, negative leg swelling, no signs of DVT. CBC, CMP, troponin are drawn. EKG is ordered. CT chest pulmonary angiogram is ordered as well as a CT KUB. Treatment in this department was initiated with normal saline, Dilaudid, DuoNeb and albuterol. Pain improves but dyspnea responds poorly to DuoNeb and albuterol. Patient continues to feel quite short of breath. CBC, CMP, troponin are normal. EKG reveals QTC prolongation, negative for signs of ischemia. CT chest pulmonary angiogram reveals no PE or indication of CHF, pneumonia. KUB is negative for hydronephrosis, ureter obstruction. Stent in place. No indication of nephrolithiasis. Urinalysis reveals hematuria, negative for leukocyte esterase, nitrates, white blood cells. At this point we are reassured against ACS, CHF, PE, pneumonia, pleural effusion , pneumothorax, anemia, sepsis as causes of shortness of breath. Flank pain appears to be expected sequelae of nephrolithiasis and stent placement with no indication of abscess or hydronephrosis. I discussed the case with Dr. Abel, who the patient had consulted with prior to presenting to the emergency department. He is reassured by test results states that the patient needs a echocardiogram. Discussed findings with the patient, she is extremely hesitant to return home as her symptoms appear to be worsening despite treatment in the emergency department. She wishes to be admitted for expedited echocardiogram. I discussed this with Dr. Parker, who has met with and examined the patient. He feels this is reasonable. Hospitalist is consulted. Dr. Samuel excepts admission and the patient is transferred to the floor in stable condition Consultation #1: Referral / Consult Name: Julian Abel MD Consulted With: Cardiology Call Returned at: 17:49 Note: Discussed case with Dr. Abel, who is familiar with the patient as she contacted him earlier in the day. He states that she said she could not walk across the room without getting short of breath and he felt appropriate she be seen in the emergency department. After reviewing today's results, he believes that she she needs an echocardiogram. Consultation #2: Referral / Consult Name: Indy Borjas DO Brand Specialist: Accepts admit Counseled Regarding: Diagnosis, Lab results, Need for admission Discharge & Departure Primary Impression: Respiratory distress Disposition: ADMITTED TO HOSPITAL Discharge Condition All VS Reviewed: Yes Condition: Stable Referrals: Tre Baltazar MD (PCP) EDSupervising Provider for APC: Adam Parker MD Attending Statement I saw and evaluated the patient in conjunction with the PA. I agree with the plan and findings as documented above. In brief, 36-year-old female presenting to the ED for evaluation of worsening shortness of breath. Patient is morbidly obese and has mildly labored respirations. Good peripheral perfusion. RRR. Workup as per above. Despite reassuring results, patient is having difficulty ambulating without significant respiratory distress. Plan admission as per above for further management and evaluation, likely echocardiogram. Patient agreeable to plan as stated, no further questions. Adam Parker MD Dec 23, 2016 12:52 Myron Campos PA-C Dec 23, 2016 14:18
[2016-12-23] MEDS ORDERED: Ondansetron 2 mg/mL 2 mL Inj IVPUSH ONE (13:40)
[2016-12-23 13:47] LABS: BASOPHILS % (AUTO) 0.2 % (0-3); EOSINOPHILS % (AUTO) 0 % (0-5); MONOCYTES % (AUTO) 11.4 % (4-12); Mean Corpuscular Hemoglobin 26.5 pg (27.0-35.0); Mean Corpuscular Volume 82.4 fL (81-100); NEUTROPHILS % (AUTO) 75.2 % (40-74); Platelet Count 227 bil/L (150-400)
[2016-12-23 13:52] LABS: INR 2.51 ratio
[2016-12-23 13:59] LABS: TROPONIN T < 0.010 ug/L (0.0-0.011)
[2016-12-23] MEDS ORDERED: Albuterol 2.5 mg/3 mL Inhalation Solution NEB ONE (14:00)
[2016-12-23] MEDS ORDERED: Albuterol-Ipratropium 3 mL Inhalation Solution NEB ONE (14:00)
[2016-12-23 14:02] LABS: APPEARANCE,URINE CLOUDY (CLEAR,HAZY); COLOR,URINE BLOODY (YELLOW); OCCULT BLOOD,URINE MODERATE (NEGATIVE); PH,URINE 7.5 (5.0-8.0); UROBILINOGEN,URINE NORMAL (NORMAL)
[2016-12-23] MEDS ORDERED: diphenhydrAMINE 50 mg Capsule PO ONE (14:25)
[2016-12-23] MEDS: HYDROmorphone 0.5 mg/0.5 mL iSecure Syringe IVPUSH PRN ×4 (14:34→16:52)
[2016-12-23 15:03] VITALS: PULSE 87; RESP 22; O2SAT 95
--- NOTE | 2016-12-23 16:12 | DRSVH ---
PROCEDURE: CT KUB ([id number]) INDICATIONS: left flank pain TECHNIQUE: Noncontrast 5 mm thick sections acquired from the diaphragms to the symphysis. 5 mm thick coronal an d sagittal reformats were then performed. For radiation dose reduction, the following was used: aut omated exposure control, adjustment of mA and/or kV according to patient size. COMPARISON: [facility], CT, CT ANGIO CHEST PE, 12/23/2016, 14:35. [facility] , CT, CT KUB, 10/11/2016, 14:06. FINDINGS: Image quality: Excellent. Lung bases: Lung bases are clear. Heart size is normal. Urinary system: Both kidneys are normal in size. No kidney stones. A double-J ureteral stent is pr esent within the left renal collecting system. There is a 4 mm diameter calculus adjacent to the sten t within the distal ureter (series 5, image 83). No hydronephrosis or perinephric fat stranding. Bot h ureters appear non-dilated throughout their expected courses. Bladder wall thickness is normal; no calcified bladder stones. Other solid organs: Liver and spleen are normal in size. Gallbladder is surgically absent. Pancrea s is normal in contours. No adrenal nodules. Peritoneum and bowel: Unenhanced bowel loops demonstrate normal wall thickness and caliber. The appe ndix is thin walled and gas filled. No free fluid or air. Nodes and vessels: No retroperitoneal or mesenteric adenopathy by size criteria. Aorta and inferior vena cava are normal in caliber. Abdominal wall: No ventral hernias. Pelvis: No free pelvic fluid. No inguinal hernias or adenopathy. Bones: No suspicious bony lesions. No vertebral body compression fractures. IMPRESSION: 1. No hydronephrosis, nephrolithiasis, or hydroureter. A 4 mm calculus is present within the distal l eft ureter adjacent to the ureteral stent. 2. Normal appendix. Dictated by: Torri Dietrich M.D. on 12/23/2016 at 16:06 Approved by: Torri Dietrich M.D. on 12/23/2016 at 16:11
--- NOTE | 2016-12-23 16:16 | DRSVH ---
PROCEDURE: CT ANGIO CHEST PULMONARY EMBOLISM ([id number]) INDICATIONS: shortness of breath TECHNIQUE: After the administration of intravenous contrast, 2 mm thick sections acquired from the pulmonary api jose elias to the posterior costophrenic angles. 3-dimensional maximum intensity projection (MIP) coronal a nd sagittal reformats were then acquired through the thorax. For radiation dose reduction, the follo wing was used: automated exposure control, adjustment of mA and/or kV according to patient size. COMPARISON: None. FINDINGS: Image quality: This is a limited study given patient's large body habitus. Pulmonary arteries: Pulmonary arteries are normal in size, and demonstrate no intraluminal filling d efects to suggest central pulmonary embolism. Lungs and pleura: Lungs are clear. No pleural effusions or pneumothorax. Central and peripheral ai rways are patent. Mediastinum: Heart size is normal, without pericardial effusion. No mediastinal or hilar adenopathy . Thoracic aorta is normal in caliber and enhancement. Esophagus is normal in caliber, without hiat al hernia. Bones and chest wall: No suspicious bony lesions. Ribs and thoracic spine appear intact throughout. Thyroid gland is unremarkable. No axillary or supraclavicular adenopathy. Abdomen: Visualized upper abdominal solid organs appear normal in the early arterial phase of enhanc ement. IMPRESSION: 1. Limited study. No pulmonary embolus within the central pulmonary arteries. 2. No findings to explain shortness of breath. Dictated by: Torri Dietrich M.D. on 12/23/2016 at 16:11 Approved by: Torri Dietrich M.D. on 12/23/2016 at 16:14
[2016-12-23 16:54] VITALS: BP 118/56; PULSE 96; RESP 18; O2SAT 94
[2016-12-23] MEDS ORDERED: OXYC-466 PO (18:20)
[2016-12-23] MEDS ORDERED: TOPI-31 PO (18:25)
[2016-12-23] MEDS ORDERED: LURA120T PO (18:39)
[2016-12-23] MEDS ORDERED: WARF5TAB7 PO ×3 (18:43)
[2016-12-23] MEDS ORDERED: MetoCLOpramide 5 mg/mL 2 mL Inj IM ONE (19:30)
[2016-12-23] MEDS ORDERED: Alum-Mag Hydrox-Simeth 30 mL Suspension PO PRN ×2 (20:15→20:20)
[2016-12-23] MEDS ORDERED: Polyethylene Glycol (PEG) 17 Gm Powder PO PRN (20:20)
[2016-12-23] MEDS ORDERED: Ondansetron 2 mg/mL 2 mL Inj IVPUSH PRN (20:20)
[2016-12-23 20:35] VITALS: BP 124/67; PULSE 85; RESP 16; O2SAT 93
[2016-12-23 20:55] VITALS: PULSE 88
--- NOTE | 2016-12-23 20:59 | PCM.HPMED ---
Subjective Date of Service Dec 23, 2016 Primary Provider: Admitting Physician: Indy Borjas DO Primary Care Physician: Tre Baltazar MD Attending Physician: Indy Borjas DO Admit Status: From the Emergency Department Chief Complaint: Shortness of breath and wheezing History of Present Illness: Cynthia is a morbidly obese 36-year-old female with history of bilateral PE, atrial fibrillation on Coumadin and Flecainide, Asthma, HTN, and recent left ureteral stent placement on 12/21/16 who presented to the [facility] ED with 1 week of ongoing shortness of breath and wheezing. She reports that since her ureteral stent placement on 12/21 her breathing has been getting progressively worse. She did not try to use her albuterol inhaler as she says it never works, and no body position seems to improve her breathing status. She reports some mid-chest/ rib pain with breathing but that it does not radiate anywhere. She also endorses some nausea, wheezing and left flank pain but denies any productive cough, fever/chills, hemoptysis, recent sick contacts, calf pain/ redness/tenderness. Of note, she was seen in the ED yesterday (12/22) for similar complaints and work up revealed an unremarkable blood panel (CBC, CMP, troponin, magnesium) but did show a supratherapeutic INR. She received steroids and nebulizer treatment with improvement. Her chest XR was read as an acute CHF exacerbation but the patient denies any history of CHF. Review of Systems: A comprehensive review of systems was performed and negative except as in above HPI. Allergies Coded Allergies: azithromycin (Verified Allergy, Severe, causes a-fib, 09/23/16) White (Verified Allergy, Intermediate, Rash, 09/23/16) citric acid (Verified Allergy, Intermediate, Rash, 09/23/16) hydrocodone bitartrate (Verified Allergy, Mild, GI, 09/23/16) Home Medications Scheduled Baclofen (Baclofen) 10 Mg Tablet 20 MG PO TID Flecainide Acetate (Flecainide Acetate) 100 Mg Tablet 100 MG PO BIDWM Gabapentin (Gabapentin) 600 Mg Tablet 1,200 MG PO TID Hydrochlorothiazide (Hydrochlorothiazide) 25 Mg Tablet 25 MG PO QAM Levothyroxine (Levothyroxine) 100 Mcg Tablet 100 MCG PO QAM Lurasidone (Latuda) 120 Mg Tablet 120 MG PO HS Medroxyprogesterone Acetate (Depo-Provera) 150 Mg/1 Ml Syringe 150 MG IM [id number] Nystatin (Nystatin) 1 Each Powder.ea. 1 APPLIC TOP BID Pantoprazole DR (Pantoprazole DR) 20 Mg Tablet.dr 20 MG PO QAM Potassium Chloride (Potassium Chloride) 20 Meq Tab.er.prt 20 MEQ PO BIDWM TAKE WITH FOOD Topiramate (Topiramate) 100 Mg Tablet 200 MG PO BID Verapamil ER (Verapamil ER) 240 Mg Tber 240 MG PO QAM Warfarin Sodium (Warfarin Sodium) 5 Mg Tablet 5 MG PO TUESDAYS Warfarin Sodium (Warfarin Sodium) 5 Mg Tablet 12.5 MG PO WEDNESDAYS Warfarin Sodium (Warfarin Sodium) 5 Mg Tablet 10 MG PO DAILY EXCEPT SAT/SAT Scheduled PRN Albuterol HFA (Proair HFA) 8.5 Gm Hfa.aer.ad 2 PUFFS INHALATION Q4H PRN PRN For Shortness of Breath Albuterol Neb Soln (Albuterol Neb Soln) 2.5 Mg/3 Ml Vial.neb 2.5 MG INHALATION Q4H PRN PRN For Wheezing Clonazepam (Clonazepam) 1 Mg Tablet 1-2 MG PO TID PRN PRN For Anxiety or Agitation Dihydroergotamine Mesylate (Migranal) 1 Ml Holland.pump 1 ML NS q15 mins x2 BID PRN PRN mirgane Ondansetron (Ondansetron) 8 Mg Tablet 8 MG PO TID PRN PRN For Nausea Sumatriptan Succinate (Sumatriptan Succinate) 100 Mg Tablet 100 MG PO DIRECTED PRN PRN migrane one tablet with onset of migrane, may repeat in 2 hrs. max dose 2 tabs in 24hrs diphenhydrAMINE HCl (Benadryl) 25 Mg Capsule 25-50 MG PO DAILY PRN PRN For Itching oxyCODONE-Acetaminophen 10-325 mg (oxyCODONE-Acetaminophen 10-325 mg) 1 Each Tablet 1 TABLET PO Q6H PRN PRN For Pain PMH Fibromyalgia Bipolar Depression Prior psychiatric admissions for suicidal ideations and prior medication overdose Anxiety Kidney Stones s/p left ureteral stent 12/21/2016 History of esophageal stricture requiring dilation 10+ years ago Chronic back pain Hypothyroid Asthma Paroxysmal Afib 05/2013 - on daily flecainide, warfarin History of SVT May 2010 Bilateral PE 08/2016 Hypertension SRI on CPAP Melanoma s/p resection Surgical History Abscess removed from uterus Adenoidectomy Ear tubes Cholecystectomy Tonsillectomy Family History CAD, CHF in mother and maternal grandfather Social History Hx Alcohol Use: No Hx Substance Use: Yes (prior hx of- not since 1999) Hx Tobacco Use: No Smoking Status: Former Smoker Living Arrangement: with Family Exam Vital Signs Vital Sign - Last Date Time Temp Pulse Resp B/P Pulse Ox O2 Delivery O2 Flow Rate FiO2 12/23/16 20:35 36.7 85 16 124/67 93 Room Air Exam General: Morbidly obese female laying in bed in no acute distress, conversing appropriately without desaturating HEENT: NCAT, PERRLA, EOMI. Membranes pink and moist, no exudates. Neck: No JVD, thyromegaly, although exam is difficult due to body habitus. CV: RRR, no murmurs/rubs/gallops. Distal pulses intact bilaterally. Pulm: Audibly wheezing on expiration during conversation. Diffuse wheezing throughout all lung kaur. Poor air movement bilaterally, poor inspiratory effort but no rales/rhonchi. Abd: Obese. Tenderness toward left flank area but no signs of bleeding or areas of fluctuance noted. Bowel sounds present throughout. Extremities: Bilateral LE edema up to mid-tibial area. No cyanosis, clubbing. Neuro: A&Ox3. CN 2-12 intact, muscle strength 5/5 in all extremities. No focal deficits. Psych: Flat mood and affect, interacts appropriately. Lab and Diagnostics Result Diagram: 12/23/16 1344 12/23/16 1344 Microbiology Urine culture, pending X-Rays, CTs and MRIs CT Angio 12/23/16 IMPRESSION: 1. Limited study. No pulmonary embolus within the central pulmonary arteries. 2. No findings to explain shortness of breath. Dictated by: Torri Dietrich M.D. on 12/23/2016 at 16:11 Approved by: Torri Dietrich M.D. on 12/23/2016 at 16:14 CT KUB 12/23/16 IMPRESSION: 1. No hydronephrosis, nephrolithiasis, or hydroureter. A 4 mm calculus is present within the distal left ureter adjacent to the ureteral stent. 2. Normal appendix. Dictated by: Torri Dietrich M.D. on 12/23/2016 at 16:06 Approved by: Torri Dietrich M.D. on 12/23/2016 at 16:11 12-lead ECG ED EKG: Sinus rhythm with a rate of 86 and regular. Prolonged QT interval with QTC equal to 589. Negative for ischemic changes. Assessment & Plan Cynthia is a morbidly obese 36-year-old female with history of bilateral PE, atrial fibrillation on Coumadin and Flecainide, Asthma, HTN, and recent left ureteral stent placement on 12/21/16 who presented to the [facility] ED with ongoing shortness of breath and wheezing. Shortness of Breath, present on admission. Acute. Ongoing. - Likely a combination of obesity hypoventilation, asthma history and respiratory depressive medications - EKG unremarkable, infectious etiology unlikely (normal WBC, no CXR consolidation, no symptoms) - PE ruled out with negative CT Angio - CXR 12/22 suggestive of CHF exacerbation, patient does not have CHF history - Last ECHO 08/23/16 revealed mild MR with elevated pulmonary pressures - Echocardiogram ordered - Continue home inhaler/nebulizer regimen as needed History of Paroxysmal Atrial Fibrillation, present on admisison. Chronic. - Patient in NSR at this time - Continue Verapamil, Flecainide, Warfarin - Monitor on telemetry Left Flank Pain, present on admission. Acute. Ongoing. - likely due to kidney stones, recent left ureteral stent on 12/21 - Tender to palpation but no signs of bleeding, no overt CVA tenderness - UA with reflex culture pending - Continue home oxycodone dosage Hypertension, present on admission. Chronic. - Continue HCTZ 25mg daily Hypothyroidism, present on admission. Chronic. - Outpatient labs 11/20/16 reveal TSH slightly elevated at 5.4 - Continue 100mcg Levothyroxine daily Morbid Obesity, present on admission. Chronic. - BMI ~64 - Nutritional consult offered - Prior admissions have had multiple elevated blood glucoses but no diagnosis of Diabetes - A1C ordered Depression/Bipolar, present on admission. Chronic. - Continue Latuda Anxiety, present on admission. Chronic. - Continue clonazepam; try to minimize use to minimize respiratory depression SRI, present on admission. Chronic. - Continue CPAP usage Acetaminophen for headache, mild pain, fever as necessary. Bowel regimen as needed. Zofran held due to prolonged QT. Patient Status: Patient is admitted under observational status with likely LOS < 2 midnights due to presenting symptoms, medical work up and treatment plan. GI Prophylaxis: H2 pato VTE Prophylaxis: Sub-Q Heparin (Unfractionated) VTE Mechanical Devices: Intermittant Pneumatic CD Resuscitation Status: CPR: Attempt Resuscitation Attending Statement The patient was seen and examined together with house staff on 12/23/2016 and I agree with the history, exam and plan as outlined in the note above. Martin Crooks DO Dec 23, 2016 20:59 Indy Borjas DO Dec 24, 2016 02:45
--- NOTE | 2016-12-23 21:48 | PCM.PHAPRO ---
Progress Date of Service: Dec 23, 2016 Shortness of breath and wheezing Warfarin Management per Pharmacy: Indication: For thrombosis prophylaxis as patient has history of bilateral PE as well as stroke prophylaxis as patient has atrial fibrillation Goal INR: 2-3 Home Dose: 5 mg Saturday, 7.5 mg Saturday, 10 mg all other days Labs: Hgb/Hct: 12.2/37.9 Plt: 227 INR: 2.51 Drug Interactions: No new medications added Recommendation: Warfarin 10 mg PO x 1 today INR ordered daily x 7 days Pharmacy to continue to monitor and adjust dose as needed. Thank You, Althea Riley, Pharm D. Althea Riley Dec 23, 2016 21:48
[2016-12-23] MEDS ORDERED: Potassium Chloride 20 mEq SR Tablet PO ONE (22:35)
[2016-12-23] MEDS: Miconazole 70 Gm Powder TOPICAL SCH (23:08)
[2016-12-23] MEDS: Potassium Chloride 20 mEq SR Tablet PO SCH (23:12)
[2016-12-23] MEDS: oxyCODONE-Acetamin 10-325 mg Tablet PO PRN (23:13)
[2016-12-24] VITALS (8 sets, daily range): BP systolic 100–125; BP diastolic 59–77; PULSE 66–85; RESP 16–24; O2SAT 96–100
[2016-12-24] MEDS ORDERED: Heparin 5,000 Unit/mL Inj SUBQ SCH (00:30)
--- NOTE | 2016-12-24 02:22 | NUR ---
Admit Patient arrived to floor from ED at 2019. Patient A&OX3. Patient sounds wheezy. Vitals stable. Patient complains of chest pain 11/12. Report given by Teto GAO.
[2016-12-24] MEDS: oxyCODONE-Acetamin 10-325 mg Tablet PO PRN ×5 (05:13→21:55)
[2016-12-24 06:42] LABS: BASOPHILS % (AUTO) 0.2 % (0-3); MONOCYTES % (AUTO) 11.6 % (4-12); Mean Corpuscular Hemoglobin 26.3 pg (27.0-35.0); Mean Corpuscular Volume 83.8 fL (81-100); NEUTROPHILS % (AUTO) 52.4 % (40-74); Platelet Count 196 bil/L (150-400)
[2016-12-24] MEDS ORDERED: Albuterol 2.5 mg/3 mL Inhalation Solution NEB PRN ×2 (07:00)
[2016-12-24 07:03] LABS: INR 2.15 ratio
[2016-12-24] MEDS: Miconazole 70 Gm Powder TOPICAL SCH ×2 (08:29→19:54)
[2016-12-24] MEDS: Verapamil SR 240 mg ER12 Tablet PO SCH (08:30)
[2016-12-24] MEDS: Potassium Chloride 20 mEq SR Tablet PO SCH ×2 (08:30→18:03)
--- NOTE | 2016-12-24 10:38 | NUR ---
Activity, hematuria Pt. has hematuria, she reported, "Been like this since I had a stent (L. Ureteral) put in a week ago." Pt. is ambulatory and independent in room. She walked in the hallway once with mom and RN. No assistive device needed for balance. She was wheezy during her walk. She declined Nebulizer treatment because, "they don't work." PRN Percocet 10/325 is effective for reducing L. flank pain from 8/10 to 5/10.
--- NOTE | 2016-12-24 11:10 | DRSVH ---
[facility] [address] [place] [address] Echocardiogram Report Name: ELVIA FERGUSON KStudy Date: 12/24/2016 Height: 65 in Hospital Exam Location: [facility] Weight: 384 lb Gender: Female BSA: 2.6 m2 : 1980 Age: 36 yrs BP: 100/59 mmHg Reason For Study: SOB Ordering Physician: MARITAIST [facility] Performed By: [facility] Staff Referring Physician: Benito Mccauley Interpretation Summary 1) Normal left ventricular thickness, size, wall motion, and systolic function (EF 60-65%). 2) Normal right ventricular size and function. 3) No significant valvular abnormalities. 4) The right ventricular systolic pressure is estimated at 42 mmHg assuming a right atrial pressure of 15 mm Hg. 5) Compared to the Echo done 08/23/2016, no significant change. Procedure: A two-dimensional transthoracic echocardiogram with color flow and Doppler was performed. The study quality was technically adequate. Comparison is made with the echocardiogram of 08/23/16. The patient was in normal sinus rhythm during the exam. Left Ventricle: The left ventricle is normal in size, wall thickness, and systolic function without any focal wall motion abnormalities. The ejection fraction is estimated to be 60-65%. Assessment of diastolic parameters indicates normal left ventricular diastolic function and normal filling pressures. Right Ventricle: The right ventricle is normal in size, thickness and function. Atria: Both atria are normal in size. The interatrial septum is intact with no evidence for an atrial septal defect. Mitral Valve: The mitral valve leaflets appear thickened, but open well. There is trace mitral regurgitation. Aortic Valve: The aortic valve is grossly normal. The aortic valve opens well. There is no aortic valve stenosis. There is trace aortic regurgitation. Tricuspid Valve: The tricuspid valve is not well visualized, but is grossly normal. There is trace tricuspid regurgitation. The right ventricular systolic pressure is estimated at 42 mmHg assuming a right atrial pressure of 15 mm Hg. Pulmonic Valve: The pulmonic valve is not well seen, but is grossly normal. There is trace pulmonic regurgitation. Great Vessels: The aortic root is normal size. The ascending aorta is normal in size. The pulmonary artery is normal size. The IVC is dilated (diameter is greater than 2.1 cm) and it collapses less than 50% with a sniff. This suggests a high right atrial pressure of 15 mm Hg. Pericardium/ Pleura There is no pericardial effusion. There is no pleural effusion. MMode/2D Measurements & Calculations LVIDd: 5.3 cm RA long axis LVOT diam LVIDs: 3.4 cm LA A2 area: 18.2 cm FS: 35.7 % LA A4 area: 21.8 cm RA area AoV Opening IVSd: 0.90 cm LA length (vol): 6.2 cm LVPWd: 0.80 cm LA vol: 54.4 ml : 17.9 cm Ao root diam LA vol index RA vol : 46.0 ml asc Aorta RA Diam: 2.9 cm IVC diam: 2.4 cm : 17.6 mm2 LV amaya. diameter/BSA LV sys. diameter/BSA RVD1 (basal) TAPSE: 2.6 cm (cm/m^2): 2.0 (cm/m^2): 1.3 Doppler Measurements & Calculations Ao V2 max MV E max henrik MV E/A: 1.9 TR max henrik : 210.3 cm/sec : 199.2 cm/sec Med Peak E' Henrik : 261.6 cm/sec Ao max PG MV A max henrik TR max PG : 17.7 mmHg : 107.3 cm/sec E/E' med: 21.1 : 26.7 mmHg Ao mean PG MV P1/2t: 62.3 msec Lat Peak E' Henrik PA V2 max : 10.2 mmHg MVA(VTI): 1.7 cm2 : 123.4 cm/sec LVOT Max Henrik E/E' lat: 14.8 PA mean PG : 140.5 cm/sec E/e' average: 18.0 : 3.1 mmHg ROSE MARY(I,D): 2.2 cm sev ratio MV V2 mean MV P1/2t max henrik Ao V2 mean LV V1 max PG : 101.4 cm/sec : 151.1 cm/sec MV mean PG Ao V2 VTI: 39.2 cm LV V1 VTI MVA(P1/2t): 3.5 cm2 : 27.2 cm MV V2 VTI: 50.7 cm ROSE MARY(V,D): 2.1 cm2 MV dec time : 0.21 sec PA V2 mean ROSE MARY indexed to BSA : 82.9 cm/sec (cm^2/m^2): 0.85 PA pr(Accel) : 19.9 mmHg Reading Physician:11:06 AM
--- NOTE | 2016-12-24 11:44 | PCM.PHAPRO ---
Progress Date of Service: Dec 24, 2016 Warfarin Dosing Date Dec 24-Dec INR 2.51 2.15 INR change -0.36 Warf Dose 10 MG 10MG Najma Adkins PharmD Dec 24, 2016 11:44
--- NOTE | 2016-12-24 16:41 | PCM.PNMED ---
Subjective Date of Service Dec 24, 2016 Subjective Patient was seen and examined at bedside today. Patient denies any chest pain, nausea, vomiting, diarrhea. Patient states that she is improved however she still complains of shortness of breath with exertion. Overnight events: None Exam Vital Signs Vital Sign - Last Date Time Temp Pulse Resp B/P Pulse Ox O2 Delivery O2 Flow Rate FiO2 12/24/16 13:29 36.9 80 20 107/68 97 Room Air Intake and Output 12/23/16 12/23/16 12/24/16 Cumulative From/Thru 15:00 23:00 07:00 12/23/16 12:08 - 12/24/16 06:32 Intake Total 600 ml 600 ml Output Total 750 ml 750 ml Balance -150 ml -150 ml Intake Oral 600 ml 600 ml Output Urine Total 750 ml 750 ml # Voids 2 2 # Bowel Movements 0 0 Exam Physical Exam: GEN: Patient was awake, alert, responding appropriately to questions HEENT: Pupils equal round and reactive to light, extraocular eye muscles intact , Neck soft supple, trachea midline, nomocephalic/atraumatic CV: +S1/S2, regular rate and rhythm, mild systolic murmurs auscultated Respiratory: CTAB, no wheezes, rales, rhonchi GI: +bowel sounds x4, soft, compressible, nontender to palpation EXT: no clubbing, cyanosis, edema Neuro: Cranial nerves II-XII grossly intact Psych: mood and affect were appropriate IVs and Medications Medications Reviewed: Medications were reviewed in detail Lab and Diagnostics Result Diagram: 12/24/16 0512 12/24/16 0512 Microbiology Urine culture, pending X-Rays, CTs and MRIs CT Angio 12/23/16 IMPRESSION: 1. Limited study. No pulmonary embolus within the central pulmonary arteries. 2. No findings to explain shortness of breath. Dictated by: Torri Dietrich M.D. on 12/23/2016 at 16:11 Approved by: Torri Dietrich M.D. on 12/23/2016 at 16:14 CT KUB 12/23/16 IMPRESSION: 1. No hydronephrosis, nephrolithiasis, or hydroureter. A 4 mm calculus is present within the distal left ureter adjacent to the ureteral stent. 2. Normal appendix. Dictated by: Torri Dietrich M.D. on 12/23/2016 at 16:06 Approved by: Torri Dietrich M.D. on 12/23/2016 at 16:11 12-lead ECG ED EKG: Sinus rhythm with a rate of 86 and regular. Prolonged QT interval with QTC equal to 589. Negative for ischemic changes. Cardiac Echo Impressions Echocardiogram Report Interpretation Summary 1) Normal left ventricular thickness, size, wall motion, and systolic function (EF 60-65%). 2) Normal right ventricular size and function. 3) No significant valvular abnormalities. 4) The right ventricular systolic pressure is estimated at 42 mmHg assuming a right atrial pressure of 15 mm Hg. 5) Compared to the Echo done 08/23/2016, no significant change. Reading Physician:11:06 AM Assessment & Plan Cynthia is a morbidly obese 36-year-old female with history of bilateral PE, atrial fibrillation on Coumadin and Flecainide, Asthma, HTN, and recent left ureteral stent placement on 12/21/16 who presented to the [facility] ED with ongoing shortness of breath and wheezing. Shortness of Breath, present on admission. Acute. Ongoing. - Likely a combination of obesity hypoventilation, asthma history and respiratory depressive medications - EKG unremarkable, infectious etiology unlikely (normal WBC, no CXR consolidation, no symptoms) - PE ruled out with negative CT Angio - CXR 12/22 suggestive of CHF exacerbation, patient does not have CHF history - Last ECHO 08/23/16 revealed mild MR with elevated pulmonary pressures - Echocardiogram results EF of 60-65% no significant changes from previous echo on 08/23/2016 - Continue home inhaler/nebulizer regimen as needed History of Paroxysmal Atrial Fibrillation, present on admisison. Chronic. - Patient in NSR at this time - Continue Verapamil, Flecainide, Warfarin - Monitor on telemetry Left Flank Pain, present on admission. Acute. Ongoing. - likely due to kidney stones, recent left ureteral stent on 12/21 - Tender to palpation but no signs of bleeding, no overt CVA tenderness - UA with reflex culture pending - Continue home oxycodone dosage Hypertension, present on admission. Chronic. - Continue HCTZ 25mg daily Hypothyroidism, present on admission. Chronic. - Outpatient labs 11/20/16 reveal TSH slightly elevated at 5.4 -TSH currently 1.160 (within normal limits) - Continue 100mcg Levothyroxine daily Morbid Obesity, present on admission. Chronic. - BMI ~64 - Nutritional consult offered - Prior admissions have had multiple elevated blood glucoses but no diagnosis of Diabetes - A1C ordered Depression/Bipolar, present on admission. Chronic. - Continue Latuda Anxiety, present on admission. Chronic. - Continue clonazepam; try to minimize use to minimize respiratory depression RSI, present on admission. Chronic. - Continue CPAP usage Acetaminophen for headache, mild pain, fever as necessary. Bowel regimen as needed. Zofran held due to prolonged QT. Disposition: The patient still complains of shortness of breath will have physical therapy evaluate the patient at this time. Much of the patient's shortness of breath could potentially be secondary to obesity hypoventilation syndrome. The patient is improving we will continue to monitor and treat accordinglyBrandon1 GI Prophylaxis: H2 pato VTE Prophylaxis: Sub-Q Heparin (Unfractionated) VTE Mechanical Devices: Intermittant Pneumatic CD Resuscitation Status: CPR: Attempt Resuscitation Fannie Newsome DO Dec 24, 2016 16:41
--- NOTE | 2016-12-24 16:43 | NUR ---
Social Work-initial assessment/readiness for discharge/ multidisciplinary rounds: Data:See initial assessment. Pt is 36 y/o female who was admitted on 12/23/16 for dyspnea per H&P. Pt's insurance is [employer] and PCP is Tre Baltazar MD. EMR reviewed. SW met with pt and Shmuel at bedside, SW role explained. Pt is alert and oriented x3. Pt resides at home with her where she remains independent with ADLS. Pt drives and does not use any DME. Pt has no HH or SNF history. Pt has no [place] [facility] care insurance or [place] benefits. SW discussed DPOA/ advanced directive, pt declining any information. Pt discussed in multidisciplinary rounds, no concerns from MD aquaculture and fisheries professor regarding pt's capacity for self care, per RN pt has been up independent in her room. SW provided pt with discharge planning checklist and encouraged her to call with any questions,phone number provided on white board in room. Pt's to provide transport home. No anticipated discharge needs. SW will continue to follow if needs arise. Assessment:pt who is independent at baseline. Plan:Pt to discharge home when medically stable via POV. No anticipated discharge needs. SW will continue to follow if needs arise. COY Rooney Addendum: 12/24/16 at 1644 by ARIEL MORRIS Amended: Links added.
[2016-12-25] VITALS (8 sets, daily range): BP systolic 97–106; BP diastolic 64–72; PULSE 67–78; RESP 20–24; O2SAT 94–96
[2016-12-25] MEDS: oxyCODONE-Acetamin 10-325 mg Tablet PO PRN ×5 (02:20→20:44)
--- NOTE | 2016-12-25 03:44 | NUR ---
Pain/activity Pt reporting generalized pain in legs and back 6-12/13 and has been taking Percocet 10/325 mg. Pt reports this to be effective. Pt wearing CPAP overnight and reports that the less she moves the better her breathing is. Pt noted to have wheezes but did not want prn neb tx. Antifungal powder applied to redness in groin. Pt on tele, SR 78.
[2016-12-25 06:49] LABS: INR 2.15 ratio
[2016-12-25 06:50] LABS: BASOPHILS % (AUTO) 0.6 % (0-3); EOSINOPHILS % (AUTO) 4.1 % (0-5); MONOCYTES % (AUTO) 11.9 % (4-12); Mean Corpuscular Hemoglobin 26.1 pg (27.0-35.0); Mean Corpuscular Volume 83.8 fL (81-100); NEUTROPHILS % (AUTO) 40.4 % (40-74); Platelet Count 207 bil/L (150-400)
[2016-12-25] MEDS: Verapamil SR 240 mg ER12 Tablet PO SCH (08:28)
[2016-12-25] MEDS: Potassium Chloride 20 mEq SR Tablet PO SCH ×2 (08:29→17:06)
[2016-12-25] MEDS: Miconazole 70 Gm Powder TOPICAL SCH ×2 (08:29→20:45)
--- NOTE | 2016-12-25 11:52 | PCM.PHAPRO ---
Progress Date of Service: Dec 25, 2016 Warfarin Dosing Date Dec 24-Dec 25-Dec INR 2.51 2.15 2.15 INR change -0.36 Warf Dose 10 MG 10MG 10MG Najma Adkins PharmD Dec 25, 2016 11:52
--- NOTE | 2016-12-25 13:52 | NUR ---
Evaluation completed. Suspect esophageal irregularity. Recommend GI consult (outpatient or inpatient). Please go to "Notes" then click on "Assessments and Notes" (bottom left corner of screen). Then select appropriate discipline tab on top of screen.
--- NOTE | 2016-12-25 17:23 | PCM.PNMED ---
Subjective Date of Service Dec 25, 2016 Subjective Patient was seen and examined at bedside today. Patient denies any nausea, vomiting, diarrhea. The patient does complain of central chest pain along the sternum and is still complaining of wheezing with walking. The patient does become short of breath while walking and states that her wheezing only happens when she is walking. The patient states that her symptoms have improved compared to when she was admitted. The patient also complains of some difficulty swallowing and she feels that sometimes this makes her "wheezes" worse. Overnight events: None Exam Vital Signs Vital Sign - Last Date Time Temp Pulse Resp B/P Pulse Ox O2 Delivery O2 Flow Rate FiO2 12/25/16 16:59 CPAP/BIPAP 12/25/16 16:31 36.8 68 22 106/72 96 Intake and Output 12/24/16 12/24/16 12/25/16 Cumulative From/Thru 15:00 23:00 07:00 12/23/16 12:08 - 12/25/16 06:43 Intake Total 1420 ml 915 ml 2935 ml Output Total 300 ml 1050 ml Balance 1120 ml 915 ml 1885 ml Intake Oral 1420 ml 915 ml 2935 ml Output Urine Total 300 ml 1050 ml # Voids 5 3 10 # Bowel Movements 1 1 2 Exam Physical Exam: GEN: Patient was awake, alert, responding appropriately to questions HEENT: Pupils equal round and reactive to light, extraocular eye muscles intact , Neck soft supple, trachea midline, nomocephalic/atraumatic, positive stridor with activity CV: +S1/S2, regular rate and rhythm, no murmurs auscultated Respiratory: CTAB, no wheezes, rales, rhonchi GI: +bowel sounds x4, soft, compressible, nontender to palpation EXT: no clubbing, cyanosis, edema Neuro: Cranial nerves II-XII grossly intact Psych: mood and affect were appropriate IVs and Medications Medications Reviewed: Medications were reviewed in detail Lab and Diagnostics Result Diagram: 12/25/1660412/25/16604 Microbiology Urine culture, pending X-Rays, CTs and MRIs CT Angio 12/23/16 IMPRESSION: 1. Limited study. No pulmonary embolus within the central pulmonary arteries. 2. No findings to explain shortness of breath. Dictated by: Torri Dietrich M.D. on 12/23/2016 at 16:11 Approved by: Torri Dietrich M.D. on 12/23/2016 at 16:14 CT KUB 12/23/16 IMPRESSION: 1. No hydronephrosis, nephrolithiasis, or hydroureter. A 4 mm calculus is present within the distal left ureter adjacent to the ureteral stent. 2. Normal appendix. Dictated by: Torri Dietrich M.D. on 12/23/2016 at 16:06 Approved by: Torri Dietrich M.D. on 12/23/2016 at 16:11 12-lead ECG ED EKG: Sinus rhythm with a rate of 86 and regular. Prolonged QT interval with QTC equal to 589. Negative for ischemic changes. Cardiac Echo Impressions Echocardiogram Report Interpretation Summary 1) Normal left ventricular thickness, size, wall motion, and systolic function (EF 60-65%). 2) Normal right ventricular size and function. 3) No significant valvular abnormalities. 4) The right ventricular systolic pressure is estimated at 42 mmHg assuming a right atrial pressure of 15 mm Hg. 5) Compared to the Echo done 08/23/2016, no significant change. Reading Physician:11:06 AM Assessment & Plan Cynthia is a morbidly obese 36-year-old female with history of bilateral PE, atrial fibrillation on Coumadin and Flecainide, Asthma, HTN, and recent left ureteral stent placement on 12/21/16 who presented to the [facility] ED with ongoing shortness of breath and wheezing. Shortness of Breath, present on admission. Acute. Ongoing. - Possibly likely a combination of obesity hypoventilation, asthma history and respiratory depressive medications - EKG unremarkable, infectious etiology unlikely (normal WBC, no CXR consolidation, no symptoms) - PE ruled out with negative CT Angio - CXR 12/22 suggestive of CHF exacerbation, patient does not have CHF history - Last ECHO 08/23/16 revealed mild MR with elevated pulmonary pressures - Echocardiogram results 12/24/16 EF of 60-65% no significant changes from previous echo on 08/23/2016 - Continue home inhaler/nebulizer regimen as needed Possible laryngospasms versus esophageal spasms -Patient currently has stridor, not wheezes -Speech and swallow eval -Barium swallow test pending History of Paroxysmal Atrial Fibrillation, present on admisison. Chronic. - Patient in NSR at this time - Continue Verapamil, Flecainide, Warfarin - Monitor on telemetry Left Flank Pain, present on admission. Acute. Ongoing. - likely due to kidney stones, recent left ureteral stent on 12/21 - Tender to palpation but no signs of bleeding, no overt CVA tenderness - UA with reflex culture shows no growth - Continue home oxycodone dosage Hypertension, present on admission. Chronic. - Continue HCTZ 25mg daily Hypothyroidism, present on admission. Chronic. - Outpatient labs 11/20/16 reveal TSH slightly elevated at 5.4 -TSH currently 1.160 (within normal limits) - Continue 100mcg Levothyroxine daily Morbid Obesity, present on admission. Chronic. - BMI ~64 - Nutritional consult offered - Prior admissions have had multiple elevated blood glucoses but no diagnosis of Diabetes - A1C 5.6 (within normal limits) Depression/Bipolar, present on admission. Chronic. - Continue Latuda Anxiety, present on admission. Chronic. - Continue clonazepam; try to minimize use to minimize respiratory depression SRI, present on admission. Chronic. - Continue CPAP usage Acetaminophen for headache, mild pain, fever as necessary. Bowel regimen as needed. Zofran held due to prolonged QT. Disposition: At this time the patient's "wheezes" seem to be more related to stridor. Patient will have a swallow and speech eval along with a barium swallow test. The patient may have laryngospasms and will need to be followed up with ENT. The patient is currently satting well and able to continue eating with no issues. Will consider contacting ENT for any recommendations or possible further testing that they may need should the barium swallow and speech eval are found to be negative. GI Prophylaxis: H2 pato VTE Prophylaxis: Sub-Q Heparin (Unfractionated) VTE Mechanical Devices: Intermittant Pneumatic CD Resuscitation Status: CPR: Attempt Resuscitation Fannie Newsome DO Dec 25, 2016 17:23
--- NOTE | 2016-12-25 19:17 | NUR ---
SOB/Wheezing Pt reports SOB in the AM with audible wheezing. Pt declines NEB treatments, states they do not work. MD in room to assess. Wheezing appears to come from upper airway. Swallow study ordered. XRay unable to take pt d/t obesity and pt inability for stand for prolonged periods of time. PULMONARY FUNCTION TECHNICIAN in room to perform study as possible. Reports that pt was supposed to have Esophageal stricture with dilation in August but did not get procedure. Pt also reports some difficulty swallowing some foods. Foods cut up for pt to help toleration. Later in shift all SOB was minimal to none, with no audible wheezing.
[2016-12-26] MEDS: oxyCODONE-Acetamin 10-325 mg Tablet PO PRN ×5 (01:00→21:51)
[2016-12-26 01:08] VITALS: BP 103/62; PULSE 65; RESP 22; O2SAT 96
[2016-12-26 05:10] VITALS: BP 120/76; PULSE 68; RESP 20; O2SAT 93
--- NOTE | 2016-12-26 05:21 | NUR ---
Shift note uneventful night breathing improved per pt pain managed well w/Percocet every 4hrs asked to be waken for up sba/ ind to br during night appears to have slept well compliant w/cpap use.
[2016-12-26 07:19] LABS: INR 2.54 ratio
[2016-12-26] MEDS: Potassium Chloride 20 mEq SR Tablet PO SCH ×2 (08:25→17:42)
[2016-12-26] MEDS: Verapamil SR 240 mg ER12 Tablet PO SCH (08:27)
[2016-12-26] MEDS: Miconazole 70 Gm Powder TOPICAL SCH ×2 (08:30→20:59)
[2016-12-26 09:45] VITALS: BP 107/73; PULSE 61; RESP 22; O2SAT 93
[2016-12-26] MEDS ORDERED: Phytonadione (Adult) 10 mg/50 mL NS IV ONE ×2 (10:05)
[2016-12-26 10:25] VITALS: PULSE 66
[2016-12-26] MEDS ORDERED: Ketorolac 15 mg/mL Inj IVPUSH ONE (10:55)
--- NOTE | 2016-12-26 11:45 | PCM.CHPMED ---
Subjective Date of Service: Dec 26, 2016 Provider requesting consult: Fannie Newsome DO Primary Physician: Admitting Physician: Indy Borjas DO Primary Care Physician: Tre Baltazar MD Attending Physician: Fannie Newsome DO Admit Status: From the Emergency Department Chief Complaint: Chief Complaint: Dysphasia History of Present Illness: Cynthia is a morbidly obese 36-year-old female with history of bilateral pulmonary emboli, atrial fibrillation on Coumadin and Flecainide, asthma, hypertension, bipolar disorder, anxiety, fibromyalgia, and recent left ureteral stent placement on 12/21/16 who presented to the ED with the complaint of increasing shortness of breath and wheezing for the past week. Of note, the patient was evaluated on 12/22 in the ED for similar symptoms which were relieved with nebulizers and steroids. At that time labs including: CBC, CMP, and troponin were unremarkable. However, she was found to have an INR of 3.4 and advised to followup with the Coumadin clinic. She states that since that time her symptoms were not improving and she returned to the ED. She reports chronic dyspnea but states that following the placement of the ureteral stent on 12/21 she has been progressively getting more short of breath. She denies coughing or burning in her throat but states that she has been treated for reflux in the past. She states that she often has difficulty swallowing but states that it comes and goes. She reports difficulty with both solids and liquids and has not appreciated any aggravating or alleviating factors. She states that she has had an EGD done in the past during which an esophageal stricture was treated. She reports nausea, fatigue and generalized weakness which are at chronic and at baseline. Additionally she reports diarrhea for the past few days and states that she is typically constipated at baseline. She denies bloody or dark colored stools, fever and chills. Review of Systems: A comprehensive review of systems was conducted with the patient and found to be negative except as above in the History of Present Illness. PMH Past Medical History Fibromyalgia Bipolar Depression Prior psychiatric admissions for suicidal ideations and prior medication overdose Anxiety Kidney Stones s/p left ureteral stent 12/21/2016 History of esophageal stricture requiring dilation 10+ years ago Chronic back pain Hypothyroid Asthma Paroxysmal Afib 05/2013 - on daily flecainide, warfarin History of SVT May 2010 Bilateral PE 08/2016 Hypertension SRI on CPAP Melanoma s/p resection Surgical History Abscess removed from uterus Adenoidectomy Ear tubes Cholecystectomy Tonsillectomy Home Medications Baclofen 20 MG PO TID Flecainide Acetate 100 MG PO BIDWM Gabapentin 1,200 MG PO TID Hydrochlorothiazide 25 MG PO QAM Levothyroxine 100 MCG PO QAM Lurasidone 120 MG PO HS Medroxyprogesterone Acetate (Depo-Provera) 150 MG IM [id number] Nystatin (Nystatin) 1 APPLIC TOP BID Pantoprazole DR 20 MG PO QAM Potassium Chloride 20 MEQ PO BIDWM TAKE WITH FOOD Topiramate 200 MG PO BID Verapamil ER240 MG PO QAM Warfarin Sodium 5 MG PO TUESDAYS Warfarin Sodium 12.5 MG PO WEDNESDAYS Warfarin Sodium 10 MG PO DAILY EXCEPT SAT/SAT Albuterol HFA 8.5 Gm 2 PUFFS INHALATION Q4H PRN Albuterol Neb Soln 2.5 Mg/3 Ml G INHALATION Q4H PRN Clonazepam 1-2 MG PO TID PRN Dihydroergotamine Mesylate 1 ML NS q15 mins x2 BID PRN Ondansetron 8 MG PO TID PRN Sumatriptan Succinate 100 MG PO DIRECTED PRN diphenhydrAMINE HCl 25-50 MG PO DAILY PRN oxyCODONE-Acetaminophen 10-325 mg 1 TABLET PO Q6H PRN Allergies: Coded Allergies: azithromycin (Verified Allergy, Severe, causes a-fib, 09/23/16) White (Verified Allergy, Intermediate, Rash, 09/23/16) citric acid (Verified Allergy, Intermediate, Rash, 09/23/16) hydrocodone bitartrate (Verified Allergy, Mild, GI, 09/23/16) Family History Family History CAD, CHF in mother and maternal grandfather Social History Hx Alcohol Use: Yes (past)Hx Substance Use: Yes (Past)Hx Tobacco Use: No Smoking Status: Former Smoker Living Arrangement: with Family Exam Vital Signs Vital Sign - Last Date Time Temp Pulse Resp B/P Pulse Ox O2 Delivery O2 Flow Rate FiO2 12/26/16 05:10 37.1 68 20 120/76 93 Room Air Intake and Output 12/25/16 12/25/16 12/26/16 Cumulative From/Thru 15:00 23:00 07:00 12/23/16 12:08 - 12/26/16 06:34 Intake Total 1800 ml 1080 ml 5815 ml Output Total 1050 ml Balance 1800 ml 1080 ml 4765 ml Intake Oral 1800 ml 1080 ml 5815 ml Output Urine Total 1050 ml # Voids 3 3 16 # Bowel Movements 2 General: Morbidly obese female in no acute distress. Appropriately interactive. HEENT: Normocephalic, atraumatic. PERRLA, EMOI. Anicteric sclerae. Moist mucosa. Lungs: Clear to auscultation bilaterally no wheezing or crackles. Cardiovascular: Difficult to auscultate due to patient's body habitus but appears regular rate and rhythm. No murmurs appreciated. Abdomen: Soft, obese, difficult to assess but does not appear distended. She is diffusely tender to palpation. Bowel tones present. Extremities: Distal pulses diminished but equal and intact bilaterally. Trace, nonpitting edema at the ankle bilaterally. Neurological: Grossly neurologically intact. Normal speech Psychiatric: Alert and oriented x3. Normal mood and affect. Lab and Diagnostics Result Diagram: 12/25/1660412/25/16 06 X-Rays, CTs and MRIs 12/26/16 - CT KUB IMPRESSION: 1. No hydronephrosis, nephrolithiasis, or hydroureter. A 4 mm calculus is present within the distal left ureter adjacent to the ureteral stent. 2. Normal appendix. Approved by: Torri Dietrich M.D. on 12/23/2016 at 16:11 12/26/16 - CT ANGIO CHEST PULMONARY EMBOLISM IMPRESSION: 1. Limited study. No pulmonary embolus within the central pulmonary arteries. 2. No findings to explain shortness of breath. Approved by: Torri Dietrich M.D. on 12/23/2016 at 16:14 Assessment & Plan Assessment 36y/o morbidly obese female with history of bilateral pulmonary emboli, atrial fibrillation on Coumadin and Flecainide, asthma, and recent left ureteral stent placement on 12/21/16 who presented to the ED with the complaint of increasing shortness of breath and wheezing for the past week. GI consulted for further evaluation and management of dysphagia. Acute on chronic dysphagia in a patient with a history of gastroesophageal reflux and gastropathy noted on EGD in 2013. -Differential diagnosis includes but is not limited to: esophageal spasm, hypertonic lower esophageal sphincter, esophageal webs or Schatzki ring, and malignancy. -Based on the patient's history, dysphagia likely secondary to chronic reflux resulting in esophageal stricture. However, cannot rule out motility disorders or other causes for mechanical obstruction and recommend further evaluation with EGD. -EGD on 01/11/14 significant for gastropathy, a small inflammatory pyloric channel nodule but was otherwise visually normal. -Barium swallow in 2014 showed a small reducible hiatal hernia but otherwise unremarkable. RECOMMENDATIONS: -Reverse INR. Goal INR < 1.5. -EGD planned for tomorrow as long as INR < 1.5 -NPO after midnight -PPI bid Additional problems managed by primary hospitalist. -Dyspnea likely secondary to obesity hypoventilation, asthma and respiratory depressive medications. -History of Paroxysmal Atrial Fibrillation -Left Flank Pain -Hypertension -Hypothyroidism -Morbid Obesity -Depression/Bipolar -Anxiety -SRI Problems: Pain Evaluation: Adequate Pain Control GI Prophylaxis: H2 pato VTE Prophylaxis: Sub-Q Heparin (Unfractionated) VTE Mechanical Devices: Intermittant Pneumatic CD Resuscitation Status: CPR: Attempt Resuscitation Chelsea Camacho DO Dec 26, 2016 08:21
[2016-12-26 13:41] LABS: INR 2.17 ratio
--- NOTE | 2016-12-26 14:52 | PCM.PNMED ---
Subjective Date of Service Dec 26, 2016 Subjective Patient was seen and examined at bedside today. Patient denies any chest pain, shortness of breath, nausea, vomiting, diarrhea. The patient currently complains of bruising in her arms secondary to diabetes she also complains of generalized muscular skeletal pain in the ribs most likely secondary to coughing and Overnight events: None Exam Vital Signs Vital Sign - Last Date Time Temp Pulse Resp B/P Pulse Ox O2 Delivery O2 Flow Rate FiO2 12/26/16 10:25 66 12/26/16 09:45 36.6 22 107/73 93 Room Air Intake and Output 12/25/16 12/25/16 12/26/16 Cumulative From/Thru 15:00 23:00 07:00 12/23/16 12:08 - 12/26/16 06:34 Intake Total 1800 ml 1080 ml 5815 ml Output Total 1050 ml Balance 1800 ml 1080 ml 4765 ml Intake Oral 1800 ml 1080 ml 5815 ml Output Urine Total 1050 ml # Voids 3 3 16 # Bowel Movements 2 Exam Physical Exam: GEN: Patient was awake, alert, responding appropriately to questions HEENT: Pupils equal round and reactive to light, extraocular eye muscles intact , Neck soft supple, trachea midline, nomocephalic/atraumatic, positive stridor in the upper airways only CV: +S1/S2, regular rate and rhythm, no murmurs auscultated Respiratory: CTAB, no wheezes, rales, rhonchi GI: +bowel sounds x4, soft, compressible, nontender to palpation EXT: no clubbing, cyanosis, edema Neuro: Cranial nerves II-XII grossly intact Psych: mood and affect were appropriate IVs and Medications Medications Reviewed: Medications were reviewed in detail Lab and Diagnostics Result Diagram: 12/25/1660412/25/16604 Microbiology Urine culture, pending X-Rays, CTs and MRIs CT Angio 12/23/16 IMPRESSION: 1. Limited study. No pulmonary embolus within the central pulmonary arteries. 2. No findings to explain shortness of breath. Dictated by: Torri Dietrich M.D. on 12/23/2016 at 16:11 Approved by: Torri Dietrich M.D. on 12/23/2016 at 16:14 CT KUB 12/23/16 IMPRESSION: 1. No hydronephrosis, nephrolithiasis, or hydroureter. A 4 mm calculus is present within the distal left ureter adjacent to the ureteral stent. 2. Normal appendix. Dictated by: Torri Dietrich M.D. on 12/23/2016 at 16:06 Approved by: Torri Dietrich M.D. on 12/23/2016 at 16:11 12-lead ECG ED EKG: Sinus rhythm with a rate of 86 and regular. Prolonged QT interval with QTC equal to 589. Negative for ischemic changes. Cardiac Echo Impressions Echocardiogram Report Interpretation Summary 1) Normal left ventricular thickness, size, wall motion, and systolic function (EF 60-65%). 2) Normal right ventricular size and function. 3) No significant valvular abnormalities. 4) The right ventricular systolic pressure is estimated at 42 mmHg assuming a right atrial pressure of 15 mm Hg. 5) Compared to the Echo done 08/23/2016, no significant change. Reading Physician:11:06 AM Assessment & Plan Cynthia is a morbidly obese 36-year-old female with history of bilateral PE, atrial fibrillation on Coumadin and Flecainide, Asthma, HTN, and recent left ureteral stent placement on 12/21/16 who presented to the [facility] ED with ongoing shortness of breath and wheezing. Shortness of Breath, present on admission. Acute. Improving. - Possibly likely a combination of obesity hypoventilation, asthma history and respiratory depressive medications - EKG unremarkable, infectious etiology unlikely (normal WBC, no CXR consolidation, no symptoms) - PE ruled out with negative CT Angio - CXR 12/22 suggestive of CHF exacerbation, patient does not have CHF history - Last ECHO 08/23/16 revealed mild MR with elevated pulmonary pressures - Echocardiogram results 12/24/16 EF of 60-65% no significant changes from previous echo on 08/23/2016 - Continue home inhaler/nebulizer regimen as needed Possible laryngospasms versus esophageal spasms -Patient currently has stridor, not wheezes -Speech and swallow eval state that the patient has an overall globus sensation when swallowing and do not recommend barium swallow test -GI consulted (Dr. Caceres) -Case was discussed with GI (Dr. Caceres), tomorrow will to do an EGD on the patient however because the patient is on warfarin and we need to reverse her INR status at this time. History of Paroxysmal Atrial Fibrillation, present on admisison. Chronic. - Patient in NSR at this time - Continue Verapamil, Flecainide, Warfarin - Monitor on telemetry Left Flank Pain, present on admission. Acute. Improved. - likely due to kidney stones, recent left ureteral stent on 12/21 - Tender to palpation on admission but no signs of bleeding, no overt CVA tenderness currently improved as the patient no longer complains of flank pain - UA with reflex culture shows no growth - Continue home oxycodone dosage Hypertension, present on admission. Chronic. - Continue HCTZ 25mg daily Hypothyroidism, present on admission. Chronic. - Outpatient labs 11/20/16 reveal TSH slightly elevated at 5.4 -TSH currently 1.160 (within normal limits) - Continue 100mcg Levothyroxine daily Morbid Obesity, present on admission. Chronic. - BMI ~64 - Nutritional consult offered - Prior admissions have had multiple elevated blood glucoses but no diagnosis of Diabetes - A1C 5.6 (within normal limits) Depression/Bipolar, present on admission. Chronic. - Continue Latuda Anxiety, present on admission. Chronic. - Continue clonazepam; try to minimize use to minimize respiratory depression SRI, present on admission. Chronic. - Continue CPAP usage History of PE -Continue warfarin Acetaminophen for headache, mild pain, fever as necessary. Bowel regimen as needed. Zofran held due to prolonged QT. Disposition: At this time the patient's "wheezes" seem to be more related to stridor. At this time the patient's INR is therapeutic and will need to be reversed in order to do an EGD in order to assess for laryngeal spasms versus esophageal dysmotility. After further discussion with the patient she does have a history of esophageal narrowing and in August 2016 she was supposed to have a dilation of the esophagus however because she had a PE she was unable to have the EGD done at that time. We will continue to reverse the patient's INR and prepare the patient for possible EGD tomorrow. Patient will be nothing by mouth after midnight. GI Prophylaxis: H2 pato VTE Prophylaxis: Sub-Q Heparin (Unfractionated) VTE Mechanical Devices: Intermittant Pneumatic CD Resuscitation Status: CPR: Attempt Resuscitation Fannie Newsome DO Dec 26, 2016 14:52
[2016-12-26 17:02] VITALS: BP 113/73; PULSE 64; RESP 22; O2SAT 94
[2016-12-26] MEDS: Pantoprazole 40 mg ER24 Tablet PO SCH (17:42)
--- NOTE | 2016-12-26 18:11 | NUR ---
Pain- Patient medicated x 2 this shift with Percocet for flank, back, bladder and leg pain which has been helpful for most of discomfort. Patient taking clear liquids in prep for possible EGD tomorrow. Up to bathroom to void, otherwise patient has been on bedrest.
[2016-12-26 21:02] VITALS: BP 107/71; PULSE 61; RESP 18; O2SAT 96
[2016-12-27] MEDS: oxyCODONE-Acetamin 10-325 mg Tablet PO PRN ×3 (03:22→13:47)
[2016-12-27 05:01] VITALS: BP 111/71; PULSE 69; RESP 24; O2SAT 95
[2016-12-27] MEDS ORDERED: Lactated Ringer's 1,000 ML IV ONE (06:00)
[2016-12-27 06:47] LABS: INR 1.23 ratio
--- NOTE | 2016-12-27 07:39 | PCM.HPANE ---
Patient Data Surgeon Admitting Provider:Indy Borjas DO Attending Provider:Fannie Newsome DO Primary Care Physician:Tre Baltazar MD Other Provider: Reason for Visit Dyspnea, Dysphagia Ht/WT & BMI Height (Feet): 5 Height (Inches): 5.00 Weight (Kilograms): 174.000 Body Mass Index 63.91 Allergies Coded Allergies: azithromycin (Verified Allergy, Severe, causes a-fib, 09/23/16) White (Verified Allergy, Intermediate, Rash, 09/23/16) citric acid (Verified Allergy, Intermediate, Rash, 09/23/16) hydrocodone bitartrate (Verified Allergy, Mild, GI, 09/23/16) Past Anesthesia History Anesthesia History: Denies:: Abnormal Airway, Anesthesia Reactions, Difficult Intubation, Fam Anesthesia Reaction, Fam Malignant Hypertherm, Malignant Hyperthermia Diabetes History Hx Diabetes?: No MRSA MRSA: No Medications Blood Thinner: Coumadin Reported Medications Warfarin Sodium 5 Mg Gevxec50 Mg PO DAILY EXCEPT SAT/SAT 30 Days Ref 0 12/23/16 Warfarin Sodium 5 Mg Uzjfnx25.5 Mg PO WEDNESDAYS 30 Ref 0 12/23/16 Warfarin Sodium 5 Mg Tablet5 Mg PO TUESDAYS 30 Days Ref 0 12/23/16 Lurasidone (Latuda)120 Mg Xnxenx322 Mg PO HS 12/23/16 Topiramate 100 Mg Hykmma811 Mg PO BID Ref 0 12/23/16 oxyCODONE-Acetaminophen 10-325 mg 1 Each Tablet1 Tablet PO Q6H PRN For Pain Ref 0 12/23/16 Levothyroxine 100 Mcg Tdshbc765 Mcg PO QAM For Thyroid Replacement Ref 0 12/23/16 Gabapentin 600 Mg Tablet1,200 Mg PO TID Ref 0 08/23/16 Albuterol Neb Soln 2.5 Mg/3 Ml Vial.neb2.5 Mg INHALATION Q4H PRN For Wheezing Ref 0 08/23/16 Nystatin 1 Each Powder.ea.1 Applic TOP BID 08/23/[address] 20 Mg Tablet.dr20 Mg PO QAM Ref 0 08/23/16 Albuterol HFA (Proair HFA)8.5 Gm Hfa.aer.ad2 Puffs INHALATION Q4H PRN For Shortness of Breath #1 INHALER 08/23/16 Verapamil ER 240 Mg Wexx858 Mg PO QAM Ref 0 08/23/16 Medroxyprogesterone Acetate (Depo-Provera)150 Mg/1 Ml Bxmjngj132 Mg IM Y2Uqcxin 08/23/16 Dihydroergotamine Mesylate (Migranal)1 Ml Lima.pump1 Ml NS q15 mins x2 BID PRN mirgane 08/23/16 Clonazepam 1 Mg Tablet1-2 Mg PO TID PRN For Anxiety or Agitation Ref 0 08/23/16 diphenhydrAMINE HCl (Benadryl)25 Mg Cqgexuw41-86 Mg PO DAILY PRN For Itching Ref 0 08/23/16 Sumatriptan Succinate 100 Mg Etmrqe172 Mg PO DIRECTED PRN migrane one tablet with onset of migrane, may repeat in 2 hrs. max dose 2 tabs in 24hrs 08/23/16 Ondansetron 8 Mg Tablet8 Mg PO TID PRN For Nausea 08/23/16 Flecainide Acetate 100 Mg Ehdksv693 Mg PO BIDWM 08/23/16 Hydrochlorothiazide 25 Mg Kwhycp18 Mg PO QAM 30 Days Ref 0 08/23/16 Baclofen 10 Mg Msrscr62 Mg PO TID Ref 0 08/23/16 Potassium Chloride 20 Meq Tab.er.prt20 Meq PO BIDWM 30 Days Ref 0 TAKE WITH FOOD 08/23/16 Discontinued Reported Medications [coumadin] No Conflict CheckUnknown Dose DAILY 12/11/16 Apixaban (Eliquis)5 Mg Tablet5 Mg PO DAILY 12/11/16 Hydroxyzine HCl (HydrOXYzine Hcl)50 Mg Bjntby61 Mg PO HS Ref 0 08/23/16 hydrOXYzine Hcl (HydrOXYzine Hcl)25 Mg Ezrwzq16 Mg PO Q6H PRN For Anxiety or Agitation Ref 0 08/23/16 oxyCODONE-Acetaminophen 5-325 mg 1 Each Tablet1 Tab PO Q4H PRN For Pain Ref 0 08/23/16 Topiramate 200 Mg Rdnqyo007 Mg PO BID Ref 0 08/23/16 Lurasidone (Latuda)80 Mg Aprpvf945 Mg PO HS 08/23/16 Levothyroxine Sodium (Levo-T)88 Mcg Czuuyf89 Mcg PO DAILY 08/23/16 History History of ENT Problems?: No HEENT History: Positive for:: Dysphagia Hearing Problem Sinus Problem Denies:: Abnormal Airway Cataracts Difficult Intubation Glaucoma TMJ Denture Type: None Teeth Condition: Within Normal Limits Hx of Heart Problems?: Yes Cardiovascular History: Positive for:: Atrial Fibrillation Hypertension Irregular Heartbeat Denies:: AICD Cardiac Surgery Chest Pain Congestive Heart Failure Edema Heart Murmur Pacemaker Thrombophlebitis Valvular Heart Disease Hx of Respiratory Problem?: Yes Respiratory History: Positive for:: Asthma Dyspnea Pulmonary Embolism Tuberculosis Use of C-PAP Machine Denies:: COPD Chest Surgery Cough Emphysema Hemoptysis Oxygen Administration Pneumonia Hx Neurologic Problems?: No Neurological History: Positive for:: Headaches Denies:: Alzheimer's Disease CVA Dementia Dizziness Multiple Sclerosis Parkinson's Disease Seizures Hx of GI Problems?: Yes Hx of Problems?: Yes Genitourinary History: Positive for:: Kidney Stones Urinary Tract Infection Denies:: HX of Hemodialysis HX of Peritoneal Dialysis: No Female Hx: Denies:: Currently Endometriosis Pelvic Inflammatory Problems with Breasts? Skin History: Denies:: History Skin Disorders? Pressure Ulcers Hx Musculoskeletal Problems?: Yes Musculoskeletal History: Positive for:: Back Injury Denies:: Joint Replacement Musculoskeletal Trauma Hx of Psycho/Social Problems?: Yes Psycho Social History: Positive for:: Anxiety Bipolar Disorder Hx Depression Suicide Attempt (no current ideation. last attempt 8 years ago) Hx Surgeries?: Yes (C-SECT 2002, ; GALBLADDER 2003; ABDM ABCESS 04; T&A 82) Hx Any Other Health Problems?: Yes Other History: Positive for:: Cancer (malignant melanoma-left breast) Hospitalization (cardiac and psych) Thyroid Disease Denies:: Endocrine Disease History Blood Transfusions: Positive for:: Accept Blood Products? Denies:: Blood Transfuse Reaction Blood Transfusions Hx Diabetes: No Hx Alcohol Use: Yes (past)Hx Substance Use: Yes (Past) Smoking Status: Former Smoker Have You Smoked inLast 12 mo: Yes (Quit 05/22) Stop/Bang Treated for Sleep Apnea?: Yes Do You Have a CPAP Machine?: Yes S-Snoring: Do You Snore Loudly: Yes T-Tired: feel tired, fatigued: Yes O-Obsered: Observed not breath: No P-Blood Pressure: treated: Yes B- Body Mass Index > 35 kg/m2: Yes A- Age over 50: No N- Neck Large Circumference: Yes G- Gender Male: No SRI Total Score: 6 Risk Assessment Category Category 1A: Patient has history of documented sleep apnea, and HAS NOT received any narcotic, sedative or anesthesia administration during this stay. Category 1B: Patient has history of documented sleep apnea, and HAS received any narcotic , sedative or anesthesia administration during this stay Category 2: Patient has SUSPECTED Obstructive Sleep Apnea, and HAS received any narcotic , sedative or anesthesia administration during this stay. Category 3: Patient has SUSPECTED Obstructive Sleep Apnea and HAS NOT received narcotic, sedative or anesthesia administration during this stay. Category 4: Outpatient in Procedural Areas with known sleep apnea or who screen positive for High Risk via the STOP/BANG questionnaire. Exam Exam Vital Signs Vital Signs Date Time Temp Pulse Resp B/P Pulse Ox O2 Delivery O2 Flow Rate FiO2 12/27/16 05:24 CPAP/BIPAP 12/27/16 05:01 36.9 69 24 111/71 95 Room Air General Appearance: Alert, Oriented X3, Cooperative, Mild Distress HEENT/AIRWAY: MP 2 Lungs: Normal Air Movement Heart: Regular Rate/Rhythm Meds/Labs/Diagnostics Admission Meds Current Medications Pantoprazole 40 mg 40 mg BIDAC PO Last administered on 12/26/16 17:42; Start 12/26/16 at 16:30 Phytonadione/ Sodium Chloride (Vitamin K (Adult)/Normal Saline PHARMACY TO MIX) 51 ml @ 102 mls/hr ONCE ONCE IV Last administered on 12/26/16 10:42; Start 12/26/16 at 10:05; Stop 12/26/16 at 10:45; Status DC Ketorolac Tromethamine (Toradol Inj) 15 mg ONCE ONCE IVPUSH Last administered on 12/26/16 11:37; Start 12/26/16 at 10:55; Stop 12/26/16 at 10:58; Status DC Labs Test 12/23/16 12:52 12/23/16 13:42 12/23/16 13:44 12/24/16 05:12 Hold Purple Top Tube Received (Received) Hold Blue Top Tube Received (Received) Hold [place] Top Tube Received (Received) Hold Rahman Top Tube Received (Received) Hold Urine Received (Received) Urine Color Bloody (YELLOW) Urine Appearance Cloudy (CLEAR,HAZY) Urine pH 7.5 (5.0-8.0) Urine Specific [place] 1.020 (1.003-1.035) Urine Protein 100mg/dL (NEG,TRACE) Urine Glucose (UA) Negativemg/dL (NEGATIVE) Urine Ketones Negativemg/dL (NEGATIVE) Urine Occult Blood Moderate (NEGATIVE) Urine Nitrite Negative (NEGATIVE) Urine Bilirubin Negative (NEGATIVE) Urine Urobilinogen Normalmg/dL (NORMAL) Urine Leukocyte Esterase Trace (NEGATIVE) Urine RBC Packed/hpf (0-2) Urine WBC 0-5/hpf (0-5) Urine Epithelial Cells Few/hpf (NONE-MOD) Urine Crystals None seen (NONE SEEN) Urine Bacteria Few/hpf (NONE-FEW) Urine Hyaline Casts None/lpf (NONE) Urine Granular Casts None seen (NONE SEEN) Urine Waxy Casts None seen (NONE SEEN) Urine Red Blood Cell Casts None seen (NONE SEEN) Urine White Blood Cell Casts None seen (NONE SEEN) Urine Mucus None seen (None Seen) Urine Trichomonas None seen (NONE SEEN) Urine Yeast None (NONE SEEN) Urinalysis Comment None Urine Culture Reflexed Indicated Magnesium Level 1.9mg/dL (1.6-2.6) Hemoglobin A1c 5.6% (4.8-5.6) Test 12/24/16 09:46 12/25/16 06:05 12/27/16 05:53 Troponin T 0.010ug/L (0.0-0.011) Thyroid Stimulating Hormone (TSH) 1.160uIU/mL (0.450-4.500) Free Thyroxine 1.04ng/dL (0.82-1.77) Procalcitonin 0.04ng/mL (0.00-0.08) Prothrombin Time 13.2sec (8.1-12.5) Prothromb Time International Ratio 1.23ratio Sodium Level 142mEq/L (134-144) Potassium Level 3.4mEq/L (3.5-5.2) Chloride Level 106mEq/L (97-108) Carbon Dioxide Level 22mmol/L (18-29) Blood Urea Nitrogen 11mg/dL (6-20) Creatinine 0.77mg/dL (0.57-1.00) Estimat Glomerular Filtration Rate 121mL/min (>59) Glucose Level 92mg/dL (60-99) Calcium Level 8.8mg/dL (8.5-10.1) Total Bilirubin 0.4mg/dL (0.0-1.2) Aspartate Amino Transf (AST/SGOT) 16U/L (0-50) Alanine Aminotransferase (ALT/SGPT) 20U/L (0-32) Alkaline Phosphatase 132U/L (25-150) Total Protein 5.9g/dL (6.4-8.4) Albumin 3.7g/dL (3.4-5.0) Plan Impression Patient chart reviewed, patient interviewed and anesthestic plan with risks, benefits, and alternatives discussed, and informed consent obtained. NPO per Anesth. Guidelines: Yes ASA Physical Status: ASA3 Severe Disease Anesthetic Plan: MAC Bene/Risks/Altern/Consents: Yes HP Complete Prior to Induction: Yes Kevin Hicks MD Dec 27, 2016 07:39
[2016-12-27] MEDS: Pantoprazole 40 mg ER24 Tablet PO SCH (07:40)
[2016-12-27 07:52] VITALS: BP 123/63; PULSE 71; RESP 16; O2SAT 95
[2016-12-27 08:26] VITALS: BP 114/62; PULSE 81; RESP 16; O2SAT 97
[2016-12-27 08:36] VITALS: BP 114/54; PULSE 72; RESP 16; O2SAT 96
[2016-12-27 08:45] VITALS: BP 125/69; PULSE 72; RESP 16; O2SAT 96
--- NOTE | 2016-12-27 08:48 | ENDO ---
[address] [address] ENDOSCOPY PROCEDURE PATIENT: ELVIA FERGUSON : 1980 MR#: [id number] ADMIT: 12/23/2016 JOB ID: [id number] DATE: 12/23/2016 TYPE OF OPERATION: Esophagogastroduodenoscopy with biopsy. PREOPERATIVE DIAGNOSIS(ES): Dysphagia. POSTOPERATIVE DIAGNOSIS(ES): 1. Mild nonerosive gastritis. 2. Mild bile reflux. ANESTHESIA: Monitored anesthesia care. COMPLICATIONS: None. BLOOD LOSS: Minimal. DESCRIPTION OF PROCEDURE: After risks and benefits were explained to the patient, informed consent was obtained. After anesthesia administered, upper endoscope was then inserted into mouth intubating the esophagus, stomach, second portion of duodenum. Mucosa carefully examined. After procedure was done, the scope withdrawn and procedure terminated. FINDINGS: Upon inspection of the esophagus, the esophagus is normal without masses, ulcers, or lesions. Z-line located 45 cm from incisors. Upon entering the stomach, there is mild bile reflux and mild nonerosive gastritis that was seen. No ulcers or masses were seen. Retroflexion was normal. Duodenal bulb, first and second portion normal. Biopsies taken from the antrum, body and mid distal esophagus. IMPRESSIONS: 1. Mild bile reflux. 2. Mild nonerosive gastritis. RECOMMENDATIONS: 1. Await pathology results. 2. Okay to start clear liquid diet. Advance as tolerated. 3. Okay to discharge home today from a gastrointestinal standpoint.
[2016-12-27 08:51] LABS: BASOPHILS % (AUTO) 0.2 % (0-3); EOSINOPHILS % (AUTO) 4.2 % (0-5); MONOCYTES % (AUTO) 9.5 % (4-12); Mean Corpuscular Hemoglobin 26.2 pg (27.0-35.0); Mean Corpuscular Volume 83.1 fL (81-100); NEUTROPHILS % (AUTO) 57.7 % (40-74); Platelet Count 222 bil/L (150-400)
--- NOTE | 2016-12-27 08:53 | PCM.ANEP1 ---
Post Anesthesia PACU Phase 1 Assessment Vital Signs Vital Signs Date Time Temp Pulse Resp B/P Pulse Ox O2 Delivery O2 Flow Rate FiO2 12/27/16 08:45 72 16 125/69 96 Room Air 12/27/16 08:36 72 16 114/54 96 Room Air 12/27/16 08:26 36.3 81 16 114/62 97 Room Air 12/27/16 07:52 71 16 123/63 95 Room Air 12/27/16 05:24 CPAP/BIPAP 12/27/16 05:01 36.9 69 24 111/71 95 Room Air Anesthetic Administered: MAC Level of Alertness: Awake, talking Pain: No Pain Scale Score: 8 Nausea or Vomiting: No CV Function & Hydration Stable: Yes Airway Device: None Oxygen Delivery: Nasal Cannula Lungs: Normal Air Movement PACU Phase 2 Assessment Complications: No Follow up Care: N/A Patient Instructions Provided: N/A Kevin Hicks MD Dec 27, 2016 08:53
--- NOTE | 2016-12-27 08:58 | NUR ---
Social Work-readiness for discharge: Data:EMR reviewed. Pt is on day 4 of hospitalization for dyspnea per H&P. Pt is not medically stable anticipate 1-2 more days. Pt resides at home with her and has been up independent in her room. No anticipated discharge needs. SW will continue to follow if needs arise. Assessment:Pt who is independent at baseline. Plan:Pt to discharge home when medically stable via POV. No anticipated discharge needs. SW will continue to follow if needs arise. COY Rooney
[2016-12-27] MEDS: Verapamil SR 240 mg ER12 Tablet PO SCH (09:18)
[2016-12-27] MEDS: Potassium Chloride 20 mEq SR Tablet PO SCH (09:20)
[2016-12-27] MEDS: Miconazole 70 Gm Powder TOPICAL SCH (09:22)
--- NOTE | 2016-12-27 10:40 | PCM.PNMED ---
Subjective Date of Service Dec 27, 2016 Subjective GASTROENTEROLOGY PROGRESS NOTE: Attending Physician: Avinash Caceres MD Resident Physician: Chelsea Camacho DO No acute events overnight. Patient underwent EGD this morning and tolerated the procedure well. EGD showing mild bile reflux and mild nonerosive gastritis, biopsies were taken from the antrum, body and mid distal esophagus. Following the procedure the patient states that she feels ready to eat. She reports improvement in her abdominal pain as well as her shortness of breath. She states that she has not yet moved her bowel but denies constipation. She notes mild pain in her ribs but otherwise is doing well and pain well controlled. She denies nausea, vomiting, fever and chills. Exam Vital Signs Vital Sign - Last Date Time Temp Pulse Resp B/P Pulse Ox O2 Delivery O2 Flow Rate FiO2 12/27/16 07:52 71 16 123/63 95 Room Air 12/27/16 05:01 36.9 Intake and Output 12/26/16 12/26/16 12/27/16 Cumulative From/Thru 15:00 23:00 07:00 12/23/16 12:08 - 12/27/16 05:34 Intake Total 2885 ml 300 ml 9000 ml Output Total 1050 ml Balance 2885 ml 300 ml 7950 ml Intake Oral 2885 ml 300 ml 9000 ml Output Urine Total 1050 ml # Voids 4 1 21 # Bowel Movements 0 2 Exam General: Morbidly obese female in no acute distress. Appropriately interactive. HEENT: Normocephalic, atraumatic. PERRLA, Moist mucosa. Lungs: Clear to auscultation bilaterally no wheezing or crackles. Cardiovascular: Difficult to auscultate due to patient's body habitus but appears regular rate and rhythm. No murmurs appreciated. Abdomen: Soft, obese, difficult to assess but does not appear distended. Nontender. Hypoactive bowel tones. Extremities: No edema. Neurological: Grossly neurologically intact. Normal speech IVs and Medications Medications Reviewed: Medications were reviewed in detail Lab and Diagnostics Laboratory Tests Test 12/26/16 13:12 12/27/16 05:53 Prothrombin Time 23.6sec (8.1-12.5) 13.2sec (8.1-12.5) Prothromb Time International Ratio 2.17ratio 1.23ratio Sodium Level 142mEq/L (134-144) Potassium Level 3.4mEq/L (3.5-5.2) Chloride Level 106mEq/L (97-108) Carbon Dioxide Level 22mmol/L (18-29) Blood Urea Nitrogen 11mg/dL (6-20) Creatinine 0.77mg/dL (0.57-1.00) Estimat Glomerular Filtration Rate 121mL/min (>59) Glucose Level 92mg/dL (60-99) Calcium Level 8.8mg/dL (8.5-10.1) Total Bilirubin 0.4mg/dL (0.0-1.2) Aspartate Amino Transf (AST/SGOT) 16U/L (0-50) Alanine Aminotransferase (ALT/SGPT) 20U/L (0-32) Alkaline Phosphatase 132U/L (25-150) Total Protein 5.9g/dL (6.4-8.4) Albumin 3.7g/dL (3.4-5.0) Microbiology 12/23/16 Urine Culture - No growth (<1,000 organisms/mL) Result Diagram: 12/25/16 0605 12/27/16 0553 X-Rays, CTs and MRIs CT Angio 12/23/16 IMPRESSION: 1. Limited study. No pulmonary embolus within the central pulmonary arteries. 2. No findings to explain shortness of breath. Approved by: Torri Dietrich M.D. on 12/23/2016 at 16:14 CT KUB 12/23/16 IMPRESSION: 1. No hydronephrosis, nephrolithiasis, or hydroureter. A 4 mm calculus is present within the distal left ureter adjacent to the ureteral stent. 2. Normal appendix. Approved by: Torri Dietrich M.D. on 12/23/2016 at 16:11 12-lead ECG EKG: Sinus rhythm with a rate of 86 and regular. Prolonged QT interval with QTC equal to 589. Negative for ischemic changes. Cardiac Echo Impressions 12/24/16 - ECHOCARDIOGRAM INTERPRETATION SUMMARY: 1) Normal left ventricular thickness, size, wall motion, and systolic function ( EF 60-65%). 2) Normal right ventricular size and function. 3) No significant valvular abnormalities. 4) The right ventricular systolic pressure is estimated at 42 mmHg assuming a right atrial pressure of 15 mm Hg. 5) Compared to the Echo done 08/23/2016, no significant change. Additional Diagnostics 12/23/2016 - ESOPHAGOGASTRODUODENOSCOPY with BIOPSY. PREOPERATIVE DIAGNOSIS: Dysphagia. POSTOPERATIVE DIAGNOSIS(ES): 1. Mild nonerosive gastritis. 2. Mild bile reflux. FINDINGS: Upon inspection of the esophagus, the esophagus is normal without masses, ulcers, or lesions. Z-line located 45 cm from incisors. Upon entering the stomach, there is mild bile reflux and mild nonerosive gastritis that was seen. No ulcers or masses were seen. Retroflexion was normal. Duodenal bulb, first and second portion normal. Biopsies taken from the antrum, body and mid distal esophagus. IMPRESSIONS: 1. Mild bile reflux. 2. Mild nonerosive gastritis. RECOMMENDATIONS: 1. Await pathology results. 2. Okay to start clear liquid diet. Advance as tolerated. 3. Okay to discharge home today from a gastrointestinal standpoint. Avinash Caceres MD 12/27/16 0817 Assessment & Plan 36y/o morbidly obese female with history of bilateral pulmonary emboli, atrial fibrillation on Coumadin and Flecainide, asthma, and recent left ureteral stent placement on 12/21/16 who presented to the ED with the complaint of increasing shortness of breath and wheezing for the past week. GI consulted for further evaluation and management of dysphagia. Mild nonerosive gastritis and mild bile reflux noted on EGD in a patient with a history of chronic dysphagia, gastroesophageal reflux and gastropathy noted on prior EGD in 2013. RECOMMENDATIONS: -Clear liquid diet and advanced as tolerated -Continue PPI bid -Biopsy results pending -From a GI perspective, patient ready for discharge. Recommend outpatient followup with patient's Retort Engineer at the [facility]. Additional problems managed by primary hospitalist. -Dyspnea likely secondary to obesity hypoventilation, asthma and respiratory depressive medications. -History of Paroxysmal Atrial Fibrillation -Left Flank Pain -Hypertension -Hypothyroidism -Morbid Obesity -Depression/Bipolar -Anxiety -SRI Pain Evaluation: Adequate Pain Control GI Prophylaxis: H2 pato VTE Prophylaxis: Sub-Q Heparin (Unfractionated) VTE Mechanical Devices: Intermittant Pneumatic CD Resuscitation Status: CPR: Attempt Resuscitation Chelsea Camacho DO Dec 27, 2016 08:24
--- NOTE | 2016-12-27 12:06 | NUR ---
Social Work-discharge: Data:EMR reviewed. Pt is on day 4 of hospitalization for dyspnea per H&P. Pt is medically stable anticipate. Pt resides at home with her and has been up independent in her room. No anticipated discharge needs. All updated and agreeable to plan. Assessment:Pt who is independent at baseline. Plan:Pt to discharge home today via POV. No anticipated discharge needs. All updated and agreeable to plan. COY Rooney
--- NOTE | 2016-12-27 13:58 | PCM.DIMED ---
Discharge Instructions Date of Service Dec 27, 2016 Dates of Hospitalization Dec 23, 2016 at 19:43 Discharge Diagnosis Discharge Diagnosis Shortness of Breath, present on admission. Acute. Improving. Possible laryngospasms versus esophageal spasms History of Paroxysmal Atrial Fibrillation, present on admisison. Chronic. Left Flank Pain, present on admission. Acute. Improved. Hypertension, present on admission. Chronic. Hypothyroidism, present on admission. Chronic. Depression/Bipolar, present on admission. Chronic. Anxiety, present on admission. Chronic. SRI, present on admission. Chronic. History of PE Diet Discharge Diet: Low fat, Low Sodium, Heart Healthy Activity Discharge Activity: No restrictions Call your provider Call your provider for: Shortness of breath, Vomitting, Weakness (unilateral) Patient Instructions Follow-up Provider: Darinel Hale MD Follow-up with PCP in: 2 weeks (PLEASE FOLLOW UP WITH DR. HALE AT [facility] [place] on 01/17/17 at 7:25am) Provider: Tre Baltazar MD Follow-up in: 1 week (if an appointment has not been made please call to schedule an appointment) Follow-up with [facility]-level in: 2 weeks (Please follow up with your GI doctor in the [place] [facility]. If and appointment has not been made please call to schedule and appointment) Fannie Newsome DO Dec 27, 2016 13:51
[2016-12-27] MEDS ORDERED: LOV120 SUBQ (14:10)
[2016-12-27] MEDS ORDERED: PANT40TA2 PO (15:26)
--- NOTE | 2016-12-27 15:28 | PCM.DC.MED ---
Discharge Summary Date of Service Dec 27, 2016 Dates of Hospitalization Date of Hospital Admission Dec 23, 2016 at 19:43 Date of Discharge: Dec 27, 2016 Providers: Admitting Physician: Indy Borjas DO Primary Care Physician: Tre Baltazar MD Attending Physician: Fannie Newsome DO Diagnosis at Time of Discharge Diagnosis at Time of Discharge Shortness of Breath, present on admission. Acute. Improving. Possible laryngospasms versus esophageal spasms History of Paroxysmal Atrial Fibrillation, present on admisison. Chronic. Left Flank Pain, present on admission. Acute. Improved. Hypertension, present on admission. Chronic. Hypothyroidism, present on admission. Chronic. Depression/Bipolar, present on admission. Chronic. Anxiety, present on admission. Chronic. SRI, present on admission. Chronic. History of PE Procedures XRay, CTs & MRIs CT Angio 12/23/16 IMPRESSION: 1. Limited study. No pulmonary embolus within the central pulmonary arteries. 2. No findings to explain shortness of breath. Approved by: Torri Dietrich M.D. on 12/23/2016 at 16:14 CT KUB 12/23/16 IMPRESSION: 1. No hydronephrosis, nephrolithiasis, or hydroureter. A 4 mm calculus is present within the distal left ureter adjacent to the ureteral stent. 2. Normal appendix. Approved by: Torri Dietrich M.D. on 12/23/2016 at 16:11 ECG 12 Lead EKG: Sinus rhythm with a rate of 86 and regular. Prolonged QT interval with QTC equal to 589. Negative for ischemic changes. Cardiac Echo Impression 12/24/16 - ECHOCARDIOGRAM INTERPRETATION SUMMARY: 1) Normal left ventricular thickness, size, wall motion, and systolic function ( EF 60-65%). 2) Normal right ventricular size and function. 3) No significant valvular abnormalities. 4) The right ventricular systolic pressure is estimated at 42 mmHg assuming a right atrial pressure of 15 mm Hg. 5) Compared to the Echo done 08/23/2016, no significant change. Other Diagnostics 12/23/2016 - ESOPHAGOGASTRODUODENOSCOPY with BIOPSY. PREOPERATIVE DIAGNOSIS: Dysphagia. POSTOPERATIVE DIAGNOSIS(ES): 1. Mild nonerosive gastritis. 2. Mild bile reflux. FINDINGS: Upon inspection of the esophagus, the esophagus is normal without masses, ulcers, or lesions. Z-line located 45 cm from incisors. Upon entering the stomach, there is mild bile reflux and mild nonerosive gastritis that was seen. No ulcers or masses were seen. Retroflexion was normal. Duodenal bulb, first and second portion normal. Biopsies taken from the antrum, body and mid distal esophagus. IMPRESSIONS: 1. Mild bile reflux. 2. Mild nonerosive gastritis. RECOMMENDATIONS: 1. Await pathology results. 2. Okay to start clear liquid diet. Advance as tolerated. 3. Okay to discharge home today from a gastrointestinal standpoint. Avinash Caceres MD 12/27/16 0817 Brief History The patient is a 36-year-old morbidly obese 36-year-old female with history of bilateral pulmonary emboli, atrial fibrillation on Coumadin and Flecainide, asthma, hypertension, bipolar disorder, anxiety, fibromyalgia, and recent left ureteral stent placement on 12/21/16 who presented to the ED with the complaint of increasing shortness of breath and wheezing for the past week. The patient recently was treated on 12/21/2016 in the emergency room and given a DuoNeb treatment. After further exam of the patient she did not have wheezing however she did have some stridor coming from the upper airway. The patient's lungs were completely clear and there were no wheezes rales or rhonchi noted. Much of the patient's dyspnea could potentially be from hypoventilation syndrome secondary to morbid obesity as patient does have a BMI of 63.8. The patient complained of a globus sensation in the neck while swallowing and speech evaluated the patient and stated that she did not have any problems swallowing however did recommend that GI be consulted as the patient previously had symptoms of dysphagia and needed to have a dilation of the upper esophagus however this never took place. The patient did have an EGD today 12/27/2016 and after discussing the case with the GI doctor (Dr. Caceres) he stated that she did show some signs of gastritis however there were no strictures noted and dilation of the esophagus was not necessary and recommended that she follow-up with her GI doctor outpatient. Because the patient did have stridor in the upper airways she has had an appointment that has been made for her with ENT on 01/17/2017. The patient has been encouraged to keep this appointment. During the patient's stay she remained on room air at and satting at 92% or above. At nighttime the patient did use her CPAP. In order to do the EGD we need to reverse the patient's therapeutic INR with 10 mg of vitamin K. The patient's INR reversed immediately and the next day was down to 1.2. The patient is being discharged home with Coumadin 60 mg twice a day of Lovenox. The patient was instructed to take this for 5 days however on day 3 she was to go to the Coumadin clinic and have this checked out. The patient was instructed that she should continue to take both Coumadin and Lovenox at the same time. The patient is being discharged home in stable condition with close follow-up with her PCP, GI doctor, Coumadin clinic, and ENT Hospital Course Cynthia is a morbidly obese 36-year-old female with history of bilateral PE, atrial fibrillation on Coumadin and Flecainide, Asthma, HTN, and recent left ureteral stent placement on 12/21/16 who presented to the [facility] ED with ongoing shortness of breath and wheezing. Shortness of Breath, present on admission. Acute. Improving. - Possibly likely a combination of obesity hypoventilation, asthma history and respiratory depressive medications - EKG unremarkable, infectious etiology unlikely (normal WBC, no CXR consolidation, no symptoms) - PE ruled out with negative CT Angio - CXR 12/22 suggestive of CHF exacerbation, patient does not have CHF history - Last ECHO 08/23/16 revealed mild MR with elevated pulmonary pressures - Echocardiogram results 12/24/16 EF of 60-65% no significant changes from previous echo on 08/23/2016 - Continue home inhaler/nebulizer regimen as needed Possible laryngospasms versus esophageal spasms -Patient currently has stridor, not wheezes -Speech and swallow eval state that the patient has an overall globus sensation when swallowing and do not recommend barium swallow test -GI consulted (Dr. Caceres) -Reversal of therapeutic INR with 10 mg of vitamin K yesterday and today patient 's INR is 1.23 -EGD results: Mild nonerosive gastritis and mild bile reflux noted on EGD in a patient with a history of chronic dysphagia, gastroesophageal reflux and gastropathy noted on prior EGD in 2013. History of Paroxysmal Atrial Fibrillation, present on admisison. Chronic. - Patient in NSR at this time - Continue Verapamil, Flecainide, Warfarin - Monitor on telemetry Left Flank Pain, present on admission. Acute. Improved. - likely due to kidney stones, recent left ureteral stent on 12/21 - Tender to palpation on admission but no signs of bleeding, no overt CVA tenderness currently improved as the patient no longer complains of flank pain - UA with reflex culture shows no growth - Continue home oxycodone dosage Hypertension, present on admission. Chronic. - Continue HCTZ 25mg daily Hypothyroidism, present on admission. Chronic. - Outpatient labs 11/20/16 reveal TSH slightly elevated at 5.4 -TSH currently 1.160 (within normal limits) - Continue 100mcg Levothyroxine daily Morbid Obesity, present on admission. Chronic. - BMI ~64 - Nutritional consult offered - Prior admissions have had multiple elevated blood glucoses but no diagnosis of Diabetes - A1C 5.6 (within normal limits) Depression/Bipolar, present on admission. Chronic. - Continue Latuda Anxiety, present on admission. Chronic. - Continue clonazepam; try to minimize use to minimize respiratory depression SRI, present on admission. Chronic. - Continue CPAP usage History of PE -Continue warfarin Exam Vital Signs (Last) Date Time Temp Pulse Resp B/P Pulse Ox O2 Delivery O2 Flow Rate FiO2 12/27/16 08:53 Nasal Cannula 12/27/16 08:45 72 16 125/69 96 12/27/16 08:26 36.3 Exam Physical Exam: GEN: Patient was awake, alert, responding appropriately to questions HEENT: Pupils equal round and reactive to light, extraocular eye muscles intact , Neck soft supple, trachea midline, nomocephalic/atraumatic CV: +S1/S2, regular rate and rhythm, no murmurs auscultated Respiratory: CTAB, no wheezes, rales, rhonchi GI: +bowel sounds x4, soft, compressible, nontender to palpation EXT: no clubbing, cyanosis, edema Neuro: Cranial nerves II-XII grossly intact Psych: mood and affect were appropriate Test 12/23/16 12:52 12/23/16 13:42 12/23/16 13:44 12/24/16 05:12 Hold Purple Top Tube Received (Received) Hold Blue Top Tube Received (Received) Hold [place] Top Tube Received (Received) Hold Rahman Top Tube Received (Received) Hold Urine Received (Received) Urine Color Bloody (YELLOW) Urine Appearance Cloudy (CLEAR,HAZY) Urine pH 7.5 (5.0-8.0) Urine Specific [place] 1.020 (1.003-1.035) Urine Protein 100mg/dL (NEG,TRACE) Urine Glucose (UA) Negativemg/dL (NEGATIVE) Urine Ketones Negativemg/dL (NEGATIVE) Urine Occult Blood Moderate (NEGATIVE) Urine Nitrite Negative (NEGATIVE) Urine Bilirubin Negative (NEGATIVE) Urine Urobilinogen Normalmg/dL (NORMAL) Urine Leukocyte Esterase Trace (NEGATIVE) Urine RBC Packed/hpf (0-2) Urine WBC 0-5/hpf (0-5) Urine Epithelial Cells Few/hpf (NONE-MOD) Urine Crystals None seen (NONE SEEN) Urine Bacteria Few/hpf (NONE-FEW) Urine Hyaline Casts None/lpf (NONE) Urine Granular Casts None seen (NONE SEEN) Urine Waxy Casts None seen (NONE SEEN) Urine Red Blood Cell Casts None seen (NONE SEEN) Urine White Blood Cell Casts None seen (NONE SEEN) Urine Mucus None seen (None Seen) Urine Trichomonas None seen (NONE SEEN) Urine Yeast None (NONE SEEN) Urinalysis Comment None Urine Culture Reflexed Indicated Magnesium Level 1.9mg/dL (1.6-2.6) Hemoglobin A1c 5.6% (4.8-5.6) Test 12/24/16 09:46 12/25/16 06:05 12/27/16 05:53 Troponin T 0.010ug/L (0.0-0.011) Thyroid Stimulating Hormone (TSH) 1.160uIU/mL (0.450-4.500) Free Thyroxine 1.04ng/dL (0.82-1.77) Procalcitonin 0.04ng/mL (0.00-0.08) White Blood Count 8.1th/mm3 (3.8-10.1) Red Blood Count 4.43mil/mm3 (3.90-5.20) Hemoglobin 11.6g/dL (12.0-15.6) Hematocrit 36.8% (35.0-46.0) Mean Corpuscular Volume 83.1fL (81-100) Mean Corpuscular Hemoglobin 26.2pg (27.0-35.0) Mean Corpuscular Hemoglobin Concent 31.5% (32.0-37.0) Red Cell Distribution Width 14.9% (12.3-15.4) Platelet Count 222bil/L (150-400) Neutrophils (%) (Auto) 57.7% (40-74) Lymphocytes (%) (Auto) 27.4% (14-46) Monocytes (%) (Auto) 9.5% (4-12) Eosinophils (%) (Auto) 4.2% (0-5) Basophils (%) (Auto) 0.2% (0-3) Prothrombin Time 13.2sec (8.1-12.5) Prothromb Time International Ratio 1.23ratio Sodium Level 142mEq/L (134-144) Potassium Level 3.4mEq/L (3.5-5.2) Chloride Level 106mEq/L (97-108) Carbon Dioxide Level 22mmol/L (18-29) Blood Urea Nitrogen 11mg/dL (6-20) Creatinine 0.77mg/dL (0.57-1.00) Estimat Glomerular Filtration Rate 121mL/min (>59) Glucose Level 92mg/dL (60-99) Calcium Level 8.8mg/dL (8.5-10.1) Total Bilirubin 0.4mg/dL (0.0-1.2) Aspartate Amino Transf (AST/SGOT) 16U/L (0-50) Alanine Aminotransferase (ALT/SGPT) 20U/L (0-32) Alkaline Phosphatase 132U/L (25-150) Total Protein 5.9g/dL (6.4-8.4) Albumin 3.7g/dL (3.4-5.0) Discharge Medications Discharge Medications Baclofen (Baclofen) 10 Mg Tablet 20 MG PO TID (Reported) Enoxaparin (Lovenox) 120 Mg/0.8 Ml Syringe 160 MG SUBQ BID Prescribed by: FANNIE NEWSOME DO Flecainide Acetate (Flecainide Acetate) 100 Mg Tablet 100 MG PO BIDWM (Reported ) Gabapentin (Gabapentin) 600 Mg Tablet 1,200 MG PO TID (Reported) Hydrochlorothiazide (Hydrochlorothiazide) 25 Mg Tablet 25 MG PO QAM (Reported) Levothyroxine (Levothyroxine) 100 Mcg Tablet 100 MCG PO QAM (Reported) Lurasidone (Latuda) 120 Mg Tablet 120 MG PO HS (Reported) Medroxyprogesterone Acetate (Depo-Provera) 150 Mg/1 Ml Syringe 150 MG IM B3Caazpm (Reported) Nystatin (Nystatin) 1 Each Powder.ea. 1 APPLIC TOP BID (Reported) Pantoprazole DR (Pantoprazole DR) 20 Mg Tablet.dr 20 MG PO QAM (Reported) Potassium Chloride (Potassium Chloride) 20 Meq Tab.er.prt 20 MEQ PO BIDWM ( Reported) TAKE WITH FOOD Topiramate (Topiramate) 100 Mg Tablet 200 MG PO BID (Reported) Verapamil ER (Verapamil ER) 240 Mg Tber 240 MG PO QAM (Reported) Warfarin Sodium (Warfarin Sodium) 5 Mg Tablet 5 MG PO TUESDAYS (Reported) Warfarin Sodium (Warfarin Sodium) 5 Mg Tablet 12.5 MG PO WEDNESDAYS (Reported) Warfarin Sodium (Warfarin Sodium) 5 Mg Tablet 10 MG PO DAILY EXCEPT SAT/SAT ( Reported) As needed Albuterol HFA (Proair HFA) 8.5 Gm Hfa.aer.ad 2 PUFFS INHALATION Q4H PRN PRN For Shortness of Breath (Reported) Albuterol Neb Soln (Albuterol Neb Soln) 2.5 Mg/3 Ml Vial.neb 2.5 MG INHALATION Q4H PRN PRN For Wheezing (Reported) Clonazepam (Clonazepam) 1 Mg Tablet 1-2 MG PO TID PRN PRN For Anxiety or Agitation (Reported) Dihydroergotamine Mesylate (Migranal) 1 Ml [place]ye.pump 1 ML NS q15 mins x2 BID PRN PRN mirgane (Reported) Ondansetron (Ondansetron) 8 Mg Tablet 8 MG PO TID PRN PRN For Nausea (Reported) Sumatriptan Succinate (Sumatriptan Succinate) 100 Mg Tablet 100 MG PO DIRECTED PRN PRN migrane (Reported) one tablet with onset of migrane, may repeat in 2 hrs. max dose 2 tabs in 24hrs diphenhydrAMINE HCl (Benadryl) 25 Mg Capsule 25-50 MG PO DAILY PRN PRN For Itching (Reported) oxyCODONE-Acetaminophen 10-325 mg (oxyCODONE-Acetaminophen 10-325 mg) 1 Each Tablet 1 TABLET PO Q6H PRN PRN For Pain (Reported) Followup Plan Discharge Diet: Low fat, Low Sodium, Heart Healthy Discharge Activity: No restrictions Follow-up Provider: Darinel Solis MD Follow-up with PCP in: 2 weeks (PLEASE FOLLOW UP WITH DR[facility] SOLIS AT [facility] [place] on 01/17/17 at 7:25am) Provider: Tre Baltazar MD Follow-up in: 1 week (if an appointment has not been made please call to schedule an appointment) Follow-up with [facility] in: 2 weeks (Please follow up with your GI doctor in the [facility]. If and appointment has not been made please call to schedule and appointment) Time spent Greater than 35 minutes copies to: Tre Baltazar MD; Darinel Solis MD, Precious L DO Dec 27, 2016 15:28
--- NOTE | 2016-12-27 15:41 | NUR ---
Discharge All discharge teaching and instructions done with pt and at bedside. All questions and concerns addressed. Pt has administered Lovenox in the past and did not have any questions on how to administer the medication. Hard copy of RX in pt chart. IV d/c'd intact. No items in the safe or pharmacy. Pt to f/u with PCP and GI MD in 2 weeks. Pt to schedule apts. Pt to f/u with ENT at scheduled apt time.
[2016-12-27] MEDS ORDERED: Propofol 10,000 mCg/mL 20 mL Inj ONE (15:58)
--- NOTE | 2017-01-01 17:04 | PATH ---
SURGICAL PATHOLOGY Attending Physician:Avinash Caceres MD CASE STATUS: Signed Out PATIENT NAME: ELVIA FERGUSON PID: [id number] : 1980 DATE COLLECTED:12/23/2016 00:00 SPECIMEN: 1: Stomach, Antrum, Biopsy 2: Gastric, Biopsy 3: Esophagus, Biopsy 4: Esophagus, Biopsy CLINICAL HISTORY: 1). ANTRUM BIOPSY 2). GASTRIC BODY 3). DISTAL ESOPHAGUS BIOPSY 4). MID ESOPHAGUS BIOPSY FINAL DIAGNOSIS: 1. Antrum, Biopsy: Gastric antral mucosa with chronic gastritis and focal intestinal metaplasia (highlighted on alcian blue stain). Negative for Helicobacter organisms by immunohistochemistry. Negative for dysplasia or malignancy. 2. Gastric Body, Biopsy: Gastric body mucosa with mild chronic gastritis. Helicobacter organisms not identified. Negative for intestinal metaplasia, dysplasia, and malignancy. 3. Distal Esophagus, Biopsy: Squamocolumnar junctional mucosa with up to 20 eosinophils per 40X high-power field. Negative for intestinal metaplasia, dysplasia, and malignancy. 4. Mid Esophagus, Biopsy: Squamous epithelium with increased intraepithelial eosinophils (greater than 50 per 40X high-power field). See comment. Negative for dysplasia or malignancy. ICD10: K20.0 NOTE: Parts 3 and 4: In the proper clinical setting, the histopathologic appearance in the mid and distal esophagus would support the clinical impression of eosinophilic esophagitis. The differential diagnosis includes drug reaction, gastroesophageal reflux and food allergies. GROSS DESCRIPTION: Received four formalin-filled containers, each labeled with the patient' s name. 1. Received in formalin, labeled with the patient' s name and "antrum", is one fragment of [place], soft tissue measuring 0.3 x 0.2 x 0.1 cm. The fragment is totally submitted in cassette 1A. 2. Received in formalin, labeled with the patient' s name and "body", are three fragments of [place], soft tissue ranging from 0.1 x 0.1 x 0.1 cm to 0.2 x 0.2 x 0.1 cm. The fragments are totally submitted in cassette 2A. 3. Received in formalin, labeled with the patient' s name and "DE", are four fragments of [place], soft tissue ranging from 0.1 x 0.1 x 0.1 cm to 0.3 x 0.2 x 0.1 cm. The fragments are totally submitted in cassette 3A. 4. Received in formalin, labeled with the patient' s name and "mid", are two fragments of [place], soft tissue ranging from 0.2 x 0.1 x 0.1 cm to 0.2 x 0.1 x 0.1 cm. The fragments are totally submitted in cassette 4A. ([id number]) MICRO DESCRIPTION: Part 1: An alcian blue stain was performed to evaluate for intestinal metaplasia and is focally positive. The control stain showed appropriate reactivity. An immunohistochemical stain was performed to evaluate for Helicobacter organisms and is negative. The control stain shows appropriate reactivity. * This test was developed and its performance characteristics determined by [facility]. It has not been cleared or approved by the U.S. Food and Drug Administration. The FDA has determined that such clearance or approval is not necessary. This test is used for clinical purposes. It should not be regarded as investigational or for research. ICD-9 CODES: CPT CODES: 1: 72171, 17668, 44137 2: 58912 3: 85434 4: 37540 Electronically Signed Out Eriberto Woodson MD, Ph.D. [facility] Pathology [facility] [address], [place] [address] Technical component performed at [facility], [address], [place], [address]
== END 2016-12-27 15:59 | disposition home or self-care (01) | DRG 204 ==
LOC: SED 12:02 → MPC 19:43 → OBSVTOIN 19:43
PROVIDERS: ADMIT Internal Medicine; ATTEND Neuromusculoskeletal Medicine & OMM
PROC: 0DB38ZX Excision of Lower Esophagus, Via Natural or Artificial Opening Endoscopic, Diagnostic (ICD-10-PCS; principal; 2016-12-23)
PROC: 0DB68ZX Excision of Stomach, Via Natural or Artificial Opening Endoscopic, Diagnostic (ICD-10-PCS; 2016-12-23)
PROC: 0DB28ZX Excision of Middle Esophagus, Via Natural or Artificial Opening Endoscopic, Diagnostic (ICD-10-PCS; 2016-12-23)
DX: R06.02 Shortness of breath (principal); E66.2 Morbid (severe) obesity with alveolar hypoventilation; Z68.44 Body mass index [BMI] 60.0-69.9, adult; I27.82 Chronic pulmonary embolism; R06.1 Stridor; I48.0 Paroxysmal atrial fibrillation; J45.909 Unspecified asthma, uncomplicated; I10 Essential (primary) hypertension; K29.70 Gastritis, unspecified, without bleeding; E03.9 Hypothyroidism, unspecified; R10.32 Left lower quadrant pain; F41.9 Anxiety disorder, unspecified; M79.7 Fibromyalgia; Z79.51 Long term (current) use of inhaled steroids; Z87.891 Personal history of nicotine dependence; Z79.01 Long term (current) use of anticoagulants; Z98.890 Other specified postprocedural states

== ENCOUNTER → 2017-01-28 | Day surgery (SDC) | payer OTHER ==
--- NOTE | 2017-01-23 14:18 | PCM.ANEPRE ---
Anesthesia Pre-Op Review Reason for Review: elevated bmi, hospital admission after last procedure Anesthesia Recommendations: Proceed with Procedure Additional Comments 36 yo for stone removal, stent. Patient has recent admission for dyspnea thought secondary to laryngospasm vs esophageal spasm. Comorbidities include bmi 66, afib with PE on anticoagulation and rate control. fibromyalgia, shelton on cpap. Patient has urology surgery under [facility] last month successfully. See previous anesthesia consult: 6 yo F with SHELTON, paroxysmal Atrial fibrillation, BMI 67 with recent unprovoked PE on 08/22/2016 getting cysto/stent on 12/17. Pt had negative hypercoagulability workup and interim TTE showed normal size and function with mild MR, EF 60-65%. Pt has been anticoagulated since PE diagnosis and had SpO2 98% on RA, clear lungs and no signs of respiratory distress at latest clinic visit. Pulmonary function likely optimized if patient remains on anticoagulation and no change in respiratory status before scheduled date. Okay to proceed with low-risk surgery without further outpatient workup pending evaluation by anesthesiologist on day of surgery. Chart Reviewed by: Chris Houston MD Chart Reviewed by: Connor Kothari MD Jan 23, 2017 14:18
[2017-01-28] VITALS (10 sets, daily range): BP systolic 118–146; BP diastolic 46–75; PULSE 63–70; RESP 14–16; O2SAT 94–98
[~2017-01-28] VITALS: Ht 162.6 cm; Wt 165.4 kg
[~2017-01-28] MED LIST changes: -APIX5TAB PO; +Acetaminophen IV 1,000 MG in IV Premix 1 EACH IV SCH; +Albuterol 2.5 mg/3 mL Inhalation Solution NEB ONE; +CeFAZolin Inj 3 GM in IV Premix 1 EACH IV SCH; +CeFAZolin Inj 3 Gm/ D5W 50 mL Bag IV ONE; +Dexamethasone 4 mg/mL Inj IVPUSH PRN; +EPHEDrine Sulfate 50 mg/mL Inj IVPUSH PRN; -HYDR-656 PO; -HYDR50TA76 PO; +HYDROmorphone 1 mg/mL Inj IVPUSH PRN; +Ketamine 10 mg/mL 20 mL Inj ONE; +LEVO100T6 PO; -LEVO88TA63 PO; +LOV120 SUBQ; +LURA120T PO; -LURA80TA3 PO; +Lactated Ringer's 1,000 ML IV ONE; +Lactated Ringer's 1,000 ML IV SCH; +Lactated Ringer's 500 ML IV PRN; +MetoCLOpramide 5 mg/mL 2 mL Inj IVPUSH PRN; +OXYC-466 PO; -OXYC1TAB24 PO; +Ondansetron 2 mg/mL 2 mL Inj IVPUSH PRN; -PANT20TA2 PO; +PANT40TA2 PO; +Phenylephrine 10,000 mCg/mL Inj IVPUSH PRN; +TOPI-31 PO; -TOPI200T7 PO; +WARF5TAB7 PO; -coumadin; +fentaNYL-PF 50 mCg/mL 2 mL Inj ONE
--- NOTE | 2017-01-28 17:09 | PCM.HPANE ---
Patient Data Surgeon Admitting Provider: Attending Provider:Taurus Kc MD Primary Care Physician:Tre Baltazar MD Other Provider:Gabriela Dexteringham Anesthesia Reason for Visit Left Ureteral Stone Ht/WT & BMI Height (Feet): 5 Height (Inches): 4 Weight (Kilograms): 165.4 Body Mass Index 62.00 Allergies Coded Allergies: azithromycin (Verified Allergy, Severe, causes a-fib, 01/28/17) White (Verified Allergy, Intermediate, Rash, 01/28/17) citric acid (Verified Allergy, Intermediate, Rash, 01/28/17) hydrocodone bitartrate (Verified Allergy, Mild, GI, 01/28/17) Past Anesthesia History Anesthesia History: Positive for:: Anesthesia Reactions (possibly, states ' weezy and sob' started after stent placement), Denies:: Abnormal Airway, Difficult Intubation, Fam Anesthesia Reaction, Fam Malignant Hypertherm, Malignant Hyperthermia Diabetes History Hx Diabetes?: No MRSA MRSA: No Medications Blood Thinner: Coumadin, Lovenox Last Dose Blood Thinner: Jan 21, 2017 Home Meds Incl Beta Will: No Active Scripts Pantoprazole DR (Protonix)40 Mg Ptesbn25 Mg PO BID #60 TABLET Ref 0 Prov:Fannie Newsome L DO 12/27/16 Enoxaparin (Lovenox)120 Mg/0.8 Ml Wsctdpe137 Mg SUBQ BID 7 Days Ref 0 Prov:Fannie Newsome L DO 12/27/16 Reported Medications Warfarin Sodium 5 Mg Upwzmy64 Mg PO DAILY EXCEPT SAT/SAT 30 Days Ref 0 12/23/16 Warfarin Sodium 5 Mg Ywsdyy66.5 Mg PO WEDNESDAYS 30 Days Ref 0 12/23/16 Warfarin Sodium 5 Mg Tablet5 Mg PO TUESDAYS 30 Days Ref 0 12/23/16 Lurasidone (Latuda)120 Mg Aulgdx929 Mg PO HS 12/23/16 Topiramate 100 Mg Hxcuhj673 Mg PO BID Ref 0 12/23/16 oxyCODONE-Acetaminophen 10-325 mg 1 Each Tablet1 Tablet PO Q6H PRN For Pain Ref 0 12/23/16 Levothyroxine 100 Mcg Ljgvia776 Mcg PO QAM For Thyroid Replacement Ref 0 12/23/16 Gabapentin 600 Mg Tablet1,200 Mg PO TID Ref 0 08/23/16 Albuterol Neb Soln 2.5 Mg/3 Ml Vial.neb2.5 Mg INHALATION Q4H PRN For Wheezing Ref 0 08/23/16 Albuterol HFA (Proair HFA)8.5 Gm Hfa.aer.ad2 Puffs INHALATION Q4H PRN For Shortness of Breath #1 INHALER 08/23/16 Verapamil ER 240 Mg Powh856 Mg PO QAM Ref 0 08/23/16 Medroxyprogesterone Acetate (Depo-Provera)150 Mg/1 Ml Jxduqix176 Mg IM O2Owmfwl 08/23/16 Clonazepam 1 Mg Tablet1-2 Mg PO TID PRN For Anxiety or Agitation Ref 0 08/23/16 diphenhydrAMINE HCl (Benadryl)25 Mg Qhbtgcs70-45 Mg PO DAILY PRN For Itching Ref 0 08/23/16 Flecainide Acetate 100 Mg Vqkder618 Mg PO BIDWM 08/23/16 Hydrochlorothiazide 25 Mg Wgiclj90 Mg PO QAM 30 Days Ref 0 08/23/16 Baclofen 10 Mg Iggbfb09 Mg PO TID Ref 0 08/23/16 Potassium Chloride 20 Meq Tab.er.prt20 Meq PO BIDWM 30 Days Ref 0 TAKE WITH FOOD 08/23/16 Discontinued Reported Medications Nystatin 1 Each Powder.ea.1 Applic TOP BID 08/23/16 Dihydroergotamine Mesylate (Migranal)1 Ml [place].pump1 Ml NS q15 mins x2 BID PRN mirgane 08/23/16 Sumatriptan Succinate 100 Mg Vgcfwf692 Mg PO DIRECTED PRN migrane one tablet with onset of migrane, may repeat in 2 hrs. max dose 2 tabs in 24hrs 08/23/16 Ondansetron 8 Mg Tablet8 Mg PO TID PRN For Nausea 08/23/16 History History of ENT Problems?: No HEENT History: Positive for:: Dysphagia Hearing Problem (mild gakona) Sinus Problem Denies:: Abnormal Airway Cataracts Difficult Intubation TMJ Denture Type: None Teeth Condition: Within Normal Limits Hx of Heart Problems?: Yes Cardiovascular History: Positive for:: Atrial Fibrillation Hypertension Irregular Heartbeat Denies:: AICD Cardiac Surgery Chest Pain Congestive Heart Failure Edema Heart Murmur Pacemaker Thrombophlebitis Valvular Heart Disease Other Cardiac History: stopped coumadin on (01/21- started on Lovenox pre-op) Hx of Respiratory Problem?: Yes Respiratory History: Positive for:: Asthma Dyspnea (recent IP admission 12/23) Pulmonary Embolism Tuberculosis Use of C-PAP Machine Use of Inhalers / NEBS Denies:: COPD Chest Surgery Cough Emphysema Hemoptysis Oxygen Administration Pneumonia Hx Neurologic Problems?: Yes Neurological History: Positive for:: Headaches Denies:: Alzheimer's Disease CVA Dementia Dizziness Multiple Sclerosis Parkinson's Disease Seizures Hx of GI Problems?: Yes Hx of Problems?: Yes Genitourinary History: Positive for:: Kidney Stones (left ureteral stone- last procedure 12/17) Urinary Tract Infection Denies:: HX of Hemodialysis HX of Peritoneal Dialysis: No Female Hx: Denies:: Currently Endometriosis Pelvic Inflammatory Problems with Breasts? Skin History: Denies:: History Skin Disorders? (MALIGNANT MELANOMA, OVER 20 SPOTS REMOVED) Pressure Ulcers Hx Musculoskeletal Problems?: Yes Musculoskeletal History: Positive for:: Back Injury Denies:: Joint Replacement Musculoskeletal Trauma Hx of Psycho/Social Problems?: Yes Psycho Social History: Positive for:: Anxiety Bipolar Disorder Hx Depression Suicide Attempt (no current ideation. last attempt 8 years ago) Hx Surgeries?: Yes (C-SECT 2002, ; GALBLADDER 2003; ABDM ABCESS ; T&A 82) Hx Any Other Health Problems?: Yes Other History: Positive for:: Cancer (malignant melanoma-left breast) Hospitalization (cardiac and psych) Thyroid Disease Denies:: Endocrine Disease History Blood Transfusions: Denies:: Blood Transfuse Reaction Blood Transfusions Hx Diabetes: No Hx Alcohol Use: Yes (past)Hx Substance Use: Yes (Past) Smoking Status: Former Smoker Have You Smoked inLast 12 mo: Yes (Quit 05/22) Stop/Bang S-Snoring: Do You Snore Loudly: No T-Tired: feel tired, fatigued: Yes O-Obsered: Observed not breath: No P-Blood Pressure: treated: Yes B- Body Mass Index > 35 kg/m2: Yes A- Age over 50: No N- Neck Large Circumference: Yes G- Gender Male: No SRI Total Score: 4 Risk Assessment Category Category 1A: Patient has history of documented sleep apnea, and HAS NOT received any narcotic, sedative or anesthesia administration during this stay. Category 1B: Patient has history of documented sleep apnea, and HAS received any narcotic , sedative or anesthesia administration during this stay Category 2: Patient has SUSPECTED Obstructive Sleep Apnea, and HAS received any narcotic , sedative or anesthesia administration during this stay. Category 3: Patient has SUSPECTED Obstructive Sleep Apnea and HAS NOT received narcotic, sedative or anesthesia administration during this stay. Category 4: Outpatient in Procedural Areas with known sleep apnea or who screen positive for High Risk via the STOP/BANG questionnaire. Exam Exam Vital Signs Vital Signs Date Time Temp Pulse Resp B/P Pulse Ox O2 Delivery O2 Flow Rate FiO2 01/28/17 15:00 36.4 66 16 127/63 96 Room Air General Appearance: Alert, Oriented X3, Cooperative, No Acute Distress HEENT/AIRWAY: MP 2 Lungs: Clear to Auscultation, Normal Air Movement Heart: Exam Unremarkable, Regular Rate/Rhythm, No Murmurs/Rubs/Gallops Additional Information morbidly obese Meds/Labs/Diagnostics Admission Meds Current Medications Acetaminophen 1000 mg 1,000 mg STK-MED ONCE IV Last administered on 01/28/17 16:00; Start 01/28/17 at 14:59; Stop 01/28/17 at 15:01; Status DC Lactated Ringer's (Lr) 1,000 ml @ ud STK-MED ONCE IV Last administered on 01/28 15:00; Start 01/28/17 at 15:00; Stop 01/28/17 at 16:07; Status DC Labs Test 01/28/17 16:10 Prothrombin Time 10.7sec (8.1-12.5) Prothromb Time International Ratio 1.00ratio Potassium Level 3.9mEq/L (3.5-5.2) Plan Impression Patient chart reviewed, patient interviewed and anesthestic plan with risks, benefits, and alternatives discussed, and informed consent obtained. NPO per Anesth. Guidelines: Yes ASA Physical Status: ASA3 Severe Disease Anesthetic Plan: GA Bene/Risks/Altern/Consents: Yes HP Complete Prior to Induction: Yes Julian Arevalo MD Jan 28, 2017 17:08
[2017-01-28] MEDS: fentaNYL-PF 50 mCg/mL 2 mL Inj IVPUSH PRN ×2 (18:00→18:20)
--- NOTE | 2017-01-28 18:06 | PCM.ANEP1 ---
Post Anesthesia PACU Phase 1 Assessment Vital Signs Vital Signs Date Time Temp Pulse Resp B/P Pulse Ox O2 Delivery O2 Flow Rate FiO2 01/28/17 15:00 36.4 66 16 127/63 96 Room Air Anesthetic Administered: GA Level of Alertness: Awake, talking COLEY's with Equal Strength: Yes Pain: No Nausea or Vomiting: No CV Function & Hydration Stable: Yes Airway Device: Oxygen Delivery: Room Air Lungs: Clear to Auscultation, Normal Air Movement Dermatome Level: Full Sensation PACU Phase 2 Assessment Complications: No Follow up Care: N/A Patient Instructions Provided: Yes Julian Arevalo MD Jan 28, 2017 18:06
--- NOTE | 2017-02-07 12:23 | OP ---
[address] [address] OPERATIVE REPORT PATIENT: ELVIA FERGUSON : 1980 MR#: [id number] ADMIT: 01/28/2017 JOB ID: [id number] DATE OF SURGERY: 01/28/2017 SURGEON: Taurus Kc M.D. PREOPERATIVE DIAGNOSIS(ES): 1. Obstructing 5 mm left distal ureteral calculus. 2. Retained left indwelling stent. POSTOPERATIVE DIAGNOSIS(ES): 1. Obstructing 5 mm left distal ureteral calculus. 2. Retained left indwelling stent. PROCEDURES PERFORMED: 1. Cystoscopy with left ureteral stent removal. 2. Cystoscopy, left ureteroscopic stone extraction. ANESTHESIA: General. FINDINGS: Bladder unremarkable. Stone was encountered in the distal left ureter as expected. No additional significant findings. PROCEDURE SUMMARY: The patient was positioned supine, administered general anesthesia. She was then repositioned in the semi-lithotomy. The low abdomen, genitalia and groin were draped in a sterile fashion. A 22-Slovenian panendoscope was inserted through the lower urinary tract with the findings as described above. Next, the four body graspers were used to engage the left ureteral stent and remove it without incident. A Glidewire was then advanced into the left collecting system under directed fluoroscopic guidance. Next, the semi-rigid ureteroscope was introduced in the lower urinary tract and advanced into the left distal ureter and advanced under direct fluoroscopic guidance. The stone was encountered. A 3.0 tipped helical free wire basket was then selected, advanced through the ureteroscope with the opened. The stone was then engaged and grasped securely and removed without incident. No ureteral stent was replaced. The bladder was then drained completely and all instrumentation was removed. The patient was then awakened, transferred to the [facility] and transported to recovery in good condition.
[2017-02-08 10:09] LABS: Stone Color Tan (.)
== END | disposition home or self-care (01) ==
LOC: SAS 13:59
PROVIDERS: ATTEND Specialist
PROC: 0TC78ZZ Extirpation of Matter from Left Ureter, Via Natural or Artificial Opening Endoscopic (ICD-10-PCS; principal; 2017-01-28 16:15)
DX: N20.1 Calculus of ureter (principal); Z46.6 Encounter for fitting and adjustment of urinary device; Z79.01 Long term (current) use of anticoagulants; Z79.51 Long term (current) use of inhaled steroids; Z79.899 Other long term (current) drug therapy; Z87.891 Personal history of nicotine dependence; G47.33 Obstructive sleep apnea (adult) (pediatric); I48.0 Paroxysmal atrial fibrillation; Z86.711 Personal history of pulmonary embolism; I10 Essential (primary) hypertension; Z87.442 Personal history of urinary calculi
CPT/HCPCS: 36415; 52352; 76000; 82360; 84132; 85610; J0131; J0690; J2250; J3010; J7120; J7613